=== PATIENT | female | born 1960 | race African-American/Black ===

== ENCOUNTER 2020-07-28 17:08 | Outpatient (REF) | payer MEDICARE, BC, SELFPAY ==
[2020-07-28 17:19] LABS: MANUAL DIFF FLAG NO
[2020-07-28 17:26] LABS: Basophils Percent Auto 0.4 % (0-2); Eosinophils Absolute Auto 0.3 X10*3/uL (0.0-0.4); Eosinophils Percent Auto 4.3 % (0-4); Hematocrit 41.4 % (37-47); Imm Gran Abs Auto 0.04 X10*3/uL (0.00-0.03); Imm Gran Pct Auto 0.6 % (0.0-0.4); Lymphocytes Absolute Auto 1.7 X10*3/uL (1.2-4.9); Lymphocytes Percent Auto 23.8 % (20-40); Mean Corpuscular HGB Conc 31.4 g/dl (31.0-35.0); Mean Corpuscular Volume 92.2 fL (80-98); Mean Platelet Volume 11.6 fL (9.4-12.3); Monocytes Absolute Auto 0.6 X10*3/uL (0.1-1.2); Monocytes Percent Auto 8.3 % (2-11); Neutrophils Absolute Auto 4.6 X10*3/uL (2.0-8.3); Neutrophils Percent Auto 62.6 % (45-73); Platelet Count 284 X10*3/uL (160-400); Red Blood Count 4.49 X10*6/uL (4.20-5.50); Red Cell Distribution Width 13.9 % (11.0-16.0); White Blood Count 7.3 X10*3/uL (4.8-10.8)
[2020-07-28 17:48] LABS: Alanine Aminotransferase 31 U/L (0-31); Albumin Level 3.6 g/dL (3.5-5.0); Alkaline Phosphatase 119 U/L (39-117); Anion Gap 15 (12-20); Aspartate Amino Transferase 37 U/L (5-31); Bilirubin Total 0.5 mg/dL (0.0-1.0); Blood Urea Nitrogen 16 mg/dL (9-16); Calcium 8.7 mg/dL (8.4-10.2); Carbon Dioxide 22 mmol/L (22-29); Chloride 102 mmol/L (96-108); Estimated Glomerular Filt Rate > 60; Glucose Random 100 mg/dL (60-115); Potassium 5.1 mmol/l (3.3-5.1); Sodium 134 mmol/L (135-145); Total Protein 7.1 g/dL (6.5-8.0)
== END 2020-07-28 17:09 | disposition home or self-care (01) ==
LOC: HO.HVNA 17:08
PROVIDERS: Visit Provider Internal Medicine Infectious Disease
DX: M86.9 Osteomyelitis, unspecified (principal)
CPT/HCPCS: 36415; 80053; 85025

== ENCOUNTER 2020-08-04 14:05 | Outpatient (REF) | payer MEDICARE, MEDICAID, BC, SELFPAY ==
[2020-08-04 14:13] LABS: MANUAL DIFF FLAG NO
[2020-08-04 14:19] LABS: Basophils Percent Auto 0.7 % (0-2); Eosinophils Absolute Auto 0.3 X10*3/uL (0.0-0.4); Eosinophils Percent Auto 6.4 % (0-4); Hematocrit 41.2 % (37-47); Hemoglobin 12.7 g/dl (12.0-16.0); Imm Gran Abs Auto 0.01 X10*3/uL (0.00-0.03); Imm Gran Pct Auto 0.2 % (0.0-0.4); Lymphocytes Percent Auto 22.9 % (20-40); Mean Corpuscular HGB Conc 30.8 g/dl (31.0-35.0); Mean Corpuscular Hemoglobin 28.5 pg (27.0-33.0); Mean Corpuscular Volume 92.4 fL (80-98); Mean Platelet Volume 12.1 fL (9.4-12.3); Monocytes Absolute Auto 0.3 X10*3/uL (0.1-1.2); Monocytes Percent Auto 6.9 % (2-11); Neutrophils Absolute Auto 2.7 X10*3/uL (2.0-8.3); Neutrophils Percent Auto 62.9 % (45-73); Platelet Count 244 X10*3/uL (160-400); Red Blood Count 4.46 X10*6/uL (4.20-5.50); Red Cell Distribution Width 13.8 % (11.0-16.0); White Blood Count 4.4 X10*3/uL (4.8-10.8)
[2020-08-04 15:28] LABS: Alanine Aminotransferase 18 U/L (0-31); Albumin Level 3.4 g/dL (3.5-5.0); Alkaline Phosphatase 111 U/L (39-117); Anion Gap 14 (12-20); Aspartate Amino Transferase 19 U/L (5-31); Bilirubin Total 0.4 mg/dL (0.0-1.0); Blood Urea Nitrogen 15 mg/dL (9-16); Calcium 8.5 mg/dL (8.4-10.2); Carbon Dioxide 27 mmol/L (22-29); Chloride 102 mmol/L (96-108); Estimated Glomerular Filt Rate > 60; Glucose Random 101 mg/dL (60-115); Potassium 3.9 mmol/l (3.3-5.1); Sodium 139 mmol/L (135-145); Total Protein 6.5 g/dL (6.5-8.0)
== END 2020-08-04 14:06 | disposition home or self-care (01) ==
LOC: HO.LNP 14:05
PROVIDERS: Visit Provider Internal Medicine Infectious Disease
DX: M86.9 Osteomyelitis, unspecified (principal)
CPT/HCPCS: 36415; 80053; 85025

== ENCOUNTER 2020-08-10 14:11 | Outpatient (REF) | payer MEDICARE, BC, SELFPAY ==
[2020-08-10 14:13] LABS: MANUAL DIFF FLAG NO
[2020-08-10 14:18] LABS: Basophils Absolute Auto 0.1 X10*3/uL (0.0-0.2); Basophils Percent Auto 1.1 % (0-2); Eosinophils Absolute Auto 0.4 X10*3/uL (0.0-0.4); Eosinophils Percent Auto 8.3 % (0-4); Hematocrit 39.4 % (37-47); Hemoglobin 12.1 g/dl (12.0-16.0); Imm Gran Abs Auto 0.01 X10*3/uL (0.00-0.03); Imm Gran Pct Auto 0.2 % (0.0-0.4); Lymphocytes Absolute Auto 1.3 X10*3/uL (1.2-4.9); Lymphocytes Percent Auto 28.9 % (20-40); Mean Corpuscular HGB Conc 30.7 g/dl (31.0-35.0); Mean Corpuscular Hemoglobin 28.1 pg (27.0-33.0); Mean Corpuscular Volume 91.6 fL (80-98); Mean Platelet Volume 12.6 fL (9.4-12.3); Monocytes Absolute Auto 0.4 X10*3/uL (0.1-1.2); Monocytes Percent Auto 9.4 % (2-11); Neutrophils Absolute Auto 2.4 X10*3/uL (2.0-8.3); Neutrophils Percent Auto 52.1 % (45-73); Platelet Count 228 X10*3/uL (160-400); Red Cell Distribution Width 13.8 % (11.0-16.0); White Blood Count 4.6 X10*3/uL (4.8-10.8)
[2020-08-10 14:54] LABS: Alanine Aminotransferase 17 U/L (0-31); Albumin Level 3.3 g/dL (3.5-5.0); Alkaline Phosphatase 97 U/L (39-117); Anion Gap 10 (12-20); Aspartate Amino Transferase 16 U/L (5-31); Bilirubin Total 0.4 mg/dL (0.0-1.0); Blood Urea Nitrogen 16 mg/dL (9-16); Calcium 8.5 mg/dL (8.4-10.2); Carbon Dioxide 29 mmol/L (22-29); Chloride 104 mmol/L (96-108); Estimated Glomerular Filt Rate > 60; Glucose Random 123 mg/dL (60-115); Potassium 4.4 mmol/l (3.3-5.1); Sodium 139 mmol/L (135-145); Total Protein 6.2 g/dL (6.5-8.0)
== END 2020-08-10 14:12 | disposition home or self-care (01) ==
LOC: HO.LNP 14:11
PROVIDERS: Visit Provider Internal Medicine
DX: M86.9 Osteomyelitis, unspecified (principal)
CPT/HCPCS: 36415; 80053; 85025

== ENCOUNTER 2020-08-20 13:03 | Outpatient (REF) | payer MEDICARE, BC, SELFPAY ==
[2020-08-20 13:18] LABS: MANUAL DIFF FLAG NO
[2020-08-20 13:33] LABS: Basophils Percent Auto 0.6 % (0-2); Eosinophils Absolute Auto 0.4 X10*3/uL (0.0-0.4); Hematocrit 41.1 % (37-47); Hemoglobin 12.8 g/dl (12.0-16.0); Imm Gran Abs Auto 0.02 X10*3/uL (0.00-0.03); Imm Gran Pct Auto 0.4 % (0.0-0.4); Lymphocytes Absolute Auto 1.3 X10*3/uL (1.2-4.9); Lymphocytes Percent Auto 24.9 % (20-40); Mean Corpuscular HGB Conc 31.1 g/dl (31.0-35.0); Mean Corpuscular Hemoglobin 28.6 pg (27.0-33.0); Mean Corpuscular Volume 91.9 fL (80-98); Mean Platelet Volume 12.8 fL (9.4-12.3); Monocytes Absolute Auto 0.4 X10*3/uL (0.1-1.2); Monocytes Percent Auto 7.8 % (2-11); Neutrophils Absolute Auto 2.9 X10*3/uL (2.0-8.3); Neutrophils Percent Auto 58.3 % (45-73); Platelet Count 206 X10*3/uL (160-400); Red Blood Count 4.47 X10*6/uL (4.20-5.50)
[2020-08-20 13:58] LABS: Alanine Aminotransferase 18 U/L (0-31); Albumin Level 3.3 g/dL (3.5-5.0); Alkaline Phosphatase 117 U/L (39-117); Anion Gap 11 (12-20); Aspartate Amino Transferase 16 U/L (5-31); Bilirubin Total 0.3 mg/dL (0.0-1.0); Blood Urea Nitrogen 11 mg/dL (9-16); Calcium 8.5 mg/dL (8.4-10.2); Carbon Dioxide 29 mmol/L (22-29); Chloride 103 mmol/L (96-108); Estimated Glomerular Filt Rate > 60; Glucose Random 110 mg/dL (60-115); Potassium 3.9 mmol/l (3.3-5.1); Sodium 139 mmol/L (135-145); Total Protein 6.1 g/dL (6.5-8.0)
== END 2020-08-20 13:04 | disposition home or self-care (01) ==
LOC: HO.HVNA 13:03
PROVIDERS: Visit Provider Internal Medicine Infectious Disease
DX: M86.9 Osteomyelitis, unspecified (principal)
CPT/HCPCS: 36415; 80053; 85025

== ENCOUNTER 2020-10-28 14:38 | Outpatient (REF) | payer MEDICARE, MEDICAID, BC, SELFPAY ==
[2020-10-29 09:41] LABS: Glucose Urine UA NEG (NEG); Leukocyte Esterase Urine 2+ (NEG); Nitrite Urine NEG (NEG); PH 6.5 (5.0-8.0); Specific Gravity - Urine <= 1.005 (1.005-1.025); Urine Blood 1+ (NEG); Urine Ketones NEG (NEG); Urine Protein NEG (NEG-TRACE)
[2020-10-29 09:42] LABS: Appearance Urine CLEAR; Color Urine STRAW
[2020-10-29 10:00] LABS: Amorphous Sediment Urine TRACE /LPF; Bacteria Urine TRACE /LPF; RBC Urine 0-2 /HPF (0); Renal Epithelial Cells Urine TRACE /LPF; Squamous Epithelial Cell Urine TRACE /LPF
== END 2020-10-28 14:39 | disposition home or self-care (01) ==
LOC: HO.LNP 14:38
PROVIDERS: Visit Provider Internal Medicine
DX: N31.2 Flaccid neuropathic bladder, not elsewhere classified (principal)
CPT/HCPCS: 81001; 87086

== ENCOUNTER 2020-11-17 14:30 | Outpatient (REF) | payer MEDICARE, BC, MEDICAID, SELFPAY ==
--- NOTE | ~2020-11-17 | US_ITS ---
EXAMINATION: US DIAGNOSTIC ULTRASOUND BREAST, RIGHT US DIAGNOSTIC ULTRASOUND BREAST, LEFT CLINICAL INFORMATION: Bilateral breast pain. Recent normal mammogram at outside facility. COMPARISON: Outside mammography 09/02/2020, 06/24/2019, 05/31/2018 ([facility]). TECHNIQUE: Ultrasound of each breast is targeted to the areas of clinical concern using grayscale imaging and color Doppler without and with harmonics. Each side is imaged 10:00 through 3:00 position. FINDINGS: Right: There is no focal suspicious finding. There is no cystic or solid mass, architectural abnormality, duct ectasia, or edema in the soft tissue planes. No skin thickening. Left: There is no focal suspicious finding. There is no cystic or solid mass, architectural abnormality, duct ectasia, or edema in the soft tissue planes. No skin thickening. Results are discussed with the patient at time of visit. US/US breast LT limited IMPRESSION: Normal study. ASSESSMENT: BI-RADS 1: Negative RECOMMENDATION: 1. Patient's bilateral breast pain should be based on the clinical impression. 2. Otherwise, routine annual screening mammography. This patient's information was entered into a reminder system with a target due date for their next mammogram.
--- NOTE | ~2020-11-17 | US_ITS ---
EXAMINATION: US DIAGNOSTIC ULTRASOUND BREAST, RIGHT US DIAGNOSTIC ULTRASOUND BREAST, LEFT CLINICAL INFORMATION: Bilateral breast pain. Recent normal mammogram at outside facility. COMPARISON: Outside mammography 09/02/2020, 06/24/2019, 05/31/2018 ([facility]). TECHNIQUE: Ultrasound of each breast is targeted to the areas of clinical concern using grayscale imaging and color Doppler without and with harmonics. Each side is imaged 10:00 through 3:00 position. FINDINGS: Right: There is no focal suspicious finding. There is no cystic or solid mass, architectural abnormality, duct ectasia, or edema in the soft tissue planes. No skin thickening. Left: There is no focal suspicious finding. There is no cystic or solid mass, architectural abnormality, duct ectasia, or edema in the soft tissue planes. No skin thickening. Results are discussed with the patient at time of visit. US/US breast RT limited IMPRESSION: Normal study. ASSESSMENT: BI-RADS 1: Negative RECOMMENDATION: 1. Patient's bilateral breast pain should be based on the clinical impression. 2. Otherwise, routine annual screening mammography. This patient's information was entered into a reminder system with a target due date for their next mammogram.
== END 2020-11-17 14:31 | disposition home or self-care (01) ==
LOC: HO.MAMMO 14:30
PROVIDERS: PCP Internal Medicine; Visit Provider Nurse Practitioner Family
DX: N64.4 Mastodynia (principal)
CPT/HCPCS: 76642

== ENCOUNTER 2020-11-24 11:42 | Outpatient (REF) | payer MEDICARE, BC, SELFPAY ==
[2020-11-24 14:04] LABS: Appearance Urine CLOUDY; Color Urine YELLOW; Glucose Urine UA NEG (NEG); Leukocyte Esterase Urine 2+ (NEG); Nitrite Urine POS (NEG); PH 6.5 (5.0-8.0); Specific Gravity - Urine 1.015 (1.005-1.025); Urine Blood 3+ (NEG); Urine Ketones NEG (NEG); Urine Protein NEG (NEG-TRACE)
[2020-11-24 14:22] LABS: Bacteria Urine 4+ /LPF; Renal Epithelial Cells Urine TRACE /LPF; Squamous Epithelial Cell Urine 2+ /LPF; WBC Urine 30-49 /HPF (0-4)
== END 2020-11-24 11:43 | disposition home or self-care (01) ==
LOC: HO.HMGCLNP 11:42
PROVIDERS: Visit Provider Urology
DX: R30.0 Dysuria (principal); R82.90 Unspecified abnormal findings in urine; R82.998 Other abnormal findings in urine
CPT/HCPCS: 81001

== ENCOUNTER → 2020-12-16 13:00 | Outpatient (BNVA) | payer MEDICARE, BC, SELFPAY | PROVIDERS: PCP Internal Medicine; Visit Provider Hospitalist | DX: Z13.89 Encounter for screening for other disorder (principal) | CPT/HCPCS: Q3014 ==

== ENCOUNTER 2021-01-10 14:10 | Outpatient (REF) | payer MEDICARE, BC, SELFPAY ==
--- NOTE | ~2021-01-10 | XR_ITS ---
EXAMINATION: XR FOOT, RIGHT CLINICAL INFORMATION: Edema. COMPARISON: None. TECHNIQUE: AP, lateral, and oblique views of the right foot. FINDINGS: Diffuse osteopenia. No displaced fracture. No dislocation. Joint space narrowing with marginal osteophytes at the 1st metatarsophalangeal joint and hallux sesamoids. No osseous erosion. Tiny plantar calcaneal spur. XR/XR foot RT min 3V IMPRESSION: Prominent osteopenia. 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 Tiny plantar calcaneal spur.
== END 2021-01-10 14:11 | disposition home or self-care (01) ==
LOC: HO.XRAY 14:10
PROVIDERS: PCP Internal Medicine; Visit Provider Internal Medicine
DX: R60.0 Localized edema (principal)
CPT/HCPCS: 73630

== ENCOUNTER → 2021-01-21 14:04 | Outpatient (BNVA) | payer MEDICARE, BC, SELFPAY | PROVIDERS: PCP Internal Medicine; Visit Provider Hospitalist | DX: Z13.89 Encounter for screening for other disorder (principal) | CPT/HCPCS: Q3014 ==

== ENCOUNTER 2021-01-26 14:17 | Outpatient (REF) | payer MEDICARE, BC, SELFPAY ==
[2021-01-26 14:24] LABS: MANUAL DIFF FLAG NO
[2021-01-26 14:37] LABS: Basophils Percent Auto 0.6 % (0-2); Eosinophils Absolute Auto 0.3 X10*3/uL (0.0-0.4); Eosinophils Percent Auto 6.5 % (0-4); Hematocrit 47.1 % (37-47); Hemoglobin 14.6 g/dl (12.0-16.0); Imm Gran Abs Auto 0.02 X10*3/uL (0.00-0.03); Imm Gran Pct Auto 0.4 % (0.0-0.4); Lymphocytes Absolute Auto 0.9 X10*3/uL (1.2-4.9); Lymphocytes Percent Auto 18.2 % (20-40); Mean Corpuscular Hemoglobin 28.2 pg (27.0-33.0); Mean Corpuscular Volume 91.1 fL (80-98); Mean Platelet Volume 12.7 fL (9.4-12.3); Monocytes Absolute Auto 0.5 X10*3/uL (0.1-1.2); Monocytes Percent Auto 10.2 % (2-11); Neutrophils Absolute Auto 3.1 X10*3/uL (2.0-8.3); Neutrophils Percent Auto 64.1 % (45-73); Platelet Count 236 X10*3/uL (160-400); Red Blood Count 5.17 X10*6/uL (4.20-5.50); Red Cell Distribution Width 15.3 % (11.0-16.0); White Blood Count 4.9 X10*3/uL (4.8-10.8)
[2021-01-26 15:11] LABS: Alanine Aminotransferase 15 U/L (0-31); Albumin Level 3.7 g/dL (3.5-5.0); Alkaline Phosphatase 170 U/L (39-117); Anion Gap 13 (12-20); Aspartate Amino Transferase 23 U/L (5-31); Bilirubin Total 0.5 mg/dL (0.0-1.0); Blood Urea Nitrogen 12 mg/dL (9-16); Carbon Dioxide 28 mmol/L (22-29); Chloride 103 mmol/L (96-108); Cholesterol 197 mg/dL; Estimated Glomerular Filt Rate > 60; Glucose Fasting 72 mg/dL (60-99); HDL Cholesterol 43 mg/dL; LDL Cholesterol Calculated 138 mg/dl; Potassium 4.2 mmol/L (3.3-5.1); Sodium 140 mmol/L (135-145); Total Protein 6.8 g/dL (6.5-8.0); Triglycerides 82 mg/dL
[2021-01-26 15:44] LABS: Folate > 20.0 ng/mL (> or = 4.0); Vitamin B12 1550 pg/mL (200-900)
[2021-01-30 21:46] LABS: Vitamin D 25-OH, D2 <4 ng/mL; Vitamin D 25-OH, D3 55 ng/mL; Vitamin D 25-OH, Total 55 ng/mL (30-100)
== END 2021-01-26 14:18 | disposition home or self-care (01) ==
LOC: HO.LNP 14:17
PROVIDERS: Visit Provider Internal Medicine
DX: E53.8 Deficiency of other specified B group vitamins (principal); E55.9 Vitamin D deficiency, unspecified; D64.9 Anemia, unspecified; E78.5 Hyperlipidemia, unspecified; J44.9 Chronic obstructive pulmonary disease, unspecified
CPT/HCPCS: 80053; 80061; 82306; 82607; 82746; 85025

== ENCOUNTER 2022-03-03 15:45 | Outpatient (REF) | payer MEDICARE, MEDICAID, SELFPAY ==
[2022-03-03 16:08] LABS: MANUAL DIFF FLAG NO
[2022-03-03 16:18] LABS: Venous Blood Gas Refer to POC result
[2022-03-03 16:20] LABS: VBG Base Excess -1.1 mmol/L; VBG pCO2 39 mmHg; VBG pH 7.38 (7.32-7.43); VBG pO2 68 mmHg
[2022-03-03 16:21] LABS: VBG HCO3 23 mmol/L (22-26)
[2022-03-03 16:49] LABS: Basophils Percent Auto 0.6 % (0-2); Eosinophils Absolute Auto 0.3 X10*3/uL (0.0-0.4); Eosinophils Percent Auto 5.7 % (0-4); Hematocrit 43.7 % (37.0-47.0); Hemoglobin 13.7 g/dl (12.0-16.0); Imm Gran Abs Auto 0.01 X10*3/uL (0.00-0.03); Imm Gran Pct Auto 0.2 % (0.0-0.4); Lymphocytes Absolute Auto 1.1 X10*3/uL (1.2-4.9); Lymphocytes Percent Auto 21.2 % (20-40); Mean Corpuscular HGB Conc 31.4 g/dl (31.0-35.0); Mean Corpuscular Volume 92.4 fL (80.0-98.0); Mean Platelet Volume 12.5 fL (9.4-12.3); Monocytes Absolute Auto 0.6 X10*3/uL (0.1-1.2); Monocytes Percent Auto 12.2 % (2-11); Neutrophils Absolute Auto 3.2 x10*3/uL (2.0-8.3); Neutrophils Percent Auto 60.1 % (45-73); Platelet Count 184 X10*3/uL (160-400); Red Blood Count 4.73 X10*6/uL (4.20-5.50); Red Cell Distribution Width 14.5 % (11.0-16.0); White Blood Count 5.2 X10*3/uL (4.8-10.8)
[2022-03-03 17:22] LABS: Alanine Aminotransferase 26 U/L (0-31); Albumin Level 3.8 g/dL (3.5-5.0); Alkaline Phosphatase 132 U/L (39-117); Anion Gap 14 (12-20); Aspartate Amino Transferase 30 U/L (5-31); Bilirubin Direct < 0.2 mg/dL (0.0-0.5); Bilirubin Total 0.3 mg/dL (0.0-1.0); Blood Urea Nitrogen 13 mg/dL (9-16); Calcium 9.4 mg/dL (8.4-10.2); Carbon Dioxide 24 mmol/L (22-29); Chloride 105 mmol/L (96-108); Estimated Glomerular Filt Rate > 60; Glucose Random 97 mg/dL (60-115); Potassium 4.5 mmol/L (3.3-5.1); Sodium 138 mmol/L (135-145); Total Protein 7.1 g/dL (6.5-8.0)
[2022-03-03 17:36] LABS: Erythrocyte Sedimentation Rate 17 MM/HR (0-20)
[2022-03-03 18:10] LABS: Folate > 20.0 ng/mL (> or = 4.0); Vitamin B12 1488 pg/mL (200-900)
== END 2022-03-03 15:46 | disposition home or self-care (01) ==
LOC: HO.LAB 15:45
PROVIDERS: PCP Internal Medicine; Referring Provider Internal Medicine; Visit Provider Hospitalist
DX: J96.10 Chronic respiratory failure, unspecified whether with hypoxia or hypercapnia (principal); J98.4 Other disorders of lung; G71.00 Muscular dystrophy, unspecified; G36.9 Acute disseminated demyelination, unspecified; J44.9 Chronic obstructive pulmonary disease, unspecified; Z78.9 Other specified health status
CPT/HCPCS: 36415; 80048; 80076; 82607; 82746; 82803; 85025; 85652; 99212

== ENCOUNTER → 2022-08-25 14:16 | Outpatient (BNVA) | payer MEDICARE, BC, MEDICAID, SELFPAY | PROVIDERS: PCP Internal Medicine; Visit Provider Hospitalist | DX: J96.12 Chronic respiratory failure with hypercapnia (principal); G36.9 Acute disseminated demyelination, unspecified; J98.4 Other disorders of lung; G71.00 Muscular dystrophy, unspecified | CPT/HCPCS: 99212 ==

== ENCOUNTER 2023-01-16 12:36 | Outpatient (REF) | payer MEDICARE, MEDICAID, SELFPAY | END 2023-01-16 12:37 | disposition home or self-care (01) | LOC: HO.HMGCLNP 12:36 | PROVIDERS: Visit Provider Urology | DX: N39.0 Urinary tract infection, site not specified (principal) | CPT/HCPCS: 87086 ==

== ENCOUNTER 2023-01-19 16:28 | Outpatient (REF) | payer MEDICARE, MEDICAID, SELFPAY ==
[2023-01-19 16:37] LABS: Appearance Urine Clear; Color Urine Yellow; Glucose Urine UA Negative (Negative); Leukocyte Esterase Urine Moderate (2+) (Negative); Nitrite Urine Negative (Negative); PH 7.5 (5.0-9.0); Specific Gravity - Urine <= 1.005 (1.005-1.025); UMIC TRIGGER UA YES; Urine Blood Negative (Negative); Urine Ketones Negative (Negative); Urine Protein Negative (Neg-Trace)
[2023-01-19 16:42] LABS: Bacteria Urine None Seen (None Seen); Hyaline Casts Urine 0-2 /LPF (0-2); RBC Urine 0-2 /HPF (0-2); Squamous Epithelial Cell Urine 0-2 /HPF (0-2)
[2023-01-19 17:30] LABS: WBC Urine 0-5 /HPF (0-5)
== END 2023-01-19 16:29 | disposition home or self-care (01) ==
LOC: HO.HVNA 16:28
PROVIDERS: PCP Urology; Visit Provider Urology
DX: R30.0 Dysuria (principal)
CPT/HCPCS: 81001; 87086; 87088; 87186

== ENCOUNTER → 2023-02-22 14:19 | Outpatient (BNVA) | payer MEDICARE, BC, MEDICAID, SELFPAY | PROVIDERS: PCP Internal Medicine; Visit Provider Hospitalist | DX: J96.12 Chronic respiratory failure with hypercapnia (principal); G36.9 Acute disseminated demyelination, unspecified | CPT/HCPCS: 99212 ==

== ENCOUNTER 2023-07-11 16:18 | Outpatient (AMB) | payer MEDICARE, BC, MEDICAID, SELFPAY ==
[2023-07-11 16:20] VITALS: BP 90/68; PULSE 71; O2SAT 97
--- NOTE | 2023-07-11 16:20 | A.OFFPC_ITS ---
Vital Signs 07/11/23 16:20 Height 5 ft 8 in BMI Reason not done Patient refused/unable BP 90/68 Blood Pressure Location Lt brachial Position Sitting Pulse 71 Pulse Source Pulse Oximeter Temp Source Skin Pulse Oximetry (%) 97 Oxygen Delivery Method Room Air Intake Visit Reasons: Annual PE Intake Note: Patient is here today for a physical. Miller Supervisor Required: No Allergies blackberry Allergy (Severe, Verified 07/11/23 16:39) Rash and Hives lanolin Allergy (Severe, Verified 07/11/23 16:39) Rash and Hives latex [LATEX] Allergy (Severe, Verified 07/11/23 16:39) RASH Sulfa (Sulfonamide Antibiotics) [SULFA (SULFONAMIDE ANTIBIOTICS)] Allergy (Severe, Verified 07/11/23 16:39) JUANDICE tree nut [TREE NUT] Allergy (Severe, Verified 07/11/23 16:39) ANAPHYLAXIS rasberries Allergy (Severe, Uncoded 07/11/23 16:39) Rash and Hives Tetanus Allergy (Severe, Uncoded 07/11/23 16:39) Rash and Hives Medication List - Last Reconciled 07/11/23 by ANDI Mccarty albuterol sulfate 90 mcg/actuation 2 puffs inhalation Q6H PRN albuterol sulfate 1.25 mg (3 mL) inhalation QID baclofen 10 mg PO TID biotin 5 mg PO DAILY budesonide 0.25 mg (2 mL) inhalation DAILY 30 days cholecalciferol (vitamin D3) 50 mcg PO DAILY [id number]-Vm-ubsta-mushroomcmb [phone] zo-llx-[id number]-mg tabs PO diaper,brief,adult,disposable Size large disposable gloves As directed epinephrine IM DIRECTED latex gloves (Latex Gloves, Large) As directed methenamine hippurate 1 g PO BID midodrine 5 mg PO TID 90 days multivitamin 1 tab PO DAILY nebulizers As directed omega-3 fatty acids 500 mg PO DAILY peg 400-propylene glycol 0.4-0.3 % (Systane Gel) 1 drp ophthalmic (eye) BEDTIME 30 days quetiapine (Seroquel) 25 mg PO TID 90 days [robu cushion As directed] sertraline 50 mg PO DAILY underpads As directed [wheelchair motorized with Roku cushion As directed] zinc gluconate 15 mg PO DAILY Tobacco use date assessed: 07/11/23 Dental Screening Dental Screen Date: 07/11/23 Did you have a dental visit in the last 12 months?: Yes Did you have a dental problem in the last 6 months where you did not have access to dental care?: No Was dental information given to patient?: Patient has dentist HPI Annual PE HPI Details Patient is a 62-year-old female presents today for physical exam. Pat ient of Dr. Simon, last visit 05/2022. 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 Patient reports history of pneumonia vaccine. She is allergic to tetanus vaccine. Patient will call for an eye exam. She has an upcoming appointment with her dentist. Patient reports normal Pap smear less than [address] Humphrey and she will call gynecology for an appointment. Mammogram normal 11/2022 at [facility]. Patient reports colonoscopy at age 56 which was normal and repeat in 10 years at [facility], will request records. Patient reports vaginal spotting last week, she reports this in the past and she did have D&C, patient will call her gynecology for an appo intment. Patient also reports that her right breast seems to be flatter compared to the left breast, she will call her gynecology for an evaluation. Patient reports intermittent constipation, does not take anything, reports trying to eating more fruits now, she did have normal bowel movement today. Patient also reports hard time staying asleep and she also on Seroquel 25 mg t.i.d.. No shortness of breath or chest pain. 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 Chronic respiratory failure Decubitus ulcer, stage 4 Mild depression Wheelchair bound Hypovitaminosis D B12 deficiency Muscle spasm Idiopathic hypotension Neuromyelitis Surgical History Tracheostomy status Status post insertion of percutaneous endoscopic gastrostomy (PEG) tube History of lipoma Family History Father Diabetes Bone cancer Mother Diabetes Social History Housing: House Alcohol intake: never Patient Tobacco Use Status: Former Tobacco user Tobacco use type: Cigarette Years Smoked: 2 years e-Cigarette/Vaping Use: Never Used Second Hand Smoke Exposure: No service: No Current occupational status: disabled Cognitive needs: Yes Hearing needs: Yes Vision needs: Yes Questionnaire PHQ-9 Over the last 2 weeks, how often have you been bothered by any of the following problems? 1. Little interest or pleasure in doing things: several days 2. Feeling down, depressed, or hopeless: several days 3. Trouble falling or staying asleep, or sleeping too much: more than half the days 4. Feeling tired or having little energy: not at all 5. Poor appetite or overeating: not at all 6. Feeling bad about yourself - or that you are a failure or have let yourself or your family down: not at all 7. Trouble concentrating on things, such as reading the newspaper or watching television: not at all 8. Moving or speaking so slowly that other people could have noticed. Or the opposite - being so fidgety or restless that you have been moving around a lot more than usual: not at all 9. Thoughts that you would be better off or of hurting yourself in some way: not at all Total score: 4 Depression Screening Interpretation: Negative Depression Screening Done: Yes 98313 - PHQ-9 Billing: Yes Source: Developed by Drs. Alek Gleason, Parul Snyder, Nick Godoy and colleagues, with an educational ankit from [employer]. Thrive Questionnaire Date Thrive assessed: 07/11/23 I am a: Patient What is your living situation today?: I have a steady place to live Within the past 12 months, did the food you bought not last and you didn't have the money to get more?: Never true Within the past 12 months, did you worry whether your food would run out before you got money to buy more?: Never true Do you have trouble paying for medicines?: No Do you have trouble getting transportation to medical appointments?: No Do you have trouble paying your heating and electricity bill?: No Do you have trouble taking care of your child, family member or friend?: No Do you have trouble with day-to-day activities such as bathing, preparing meals, shopping, managing finances, etc.?: No Are you currently unemployed and looking for a job?: No Are you interested in more education?: No Currently or been in a relationship where the following occur: no concerns reported AUDIT C Alcohol Use Questionnaire (AUDIT-C) 1. How often do you have a drink containing alcohol?: Never 3. How often do you have six or more drinks on one occasion?: Never Total Score: 0 Score Reviewed/Action Taken: No DARINEL-7 AMB Questionnaire DARINEL-7 Date DARINEL - 7 assessed: 07/11/23 Feeling nervous, anxious, or on edge: 1 = Several days Not being able to stop or control worryin = Several days Worrying too much about different things: 0 = Not at all Trouble relaxin = Not at all Being so restless that it is hard to sit still: 0 = Not at all Becoming easily annoyed or irritable: 0 = Not at all Feeling afraid as if something awful might happen: 0 = Not at all Total DARINEL-7 score (0-4 normal; 5-9 mild; 10-14 moderate; 15-21 severe): 2 Source: Developed by Drs. Alek Gleason, Parul Snyder, Nick Godoy and colleagues, with an educational ankit from [employer]. DARINEL-7 Assessment Billing DARINEL-7 Assessment Tool: DARINEL-7 Assessment 42071 Review of Systems Const Denies body aches, Denies chills, Denies fever(s) and Reports headache(s) (Intermittent) Eyes Denies change in vision ENT Denies dizziness, Denies otalgia, Reports headache(s) (Intermittent), Denies nasal discharge, Denies sinus pain and Denies sore throat Card Denies chest pain, Denies edema, Denies lightheadedness and Denies dyspnea Resp Denies cough, Denies dyspnea and Denies wheezing GI Denies abdominal pain, Reports constipation (Intermittent), Reports dyspepsia, Denies diarrhea, Denies nausea and Denies vomiting Details: Has suprapubic catheter Reports as per HPI Musc Reports as per HPI and Denies myalgias Skin/Breast Reports as per HPI and Denies rash Neuro Denies dizziness and Reports headache(s) (Intermittent) Aller/Immun Denies wheezing Physical exam (Primary Care) Vital Signs: Last Vital Signs Pulse 71 07/11/23 16:20 BP 90/68 07/11/23 16:20 Pulse Ox 97 07/11/23 16:20 Oxygen Delivery Method Room Air 07/11/23 16:20 Tobacco/Smoking Status: Tobacco use Status Tobacco use date assessed 07/11/23 07/11/23 16:22 Patient Tobacco Use Status Former Tobacco user 07/11/23 16:22 Tobacco use type Cigarette 07/11/23 16:22 e-Cigarette/Vaping Use Never Used 07/11/23 16:22 PHQ-9: PHQ-9 Score PHQ-9: Total score 4 07/11/23 16:43 Depression Screening Interpretation: Negative Thrive Assessment: Date of Thrive Assessment Date Thrive assessed 07/11/23 07/11/23 16:22 Currently or been in a relationship where the following occur: no concerns reported Const Other: Wheelchair-bound General: cooperative and no acute distress Orientation/consciousness: patient oriented x3 HENMT Other: Left TM obstructed by cerumen Right TM normal Head: Yes normocephalic and Yes atraumatic Face and sinus: Yes sinuses nontender Mouth: oropharynx normal and moist mucous membranes Throat: Yes posterior oropharynx normal Eyes General: appearance normal, both eyes and all related structures Pupils: Equal, round and reactive pupils present EOM: EOMs intact bilaterally Neck Neck: Yes normal visual inspection, Yes full ROM and Yes no lymphadenopathy Thyroid: Thyroid normal Resp Effort & Inspection: normal respiratory effort and able to speak in complete sentences Auscultation: clear to auscultation bilaterally, no crackles, no rales, no rhonchi and no wheezes Cardio Rate: regular rate Rhythm: regular rhythm Heart sounds: S1 normal heart sound present, S2 normal heart sound present and no murmurs GI Palpation (GI): Soft to palpation, not firm, nontender, no guarding, not rigid and no hepatosplenomegaly Auscultation: normal bowel sounds Other: Has suprapubic catheter Skin General skin exam: no rashes or lesions noted Neuro General: patient oriented x3 Cranial nerves: Yes Equal, round and reactive pupils present Motor exam (neuro): 5/5 motor strength present throughout (Bilateral upper extremity) Extrem Other: Full range of motion to bilateral upper extremity Paralyzed from umbilicus down Assessment and Plan Assessment & Plan (1) Constipation: Code(s): K59.00 - Constipation, unspecified Plan: Increase dietary fiber and fluid consumption Sent Colace 100 mg daily p.r.n. 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: Code(s): J98.4 - Other disorders of lung; G71.00 - Muscular dystrophy, unspecified Plan: Continue to follow-up with [place] [facility] (4) Mild depression: Code(s): F32.0 - Major depressive disorder, single episode, mild Plan: Stable with sertraline Patient declined referral to counseling (5) Muscle spasm: Code(s): M62.838 - Other muscle spasm Plan: Continue baclofen (6) Idiopathic hypotension: Code(s): I95.0 - Idiopathic hypotension Plan: On midodrine (7) Neuromyelitis: Comment: Resulting in Neuromuscular disease Code(s): G36.9 - Acute disseminated demyelination, unspecified Plan: Continue to follow-up with neurology at [facility] every 6 months (8) Insomnia: Code(s): G47.00 - Insomnia, unspecified Plan: Patient can try [id number] melatonin as needed Reinforced sleep hygiene (9) GERD (gastroesophageal reflux disease): Code(s): K21.9 - Gastro-esophageal reflux disease without esophagitis Plan: Patient reports that she was taking Pepcid in the past and she stopped, not interested in other medications Encouraged to avoid GERD trigger foods Do not lay down 2-3 hours after evening meal Patient can try [id number] Tums p.r.n. Plan Follow-up with PCP in 6 months or sooner as needed Orders: Orders Vitamin D 25-OH Total Today Z00.00 - Encounter for general adult medical examination without abnormal findings Vitamin B12 and Folate Today Z00.00 - Encounter for general adult medical examination without abnormal findings Comprehensive [place]. Panel Fast Today Z00.00 - Encounter for general adult medical examination without abnormal findings TSH reflex Free T4 Today Z00.00 - Encounter for general adult medical examination without abnormal findings Lipid Panel Today Z00.00 - Encounter for general adult medical examination without abnormal findings Complete Blood Count Auto Diff Today Z00.00 - Encounter for general adult medical examination without abnormal findings Medications: New docusate sodium (Colace) 100 mg PO DAILY PRN 30 caps 0RF constipation K59.00 - Constipation, unspecified Coding Level of Care Code Est Pt Prev Care 40-64y(58006) Diagnoses Constipation K59.00 Adult general medical exam Z00.00 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 J98.4; G71.00 Mild depression F32.0 Muscle spasm M62.838 Idiopathic hypotension I95.0 Neuromyelitis G36.9 Insomnia G47.00 GERD (gastroesophageal reflux disease) K21.9 Additional Codes DARINEL-7 Assessment Billing - DARINEL-7 Assessment Tool: DARINEL-7 Assessment [id number] ([id number])
== END 2023-07-11 17:10 | disposition home or self-care (01) ==
PROVIDERS: PCP Internal Medicine; Visit Provider Nurse Practitioner Family
DX: Z00.00 Encounter for general adult medical examination without abnormal findings (principal); G71.00 Muscular dystrophy, unspecified; F32.0 Major depressive disorder, single episode, mild; G36.9 Acute disseminated demyelination, unspecified; K59.00 Constipation, unspecified; J98.4 Other disorders of lung; M62.838 Other muscle spasm; I95.0 Idiopathic hypotension; G47.00 Insomnia, unspecified; K21.9 Gastro-esophageal reflux disease without esophagitis
CPT/HCPCS: 99396

== ENCOUNTER 2024-01-08 15:08 | Outpatient (REF) | payer MEDICARE, BC, MEDICAID, SELFPAY ==
[2024-01-08 15:25] LABS: MANUAL DIFF FLAG NO
[2024-01-08 15:39] LABS: Basophils Percent Auto 0.7 % (0-2); Eosinophils Absolute Auto 0.2 X10*3/uL (0.0-0.4); Eosinophils Percent Auto 3.7 % (0-4); Hemoglobin 14.5 g/dl (12.0-16.0); Imm Gran Abs Auto 0.02 X10*3/uL (0.00-0.03); Imm Gran Pct Auto 0.4 % (0.0-0.4); Lymphocytes Absolute Auto 0.8 X10*3/uL (1.2-4.9); Lymphocytes Percent Auto 14.2 % (20-40); Mean Corpuscular HGB Conc 32.2 g/dl (31.0-35.0); Mean Corpuscular Hemoglobin 29.6 pg (27.0-33.0); Mean Corpuscular Volume 91.8 fL (80.0-98.0); Mean Platelet Volume 11.8 fL (9.4-12.3); Monocytes Absolute Auto 0.4 X10*3/uL (0.1-1.2); Monocytes Percent Auto 7.6 % (2-11); Neutrophils Absolute Auto 3.9 x10*3/uL (2.0-8.3); Neutrophils Percent Auto 73.4 % (45-73); Platelet Count 212 X10*3/uL (160-400); Red Cell Distribution Width 13.2 % (11.0-16.0); White Blood Count 5.4 X10*3/uL (4.8-10.8)
[2024-01-08 16:54] LABS: Alanine Aminotransferase 13 U/L (0-31); Albumin Level 3.8 g/dL (3.5-5.0); Alkaline Phosphatase 94 U/L (39-117); Anion Gap 13 (12-20); Aspartate Amino Transferase 16 U/L (5-31); Bilirubin Total 0.4 mg/dL (0.0-1.0); Blood Urea Nitrogen 10 mg/dL (9-16); Calcium 9.3 mg/dL (8.4-10.2); Carbon Dioxide 22 mmol/L (22-29); Chloride 104 mmol/L (96-108); Estimated Glomerular Filt Rate > 60; Glucose Fasting 76 mg/dL (60-99); Potassium 3.8 mmol/L (3.3-5.1); Sodium 135 mmol/L (135-145); Total Protein 7.2 g/dL (6.5-8.0)
[2024-01-08 16:57] LABS: Thyroid Stimulating Hormone 0.39 uIU/mL (0.32-4.0); Vitamin D 25-OH Total 50.2 ng/mL (>30)
[2024-01-08 19:10] LABS: Folate 12.4 ng/mL (> or = 4.0); Vitamin B12 > 2000 pg/mL (200-900)
== END 2024-01-08 15:09 | disposition home or self-care (01) ==
LOC: HO.LAB 15:08
PROVIDERS: PCP Internal Medicine; Visit Provider Internal Medicine
DX: J44.9 Chronic obstructive pulmonary disease, unspecified (principal); E55.9 Vitamin D deficiency, unspecified; E53.8 Deficiency of other specified B group vitamins; R53.83 Other fatigue; J98.4 Other disorders of lung; G71.00 Muscular dystrophy, unspecified
CPT/HCPCS: 36415; 80053; 82306; 82607; 82746; 84443; 85025

== ENCOUNTER 2024-01-15 14:03 | Outpatient (AMB) | payer MEDICARE, BC, MEDICAID, SELFPAY ==
--- NOTE | 2024-01-15 14:09 | MHC.PC.OV ---
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 Required: No Accompanied by: Self / Same As Patient Allergies blackberry Allergy (Severe, Verified 01/15/24 14:30) Rash and Hives lanolin Allergy (Severe, Verified 01/15/24 14:30) Rash and Hives latex [LATEX] Allergy (Severe, Verified 01/15/24 14:30) RASH Sulfa (Sulfonamide Antibiotics) [SULFA (SULFONAMIDE ANTIBIOTICS)] Allergy (Severe, Verified 01/15/24 14:30) JUANDICE tree nut [TREE NUT] Allergy (Severe, Verified 01/15/24 14:30) ANAPHYLAXIS rasberries Allergy (Severe, Uncoded 01/15/24 14:30) Rash and Hives Tetanus Allergy (Severe, Uncoded 01/15/24 14:30) Rash and Hives Medication List - Last Reconciled 01/15/24 by Parul Sexton MD albuterol sulfate 90 mcg/actuation 2 puffs inhalation Q6H PRN albuterol sulfate 1.25 mg (3 mL) inhalation QID baclofen 10 mg PO TID biotin 5 mg PO DAILY budesonide 0.25 mg (2 mL) inhalation DAILY 30 days cholecalciferol (vitamin D3) 50 mcg PO DAILY gciuaycyr-[id number]-uofnh-mushroomcmb [phone] rw-dxw-vg-mg tabs PO diaper,brief,adult,disposable Size large disposable gloves As directed docusate sodium (Colace) 100 mg PO DAILY PRN epinephrine IM DIRECTED methenamine hippurate 1 g PO BID midodrine 5 mg PO TID 90 days multivitamin 1 tab PO DAILY nebulizers As directed omega-3 fatty acids 500 mg PO DAILY peg 400-propylene glycol 0.4-0.3 % (Systane Gel) 1 drp ophthalmic (eye) BEDTIME 30 days quetiapine (Seroquel) 25 mg PO TID 90 days rituximab (Rituxan) IV [robu cushion As directed] sertraline 50 mg PO DAILY underpads As directed [wheelchair motorized with Roku cushion As directed] zinc gluconate 15 mg PO DAILY Tobacco use date assessed: 01/15/24 Fall risk assessment: No Falls in past year Last assessed Fall Risk: 01/15/24 Dental Screening Dental Screen Date: 01/15/24 Did you have a dental visit in the last 12 months?: Yes Did you have a dental problem in the last 6 months where you did not have access to dental care?: No Was dental information given to patient?: Patient has dentist HPI HPI Comments History of Present Illness Details This is a 63-year-old female with neuromyelitis, idiopathic hypotension, asthma-COPD overlap syndrome and mild depression that comes today for follow-up on her conditions. In an electric wheelchair due to her neuromyelitis. Has Rituxan every 6 months and this is follow by Neurology. Blood pressure stable with midodrine. On long-acting inhaler for her asthma-COPD overlap syndrome and use rescue inhaler less than once a month. On SSRIs for her depression. No chest pain or shortness of breath. Labs were discussed. 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 Decubitus ulcer, stage 4 Mild depression Wheelchair bound Hypovitaminosis D B12 deficiency Muscle spasm Idiopathic hypotension Neuromyelitis Surgical History Tracheostomy status Status post insertion of percutaneous endoscopic gastrostomy (PEG) tube History of lipoma Family History Father Diabetes Bone cancer Mother Diabetes Social History Housing: House Alcohol intake: never Patient Tobacco Use Status: Former Tobacco user Tobacco use type: Cigarette Years Smoked: 2 years e-Cigarette/Vaping Use: Never Used Second Hand Smoke Exposure: No service: No Current occupational status: disabled Cognitive needs: Yes Hearing needs: Yes Vision needs: Yes Questionnaire PHQ-9 Over the last 2 weeks, how often have you been bothered by any of the following problems? 1. Little interest or pleasure in doing things: not at all 2. Feeling down, depressed, or hopeless: several days 3. Trouble falling or staying asleep, or sleeping too much: more than half the days 4. Feeling tired or having little energy: more than half the days 5. Poor appetite or overeating: not at all 6. Feeling bad about yourself - or that you are a failure or have let yourself or your family down: not at all 7. Trouble concentrating on things, such as reading the newspaper or watching television: more than half the days 8. Moving or speaking so slowly that other people could have noticed. Or the opposite - being so fidgety or restless that you have been moving around a lot more than usual: not at all 9. Thoughts that you would be better off or of hurting yourself in some way: not at all Total score: 7 Depression Screening Interpretation: Positive Depression Screening Follow-up: Existing condition and In treatment Depression Screening Done: Yes 12812 - PHQ-9 Billing: Yes Source: Developed by Drs. Alek Gleason, Parul Snyder, Nick Godoy and colleagues, with an educational ankit from [employer]. Thrive Questionnaire Date Thrive assessed: 01/15/24 I am a: Patient What is your living situation today?: I have a steady place to live Within the past 12 months, did the food you bought not last and you didn't have the money to get more?: Never true Within the past 12 months, did you worry whether your food would run out before you got money to buy more?: Never true Do you have trouble paying for medicines?: No Do you have trouble getting transportation to medical appointments?: No Do you have trouble paying your heating and electricity bill?: No Do you have trouble taking care of your child, family member or friend?: No Do you have trouble with day-to-day activities such as bathing, preparing meals, shopping, managing finances, etc.?: No Are you currently unemployed and looking for a job?: No Are you interested in more education?: No Please select the resources that you would like help with: None Currently or been in a relationship where the following occur: no concerns reported THRIVE Score: 0 AUDIT C Alcohol Use Questionnaire (AUDIT-C) 1. How often do you have a drink containing alcohol?: Never 3. How often do you have six or more drinks on one occasion?: Never Total Score: 0 Score Reviewed/Action Taken: No DARINEL-7 AMB Questionnaire DARINEL-7 Date DARINEL - 7 assessed: 01/15/24 Feeling nervous, anxious, or on edge: 0 = Not at all Not being able to stop or control worryin = Not at all Worrying too much about different things: 0 = Not at all Trouble relaxin = Not at all Being so restless that it is hard to sit still: 0 = Not at all Becoming easily annoyed or irritable: 0 = Not at all Feeling afraid as if something awful might happen: 0 = Not at all Total DARINEL-7 score (0-4 normal; 5-9 mild; 10-14 moderate; 15-21 severe): 0 Source: Developed by Drs. Alek Gleason, Parul Snyder, Nick Godoy and colleagues, with an educational ankit from [employer]. DARINEL-7 Assessment Billing DARINEL-7 Assessment Tool: DARINEL-7 Assessment 17990 Review of Systems Const All systems reviewed & are unremarkable except as noted in HPI and below Eyes Reports no additional complaints, Denies change in vision and Denies other visual disturbances Card Denies chest pain at rest, Denies chest pain with activity, Denies edema, Denies irregular heart rhythm, Denies claudication, Denies dyspnea, Denies dyspnea on exertion, Denies orthopnea, Denies paroxysmal nocturnal dyspnea and Denies slow heart rate Resp Denies cough, Denies dyspnea and Denies dyspnea on exertion GI Denies abdominal pain, Denies change in bowel habits, Denies excessive flatus, Denies nausea and Denies vomiting Musc Reports limited range of motion and Reports stiffness Physical exam (Primary Care) Vital Signs: Last Vital Signs Pulse 102 H 01/15/24 14:10 BP 90/62 01/15/24 14:10 Pulse Ox 98 01/15/24 14:10 Oxygen Delivery Method Room Air 01/15/24 14:10 Tobacco/Smoking Status: Tobacco use Status Tobacco use date assessed 01/15/24 01/15/24 14:10 Patient Tobacco Use Status Former Tobacco user 01/15/24 14:10 Tobacco use type Cigarette 01/15/24 14:10 e-Cigarette/Vaping Use Never Used 01/15/24 14:10 PHQ-9: PHQ-9 Score PHQ-9: Total score 7 01/15/24 14:31 Depression Screening Interpretation: Positive Depression Screening Follow-up: Existing condition and In treatment Thrive Assessment: Date of Thrive Assessment Date Thrive assessed 01/15/24 01/15/24 14:10 Currently or been in a relationship where the following occur: no concerns reported Const Limitations: wheelchair Resp Effort & Inspection: normal respiratory effort Auscultation: clear to auscultation bilaterally Cardio Jugular venous distension: no JVD Rate: regular rate Rhythm: regular rhythm Heart sounds: S1 normal heart sound present and S2 normal heart sound present Neuro Other: paraplegia Assessment and Plan Assessment & Plan (1) Asthma-COPD overlap syndrome: Code(s): J44.9 - Chronic obstructive pulmonary disease, unspecified Plan: Continue long-acting inhaler. Use rescue inhaler as needed. Follow-up with pulmonology. (2) Mild depression: Code(s): F32.0 - Major depressive disorder, single episode, mild Plan: Continue sertraline. Continue Seroquel. (3) Neuromyelitis: Comment: Resulting in Neuromuscular disease Code(s): G36.9 - Acute disseminated demyelination, unspecified Plan: Continue Rituxan every 6 months. Continue fecal disimpaction daily. Follow-up with Neurology. (4) Idiopathic hypotension: Code(s): I95.0 - Idiopathic hypotension Plan: Continue midodrine. Keep blood pressure equal or above than 90/60. Orders: Orders Vitamin B6 Today E53.1 - Pyridoxine deficiency Magnesium Today E61.2 - Magnesium deficiency Vitamin B1 Today E51.9 - Thiamine deficiency, unspecified XR DEXA axial skeleton Today N95.9 - Unspecified menopausal and perimenopausal disorder Medications: Discontinued quetiapine Discontinued Reason: Patient Completed Course 25 mg PO BID 30 days 60 tabs 6RF Coding Level of Care Code Est Pt Level 4 (87779) Diagnoses Asthma-COPD overlap syndrome J44.9 Mild depression F32.0 Neuromyelitis G36.9 Idiopathic hypotension I95.0 Additional Codes DARINEL-7 Assessment Billing - DARINEL-7 Assessment Tool: DARINEL-7 Assessment 77759 ([id number]) Time Spent (min) 26
[2024-01-15 14:10] VITALS: BP 90/62; PULSE 102; O2SAT 98
== END 2024-01-15 15:03 | disposition home or self-care (01) ==
PROVIDERS: PCP Internal Medicine; Visit Provider Internal Medicine
DX: J44.9 Chronic obstructive pulmonary disease, unspecified (principal); G36.9 Acute disseminated demyelination, unspecified; F33.0 Major depressive disorder, recurrent, mild; I95.0 Idiopathic hypotension
CPT/HCPCS: 99214

== ENCOUNTER 2024-02-12 13:44 | Outpatient (REF) | payer MEDICARE, MEDICAID, SELFPAY ==
--- NOTE | ~2024-02-12 | MM_ITS ---
EXAMINATION: BONE DENSITOMETRY CLINICAL INDICATION: Menopause. COMPARISON: This is the patient's baseline examination. TECHNIQUE: Using a [employer] DXA System (software version: 13.1) manufactured by [employer], dual-energy x-ray absorptiometry was performed of the lumbar spine and left hip. The images are of good technical quality. Summary results are attached. FINDINGS: LEFT FEMUR, NECK: BMD 0.424 g/cm2, Z-score -3.1, T-score -4.4, osteoporosis. LEFT FEMUR, TOTAL: BMD 0.370 g/cm2, Z-score -4.0, T-score -5.1, osteoporosis. AP SPINE L1-L4: BMD 1.246 g/cm2, Z-score 1.9, T-score 0.6, normal. IDENTIFIED RISK FACTORS: Menopause, osteoporosis, rheumatoid arthritis, glucocorticoids (chronic). HISTORY OF FRACTURE: None listed. MEDICATIONS: Calcium, vitamin D. MM/XR DEXA axial skeleton IMPRESSION: 1. DIAGNOSIS: Osteoporosis based on the lowest T-score value of -5.1 in the total femur applying World Health Organization criteria. 2. 10-YEAR FRACTURE RISK PREDICTION, FRAX: According to the guidelines, FRAX calculation should only be performed on patients in the osteopenia bone density category. Therefore, FRAX was not performed on this patient. 3. Treatment Recommendations: NOF guidelines recommend consideration for treatment in postmenopausal women and men age 50 and older presenting with the following: -A hip or vertebral (clinical or morphometric) fracture. -T-score less than or equal to -2.5 at the femoral neck or spine after appropriate evaluation to exclude secondary causes. -Low bone mass at the hip or spine and a 10-year fracture probability by FRAX of greater than or equal to 3% for hip fracture or greater than or equal to 20% for major osteoporotic fracture based on the [place] adapted WHO algorithm. 4. Other Recommendations: All treatment decisions require clinical judgment and consideration of individual patient factors, including patient preferences, comorbidities, previous drug use, risk factors not captured in the FRAX model (e.g. frailty, falls, vitamin D deficiency, increased bone turnover, interval significant decline in bone density) and possible under or overestimation of fracture risk by FRAX. Additional medical evaluation for secondary cause of low bone mineral density may be appropriate. FUTURE SCAN RECOMMENDATION: People with diagnosed cases of osteoporosis or at high risk for fracture should have regular bone mineral density tests. For patients eligible for Medicare, routine testing is allowed once every 2 years. The testing frequency can be increased to one year for patients who have rapidly progressing disease, those who are receiving or discontinuing medical therapy to restore bone mass, or have additional risk factors.
[2024-02-17 15:04] LABS: Vitamin B1 23 nmol/L (8-30)
[2024-02-19 16:09] LABS: Vitamin B6 31.7 ng/mL (2.1-21.7)
== END 2024-02-12 13:45 | disposition home or self-care (01) ==
LOC: HO.MAMMO 13:44
PROVIDERS: PCP Internal Medicine; Visit Provider Internal Medicine
DX: E53.1 Pyridoxine deficiency (principal); E51.9 Thiamine deficiency, unspecified; E61.2 Magnesium deficiency; N95.9 Unspecified menopausal and perimenopausal disorder; Z13.820 Encounter for screening for osteoporosis
CPT/HCPCS: 36415; 77080; 83735; 84207; 84425

== ENCOUNTER 2024-03-17 14:02 | Outpatient (AMB) | payer MEDICARE, MEDICAID, SELFPAY ==
[2024-03-17 14:12] VITALS: PULSE 81; O2SAT 98; BMI 23.6
--- NOTE | 2024-03-17 14:12 | A.OFFVIS_ITS ---
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 Allergies blackberry Allergy (Severe, Verified 03/17/24 14:14) Rash and Hives lanolin Allergy (Severe, Verified 03/17/24 14:14) Rash and Hives latex [LATEX] Allergy (Severe, Verified 03/17/24 14:14) RASH Sulfa (Sulfonamide Antibiotics) [SULFA (SULFONAMIDE ANTIBIOTICS)] Allergy (Severe, Verified 03/17/24 14:14) JUANDICE tree nut [TREE NUT] Allergy (Severe, Verified 03/17/24 14:14) ANAPHYLAXIS rasberries Allergy (Severe, Uncoded 03/17/24 14:14) Rash and Hives Tetanus Allergy (Severe, Uncoded 03/17/24 14:14) Rash and Hives HPI Comments Details: The patient is a 63 y/o woman with 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 The patient is wheelchair-bound. Currently has a number [address] She is starting to have some neck irritation related to a small area of granulation tissue. This is because the trach tends to rubbing her skin since is loose. She understands that she has to keep it nice and firm to her skin to avoid movement. The patient continues to have episodes of shortness of breath. She has tried to go back on her ventilator for work of breathing, but does not tolerate it any longer. Due to her worsening symptoms, significant restrictive lung disease and decreased forced vital capacity the patient needs to be on noninvasive ventilatory therapy. Therefore, I will need to establish her on noninvasive therapy with sip and puff. She has continued to use the percussion vest with good effect for mucous secretions. At this point her tracheostomy is plugged. No plans for decannulation at this time. Will continue to monitor her progression of her neuromucolar disease. 06/03/2020 the patient has a telephone visit. Overall she is doing well from a respiratory status. After the closure of the tracheostomy she has had a stronger voice in a stronger cough per the patient. The patient has been sleeping well. She usually sleeps without any assistance. Although, she does have a noninvasive ventilator that she can use if she develops any worsening respiratory capacity. In the mornings she may use the sip and puff device to offer increase expansion of her lungs and also offer gas exchange. Patient also has a percussion vest that she uses for mucus clearance and pulmonary toilet. This time she is scheduled to undergo surgery for a decubital ulcer and placement of a flap. She is going to be admitted to [facility]. The patient does have increased risk for perioperative pulmonary complications due to her neuromuscular disease which include: Atelectasis, hypoxia, hypercarbia, pneumonia, and prolonged mechanical ventilation. 09/03/2020 the patient has a telephone visit today. Overall she is doing well. She was discharged from [facility] multiple weeks while recovering from her surgery. At home she has been doing well. She continues use her percussion vest. She uses that daily. She has not required a sip and puff. She still has chronic respiratory failure due to her neuromuscular disease. Therefore she needs to have the noninvasive ventilator to minimize hypercarbia and worsening respiratory failure. She has been doing well after the decannulation. She was wondering about the vaccine. I explained to her that we have to get more information. She is immunocompromised we have to wait for the safety recommendations from the FDA. Otherwise patient is without any other complaints. 12/16/2020 the patient has a telephone visit. Overall the patient has been doing relatively okay. She has been having increasing shortness of breath specially in the morning. She feels chest tightness. She does use her short- acting beta agonist with improvement in her shortness of breath. She does have a nebulizer that she uses well. In the meantime she has been using her noninvasive ventilator a little more at nighttime because of it. She is also using the sip and puff during the daytime. Sometimes she does have some issues with her mask. Recently [facility] sent over respiratory therapist and there were able to adjust her machine and her mask she was very appreciated. At this point will optimize her respiratory therapy to treat her for the obstructive airway component with both albuterol and budesonide. The meantime will reassess the patient in the next 6 weeks with a chest x-ray to make sure that she is improving. 01/21/2021 the patient has a telephone visit today. Overall the patient is doing well. Her shortness of breath has improved. She responded well to the albuterol with budesonide treatments. She has been using her noninvasive ventilator primarily to the sip and puff. This has been affecting beneficial. However, she gets very dry. I will talk to Moises by adding a humidifier so she can not tolerated better. In the meantime she does use a percussion vest for CPT with very good effect. She has not undergoing the chest x-ray as of yet. But she plans to do it when his safer for her to leave the house and go to a clinic or to a diagnostic center. If the patient is stable she can not wait to the next visit to have her x-ray prior to the visit otherwise she can have it done sooner. 03/03/2022 the patient is here for a pulmonary follow-up visit. Since we spoke the patient did develop COVID-19. The patient did have increased chest congestion. She was using the percussion vest with very good response. Sometimes she still had a hard time expectorating the phlegm that will get stuck in the middle of her chest and that was concerning to her . We did talk about considering a cough assist device. Specially if there is progressive worsening of her neuromuscular disease. She continues to follow closely by Neurology although that person may change. She has been on rituximab. I believe she is going to receive the next does coming up soon. The patient is sleeping well and she does not require any noninvasive therapy. Will have her undergo blood work including a venous gas to assess her CO2. 08/25/2022 the patient is here for a pulmonary follow-up visit. Overall the patient has been doing well. Her breathing has been back to her baseline. Denies any chest congestion. When she did have COVID at the patient was using the percussion vest more regularly. This has affecting beneficial. She was also using her nebulized therapy. Now she is back to her baseline. She is sleeping well. She is waking up rested. The patient did have a blood gas done back in the spring demonstrating normal pCO2. Plan to repeat the CO2 again in the spring. she is scheduled to have a repeat Rituxan does sometime in the next couple months. Will plan to have her undergo blood work including IgG level during her next visit to make sure that the rituximab is not resulting significant immunodeficiencies. 02/22/2023 the patient is here for a pulmonary follow-up visit. She continues to do well. Has not had any respiratory complaints. She has been performing the chest PT with percussion vest on a regular basis. She has been sleeping well without any oxygen. The patient's last blood gas was reassuring. She was supposed to have a blood gas this time around but clinically the patient is doing well and therefore we can hold off. She is getting her Rituxan every 6 months with good response. The only infections she has had from her condition is UTI so. She does have a catheter. Still however, no evidence of any significant immunodeficiency based on the Rituxan therapy. Will plan to follow- up in 8-12 months unless the patient develops any worsening symptoms. 03/17/2024 the patient is here for a pulmonary follow-up visit. She continues to do extremely well from a respiratory status. The Rituxan has been significantly helpful in holding any further decompensation from a respiratory status. She has been able to be off the ventilator. The patient also has a strong cough and is able to clear secretions on her own. She does want to get stronger. At this point will plan to request pulmonary function studies and she will be a great candidate for pulmonary rehabilitation to help her with her chronic restrictive lung disease for neuromuscular disease. In addition to that I did give the website that she can look for on the online rehab to look for additional resources. 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 Thigh shingles Vegetarian diet COVID-19 Diarrhea Edema of right foot Asthma-COPD overlap syndrome Breast pain, left Decubitus ulcer, stage 4 Mild depression Wheelchair bound Hypovitaminosis D B12 deficiency Muscle spasm Idiopathic hypotension Neuromyelitis Surgical History Tracheostomy status Status post insertion of percutaneous endoscopic gastrostomy (PEG) tube History of lipoma Family History Father Diabetes Bone cancer Mother Diabetes Social History Housing: House Alcohol intake: never Patient Tobacco Use Status: Former Tobacco user Tobacco use type: Cigarette Years Smoked: 2 years e-Cigarette/Vaping Use: Never Used Second Hand Smoke Exposure: No service: No Current occupational status: disabled Cognitive needs: Yes Hearing needs: Yes Vision needs: Yes Review of Systems Const Denies difficulty sleeping and Reports weakness Eyes Reports no additional complaints, Denies change in vision and Denies other visual disturbances ENT Denies change in voice Card Denies chest pain at rest, Denies chest pain with activity, Denies edema, Denies irregular heart rhythm, Denies claudication, Denies dyspnea, Denies dyspnea on exertion, Denies orthopnea, Denies paroxysmal nocturnal dyspnea and Denies slow heart rate Resp Denies cough, Denies dyspnea and Denies dyspnea on exertion GI Denies abdominal pain, Denies change in bowel habits, Denies excessive flatus, Denies nausea and Denies vomiting Reports as per HPI Musc Reports abnormal gait, Reports atrophy, Reports limited range of motion, Reports muscle cramps and Reports muscle weakness Skin/Breast Denies bleeding lesions, Denies changing lesions and Denies rash Neuro Reports as per HPI, Reports abnormal gait, Denies behavioral changes, Denies lack of coordination, Reports weakness and Reports other (wheelchair) Psych Denies behavioral changes Endo Denies cold intolerance Romeo/Lymph Denies easy bleeding and Denies easy bruising Aller/Immun Denies urticaria Physical Exam Vital Signs: Last Vital Signs Pulse 81 03/17/24 14:12 Pulse Ox 98 03/17/24 14:12 Oxygen Delivery Method Room Air 03/17/24 14:12 BMI result Body Mass Index 23.6 Quality Reporting (2019) Adult ([facility] 138/11/15/68) Smoking risk assessment performed?: Yes Patient Tobacco Use Status: Former Tobacco user Assessment & Plan Assessment & Plan (1) Chronic respiratory failure: Code(s): J96.10 - Chronic respiratory failure, unspecified whether with hypoxia or hypercapnia Category: Medical Qualifiers: Respiratory failure complication: hypercapnia Qualified Code(s): J96.12 - Chronic respiratory failure with hypercapnia (2) Neuromyelitis: Comment: Resulting in Neuromuscular disease Code(s): G36.9 - Acute disseminated demyelination, unspecified Category: Medical (3) 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: Code(s): J98.4 - Other disorders of lung; G71.00 - Muscular dystrophy, unspecified Category: Medical (4) Asthma-COPD overlap syndrome: Code(s): J44.9 - Chronic obstructive pulmonary disease, unspecified Category: Medical Plan Continue nebulized therapy twice a day CPT with percussion vest PFTs start Pulmonary rehab F/U 8-12 months or sooner if any worsening symptoms Orders: Orders Pulmonary Rehab Today G71.00 - Muscular dystrophy, unspecified, J44.9 - Chronic obstructive pulmonary disease, unspecified, J98.4 - Other disorders of lung PFT pulmonary function test Today G71.00 - Muscular dystrophy, unspecified, J44.9 - Chronic obstructive pulmonary disease, unspecified, J98.4 - Other disorders of lung Coding Level of Care Code Est Pt Level 4 (71087) Diagnoses Chronic respiratory failure with hypercapnia J96.12 Respiratory failure complication: hypercapnia Neuromyelitis G36.9 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
== END 2024-03-17 14:36 | disposition home or self-care (01) ==
PROVIDERS: PCP Internal Medicine; Visit Provider Hospitalist
DX: J96.12 Chronic respiratory failure with hypercapnia (principal); G36.9 Acute disseminated demyelination, unspecified; J98.4 Other disorders of lung; G71.00 Muscular dystrophy, unspecified; J44.9 Chronic obstructive pulmonary disease, unspecified
CPT/HCPCS: 99214

== ENCOUNTER → 2024-03-17 14:02 | Outpatient (BNVA) | payer MEDICARE, MEDICAID, SELFPAY | PROVIDERS: PCP Internal Medicine; Visit Provider Hospitalist | DX: J44.9 Chronic obstructive pulmonary disease, unspecified (principal); J96.12 Chronic respiratory failure with hypercapnia; G36.9 Acute disseminated demyelination, unspecified; J98.4 Other disorders of lung; G71.00 Muscular dystrophy, unspecified | CPT/HCPCS: 99212 ==

== ENCOUNTER 2024-04-19 13:45 | Outpatient (REF) | payer MEDICARE, MEDICAID, SELFPAY ==
[2024-04-19 11:10] VITALS: PULSE 73; RESP 16; O2SAT 97
--- NOTE | 2024-04-19 13:50 | PFT_ITS ---
Flows: FEV1: 79 % of predicted at 1.81 L FVC: 81 % of predicted at 2.36 L FEV1/FVC: 77 % Bronchodilator response: Absent Volumes: Total lung capacity: 92 % of predicted at 4.63 L Residual volume: 120 % of predicted at 2.28 L Slow vital capacity: 76 % of predicted at 2.36 L Expiratory reserve volume: 42 % of predicted at 0.31 L Diffusion capacity: Normal Impression: No obstructive or restrictive ventilatory defect. No bronchodilator response. Decreased expiratory reserve volume suggests extrathoracic restriction likely secondary to abdominal obesity. MTDD
== END 2024-04-19 13:46 | disposition home or self-care (01) ==
LOC: HO.RESP 13:45
PROVIDERS: PCP Internal Medicine; Visit Provider Hospitalist
DX: J44.9 Chronic obstructive pulmonary disease, unspecified (principal); J98.4 Other disorders of lung; G71.00 Muscular dystrophy, unspecified
CPT/HCPCS: 94010; 94640; 94727; 94729

== ENCOUNTER 2024-06-17 12:39 | Outpatient (AMB) | payer MEDICARE, MEDICAID, SELFPAY ==
--- NOTE | 2024-06-17 12:46 | A.OFFVIS_ITS ---
Vital Signs 06/17/24 12:51 Height 5 ft 8 in BMI Reason not done Patient refused/unable BP 96/62 Blood Pressure Location Rt brachial Position Sitting Pulse 91 Pulse Source Pulse Oximeter Pulse Oximetry (%) 98 Oxygen Delivery Method Room Air Intake Visit Reasons: Osteoporosis cyndie sandoval Intake Note: Patient presents for Osteoporosis. Allergies blackberry Allergy (Severe, Verified 06/17/24 12:50) Rash and Hives lanolin Allergy (Severe, Verified 06/17/24 12:50) Rash and Hives latex [LATEX] Allergy (Severe, Verified 06/17/24 12:50) RASH Sulfa (Sulfonamide Antibiotics) [SULFA (SULFONAMIDE ANTIBIOTICS)] Allergy (Severe, Verified 06/17/24 12:50) JUANDICE tree nut [TREE NUT] Allergy (Severe, Verified 06/17/24 12:50) ANAPHYLAXIS rasberries Allergy (Severe, Uncoded 03/17/24 14:14) Rash and Hives Tetanus Allergy (Severe, Uncoded 03/17/24 14:14) Rash and Hives Medication List - Last Reconciled 06/17/24 by Иван Sandoval MD albuterol sulfate 90 mcg/actuation 2 puffs inhalation Q6H PRN albuterol sulfate 1.25 mg (3 mL) inhalation QID baclofen 10 mg PO TID biotin 5 mg PO DAILY budesonide 0.25 mg (2 mL) inhalation DAILY 30 days cholecalciferol (vitamin D3) 50 mcg PO DAILY [id number] [phone] [id number]-mg tabs PO diaper,brief,adult,disposable Size large disposable gloves As directed docusate sodium (Colace) 100 mg PO DAILY PRN doxycycline monohydrate 100 mg PO BID 14 days epinephrine IM DIRECTED loperamide 2 mg PO Q6H PRN 3 days methenamine hippurate 1 g PO BID midodrine 5 mg PO TID 90 days multivitamin 1 tab PO DAILY nebulizers As directed omega-3 fatty acids 500 mg PO DAILY peg 400-propylene glycol 0.4-0.3 % (Systane Gel) 1 drp ophthalmic (eye) BEDTIME 30 days quetiapine (Seroquel) 25 mg PO TID 90 days rituximab (Rituxan) IV [jerou cushkeanu As directed] sertraline 50 mg PO DAILY underpads As directed [wheelchair motorized with Roku cushion As directed] zinc gluconate 15 mg PO DAILY HPI Comments Details: This is a 63-year-old female with neuromuscular dystrophy, wheelchair-bound, neuromyelitis optica, s/p tracheostomy, ventilator dependent, now off the ventilator. Who presents for evaluation of osteoporosis. Patient was diagnosed with her neuromuscular disease in her 40s. From chart review I gather that she is treated with rituximab for her neuromuscular disorder. She is wheelchair- bound. She was found to have significant osteoporosis on her bone density scan. She also states that she was diagnosed with Sjogren's by her PCP based on dry eyes and dry mouth. She uses artificial tears twice a day and does not have any specific treatment for dry mouth. 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 Thigh shingles Vegetarian diet COVID-19 Diarrhea Edema of right foot Asthma-COPD overlap syndrome Breast pain, left Decubitus ulcer, stage 4 Mild depression Wheelchair bound Hypovitaminosis D B12 deficiency Muscle spasm Idiopathic hypotension Neuromyelitis Surgical History Tracheostomy status Status post insertion of percutaneous endoscopic gastrostomy (PEG) tube History of lipoma Family History Father Diabetes Bone cancer Mother Diabetes Social History Housing: House Alcohol intake: never Patient Tobacco Use Status: Former Tobacco user Tobacco use type: Cigarette Years Smoked: 2 years e-Cigarette/Vaping Use: Never Used Second Hand Smoke Exposure: No service: No Current occupational status: disabled Cognitive needs: Yes Hearing needs: Yes Vision needs: Yes Review of Systems Eyes Reports dry eyes ENT Reports dry mouth Musc Denies arthralgias Physical Exam Vital Signs: Last Vital Signs Pulse 91 06/17/24 12:51 BP 96/62 06/17/24 12:51 Pulse Ox 98 06/17/24 12:51 Oxygen Delivery Method Room Air 06/17/24 12:51 Const General: cooperative, healthy appearing and comfortable Orientation/consciousness: patient oriented x3 Limitations: wheelchair HEENT Head: Yes normocephalic and Yes atraumatic Face and sinus: Yes dry mucous membranes Mouth: oropharynx normal Resp Effort & Inspection: normal respiratory effort and able to speak in complete sentences Cardio Rate: regular rate Skin General skin exam: no rashes or lesions noted Neuro General: patient oriented x3 Extrem Other: Mild flexion contracture of her left hand fingers Mild spasticity of her arm muscles No active synovitis Significant weakness of her lower extremity Quality Reporting (2019) Adult ([facility] 138/11/15/68) Smoking risk assessment performed?: Yes Patient Tobacco Use Status: Former Tobacco user Assessment & Plan Assessment & Plan (1) Osteoporosis: Code(s): M81.0 - Age-related osteoporosis without current pathological fracture Category: Medical Qualifiers: Osteoporosis type: age-related Presence of current pathological fracture: without current pathological fracture Qualified Code(s): M81.0 - Age- related osteoporosis without current pathological fracture Plan: This is a 63-year-old female with neuromuscular disorder, neuromyelitis optica, wheelchair-bound who presents for evaluation of osteoporosis. She denies history of fractures. Her osteoporosis is likely due to intermittent courses of steroids in addition to being wheelchair-bound. However I will order blood work to rule out any secondary causes of osteoporosis. Discussed different treatment options for osteoporosis. Patient will into them. Follow-up in 4-5 weeks (2) Sjogrens syndrome: Code(s): M35.00 - Sjogren syndrome, unspecified Category: Medical Qualifiers: Sjogren organ or system involvement: keratoconjunctivitis Qualified Code(s): M35.01 - Sjogren syndrome with keratoconjunctivitis Plan: States that she was diagnosed with Sjogren's based on dry eyes and dry mouth by her PCP years ago. She uses artificial tears twice a day and has dry mouth. Discussed Biotene mouthwash, Biotene spray, consider Biotene toothpaste Patient is not interested in the car pain at this time I will order comprehensive serology to better understand her underlying autoimmune illness Plan I spent 48 minutes reviewing patient's chart, evaluating patient, ordering diagnostic workup, counseling patient and documenting in the chart Orders: Orders Complete Blood Count Auto Diff Today M32.9 - Systemic lupus erythematosus, unspecified Erythrocyte Sedimentation Rate Today M32.9 - Systemic lupus erythematosus, un specified RICKI Reflex Titer and Pattern Today M32.9 - Systemic lupus erythematosus, unspecified Anti DNA DS Antibody Today M32.9 - Systemic lupus erythematosus, unspecified DNA Double Stranded-Crithidia Today M32.9 - Systemic lupus erythematosus, unspecified Sjogren's Antibodies Today M32.9 - Systemic lupus erythematosus, unspecified Parathyroid Hormone Intact Today M81.0 - Age-related osteoporosis without current pathological fracture Vitamin D 25-OH Total Today E55.9 - Vitamin D deficiency, unspecified Phosphorus Today M81.0 - Age-related osteoporosis without current pathological fracture Comprehensive Met. Panel Today M32.9 - Systemic lupus erythematosus, unspecified C Reactive Protein Today M32.9 - Systemic lupus erythematosus, unspecified Hepatitis A,B,C Profile Today Z11.59 - Encounter for screening for other viral diseases Immunofixation Pnl, Serum Today M32.9 - Systemic lupus erythematosus, unspecified Protein Electrophoresis, Serum Today M32.9 - Systemic lupus erythematosus, unspecified T Spot TB Today Z11.7 - Encounter for testing for latent tuberculosis infection Anti Extractable Nuclear Ag Today M32.9 - Systemic lupus erythematosus, unspecified Complement C3 Today M32.9 - Systemic lupus erythematosus, unspecified Complement C4 Today M32.9 - Systemic lupus erythematosus, unspecified Rheumatoid Factor Today M06.9 - Rheumatoid arthritis, unspecified Cyclic Citrullinated Peptide Today M06.9 - Rheumatoid arthritis, unspecified Collagen Type I C-Telopeptide Today M81.0 - Age-related osteoporosis without current pathological fracture TSH reflex Free T4 Today M81.0 - Age-related osteoporosis without current pathological fracture Coding Level of Care Code New Pt Level 4 (09368) Diagnoses Age-related osteoporosis without current pathological fracture M81.0 Osteoporosis type: age-related Presence of current pathological fracture: without current pathological fracture Sjogren's syndrome with keratoconjunctivitis sicca M35.01 Sjogren organ or system involvement: keratoconjunctivitis
[2024-06-17 12:51] VITALS: BP 96/62; PULSE 91; O2SAT 98
== END 2024-06-17 13:34 | disposition home or self-care (01) ==
PROVIDERS: PCP Internal Medicine; Visit Provider Student in an Organized Health Care Education/Training Program
DX: M81.0 Age-related osteoporosis without current pathological fracture (principal); M35.01 Sjogren syndrome with keratoconjunctivitis
CPT/HCPCS: 99204

== ENCOUNTER 2024-06-17 12:39 | Outpatient (REF) | payer MEDICARE, BC, MEDICAID, SELFPAY ==
[2024-06-17 14:36] LABS: MANUAL DIFF FLAG NO
[2024-06-17 15:52] LABS: Basophils Percent Auto 0.7 % (0-2); Eosinophils Absolute Auto 0.2 X10*3/uL (0.0-0.4); Eosinophils Percent Auto 4.2 % (0-4); Hematocrit 46.4 % (37.0-47.0); Hemoglobin 14.9 g/dl (12.0-16.0); Imm Gran Abs Auto 0.03 X10*3/uL (0.00-0.03); Imm Gran Pct Auto 0.5 % (0.0-0.4); Lymphocytes Absolute Auto 1.1 X10*3/uL (1.2-4.9); Lymphocytes Percent Auto 18.5 % (20-40); Mean Corpuscular HGB Conc 32.1 g/dl (31.0-35.0); Mean Corpuscular Hemoglobin 29.9 pg (27.0-33.0); Monocytes Absolute Auto 0.5 X10*3/uL (0.1-1.2); Monocytes Percent Auto 8.8 % (2-11); Neutrophils Absolute Auto 3.9 x10*3/uL (2.0-8.3); Neutrophils Percent Auto 67.3 % (45-73); Platelet Count 221 X10*3/uL (160-400); Red Blood Count 4.99 X10*6/uL (4.20-5.50); Red Cell Distribution Width 13.9 % (11.0-16.0); White Blood Count 5.8 X10*3/uL (4.8-10.8)
[2024-06-17 16:58] LABS: Erythrocyte Sedimentation Rate 13 MM/HR (0-20)
[2024-06-17 17:14] LABS: Parathyroid Hormone Intact 81.4 pg/mL (8.7-77.1)
[2024-06-17 17:44] LABS: Rheumatoid Factor < 13.0 IU/mL (<15.0)
[2024-06-17 18:34] LABS: Alanine Aminotransferase 18 U/L (0-31); Albumin Level 3.8 g/dL (3.5-5.0); Alkaline Phosphatase 106 U/L (39-117); Anion Gap 11 (12-20); Aspartate Amino Transferase 12 U/L (5-31); Bilirubin Total 0.4 mg/dL (0.0-1.0); Blood Urea Nitrogen 11 mg/dL (9-16); C Reactive Protein 0.69 mg/dL (< or = 0.50); Calcium 9.7 mg/dL (8.4-10.2); Carbon Dioxide 24 mmol/L (22-29); Chloride 109 mmol/L (96-108); Estimated Glomerular Filt Rate > 60; Glucose Random 113 mg/dL (60-115); Phosphorus 2.3 mg/dL (2.7-4.5); Potassium 4.2 mmol/L (3.3-5.1); Sodium 140 mmol/L (135-145); Total Protein 7.2 g/dL (6.5-8.0); Vitamin D 25-OH Total 55.5 ng/mL (>30)
[2024-06-18 08:36] LABS: HBS Num1 0.38 mIU/mL (0-7.99); HBsAGNum1 0.28 S/CO (0.00-0.99); Hepatitis A Antibody IgM 0.12 Index (0-0.79); Hepatitis B Core Antibody Nonreactive (Nonreactive); Hepatitis B Surface Antigen Negative (Negative); ~HepC Num1 0.05 S/CO (0.00-0.79); ~Hepatitis A Antibody IgM Nonreactive (Nonreactive); ~Hepatitis B Surface Antibody NONREACTIVE (Nonreactive); ~Hepatitis C Antibody Nonreactive (Nonreactive)
[2024-06-18 14:18] LABS: Anti DNA DS Antibody <1 IU/mL; Antibody to SS-A Antigen <1.0 NEG AI (<1.0 NEG); Antibody to SS-B Antigen <1.0 NEG AI (<1.0 NEG); SM/Ribonucleoprotein Ab <1.0 NEG AI (<1.0 NEG); Smith Protein <1.0 NEG AI (<1.0 NEG)
[2024-06-19 06:24] LABS: Cyclic Citrullinated Peptide <16 UNITS
[2024-06-19 09:44] LABS: Complement C3 132 mg/dL (83-193)
[2024-06-19 11:29] LABS: Anti Nuclear Antibody Screen NEGATIVE (NEGATIVE)
[2024-06-20 09:48] LABS: Prot Elec - Albumin 4.2 g/dL (3.8-4.8); Prot Elec - Alpha1 0.3 g/dL (0.2-0.3); Prot Elec - Alpha2 0.7 g/dL (0.5-0.9); Prot Elec - Beta 1 0.4 g/dL (0.4-0.6); Prot Elec - Beta 2 0.4 g/dL (0.2-0.5)
[2024-06-20 16:12] LABS: TS Negative Control Passed; TS Panel A 0; TS Panel B 0; TS Positive Control Passed; TSpotTB Negative (Negative)
[2024-06-20 18:38] LABS: IgA 377 mg/dL (70-320); IgG 1160 mg/dL (600-1540); IgM 12 mg/dL (50-300)
[2024-06-22 14:34] LABS: DNAds, Crithidia Antibody Negative (Negative)
== END 2024-06-17 12:40 | disposition home or self-care (01) ==
LOC: HO.LAB 12:39
PROVIDERS: PCP Internal Medicine; Visit Provider Student in an Organized Health Care Education/Training Program
DX: M32.9 Systemic lupus erythematosus, unspecified (principal); M81.0 Age-related osteoporosis without current pathological fracture; M06.9 Rheumatoid arthritis, unspecified; E55.9 Vitamin D deficiency, unspecified; Z11.59 Encounter for screening for other viral diseases; Z11.7 Encounter for testing for latent tuberculosis infection; M35.01 Sjogren syndrome with keratoconjunctivitis
CPT/HCPCS: 36415; 80053; 82306; 82784; 83970; 84100; 84165; 84443; 85025; 85652; 86038; 86140; 86160; 86200; 86225; 86235; 86255; 86334; 86431; 86481; 86704; 86706; 86709; 86803; 87340; 99202

== ENCOUNTER 2024-06-27 14:41 | Outpatient (REF) | payer MEDICARE, MEDICAID, SELFPAY ==
[2024-07-02 16:08] LABS: Collagen Type I C-Telopeptide 367 pg/mL (see note)
== END 2024-06-27 14:42 | disposition home or self-care (01) ==
LOC: HO.LAB 14:41
PROVIDERS: PCP Internal Medicine; Visit Provider Student in an Organized Health Care Education/Training Program
DX: M81.0 Age-related osteoporosis without current pathological fracture (principal)
CPT/HCPCS: 36415; 82523

== ENCOUNTER 2024-07-15 14:25 | Outpatient (AMB) | payer MEDICARE, MEDICAID, SELFPAY ==
[2024-07-15 14:36] VITALS: BP 110/80
--- NOTE | 2024-07-15 14:36 | MHC.PC.OV ---
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: No Accompanied by: Self / Same As Patient Allergies blackberry Allergy (Severe, Verified 07/15/24 14:53) Rash and Hives lanolin Allergy (Severe, Verified 07/15/24 14:53) Rash and Hives latex [LATEX] Allergy (Severe, Verified 07/15/24 14:53) RASH Sulfa (Sulfonamide Antibiotics) [SULFA (SULFONAMIDE ANTIBIOTICS)] Allergy (Severe, Verified 07/15/24 14:53) JUANDICE tree nut [TREE NUT] Allergy (Severe, Verified 07/15/24 14:53) ANAPHYLAXIS rasberries Allergy (Severe, Uncoded 07/15/24 14:53) Rash and Hives Tetanus Allergy (Severe, Uncoded 07/15/24 14:53) Rash and Hives Medication List - Last Reconciled 07/15/24 by Parul Sexton MD albuterol sulfate 90 mcg/actuation 2 puffs inhalation Q6H PRN albuterol sulfate 1.25 mg (3 mL) inhalation QID ascorbate calcium (vitamin C) 500 mg PO DAILY baclofen 10 mg PO TID baclofen 20 mg PO BEDTIME cholecalciferol (vitamin D3) 50 mcg PO DAILY fgyecxypi-Gm-rubzr-mushroomcmb [id number] hy-scw-uy-mg tabs PO diaper,brief,adult,disposable Size large disposable gloves As directed epinephrine IM DIRECTED magnesium gluconate 30 mg PO DAILY methenamine hippurate 1 g PO BID multivitamin 1 tab PO DAILY nebulizers As directed omega-3 fatty acids 500 mg PO DAILY peg 400-propylene glycol 0.4-0.3 % (Systane Gel) 1 drp ophthalmic (eye) BEDTIME 30 days quetiapine (Seroquel) 25 mg PO TID 90 days rituximab (Rituxan) IV [robu cushion As directed] sertraline 50 mg PO DAILY underpads As directed [wheelchair motorized with Roku cushion As directed] zinc gluconate 15 mg PO DAILY Tobacco use date assessed: 01/15/24 Fall risk assessment: No Falls in past year Last assessed Fall Risk: 07/15/24 Dental Screening Dental Screen Date: 07/15/24 Did you have a dental visit in the last 12 months?: Yes Did you have a dental problem in the last 6 months where you did not have access to dental care?: No Was dental information given to patient?: Patient has dentist HPI HPI Comments History of Present Illness Details This is a 63-year-old female with asthma-COPD overlap syndrome, neuromyelitis, 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 She is in a wheelchair for over 10 years due to her neuromyelitis. Mammogram done 2023. DEXA scan done 2023 showing osteoporosis and this is follow by Rheumatology. Asthma-COPD overlap syndrome and restrictive lung disease are follow by pulmonology and has been stable. On Rituxan every 6 months for neuromyelitis which is follow by Neurology. She complains of dry eyes and dry mouth due to Sjogren's. Mild depression stable. Urine catheterization happens every 3 weeks. Colonoscopy was done less than 10 years ago at [facility] and was normal. [facility] Medical History (Updated 07/15/24 @ 16:58 by Parul Sexton MD) 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 Thigh shingles Vegetarian diet COVID-19 Diarrhea Edema of right foot Asthma-COPD overlap syndrome Breast pain, left Decubitus ulcer, stage 4 Mild depression Wheelchair bound Hypovitaminosis D B12 deficiency Muscle spasm Idiopathic hypotension Neuromyelitis Surgical History Tracheostomy status Status post insertion of percutaneous endoscopic gastrostomy (PEG) tube History of lipoma Family History Father Diabetes Bone cancer Mother Diabetes Social History Housing: House Alcohol intake: never Patient Tobacco Use Status: Former Tobacco user Tobacco use type: Cigarette Years Smoked: 2 years e-Cigarette/Vaping Use: Never Used Second Hand Smoke Exposure: No service: No Current occupational status: disabled Cognitive needs: Yes Hearing needs: Yes Vision needs: Yes Questionnaire PHQ-9 Over the last 2 weeks, how often have you been bothered by any of the following problems? 1. Little interest or pleasure in doing things: not at all 2. Feeling down, depressed, or hopeless: not at all 3. Trouble falling or staying asleep, or sleeping too much: not at all 4. Feeling tired or having little energy: not at all 5. Poor appetite or overeating: not at all 6. Feeling bad about yourself - or that you are a failure or have let yourself or your family down: not at all 7. Trouble concentrating on things, such as reading the newspaper or watching television: not at all 8. Moving or speaking so slowly that other people could have noticed. Or the opposite - being so fidgety or restless that you have been moving around a lot more than usual: not at all 9. Thoughts that you would be better off or of hurting yourself in some way: not at all Total score: 0 Depression Screening Interpretation: Negative Depression Screening Done: Yes 75833 - PHQ-9 Billing: Yes Source: Developed by Drs. Alek Gleason, Parul Snyder, Nick Godoy and colleagues, with an educational ankit from [employer]. Thrive Questionnaire Date Thrive assessed: 07/13/24 I am a: Patient What is your living situation today?: I have a steady place to live Within the past 12 months, did the food you bought not last and you didn't have the money to get more?: Never true Within the past 12 months, did you worry whether your food would run out before you got money to buy more?: Never true Do you have trouble paying for medicines?: No Do you have trouble getting transportation to medical appointments?: No Do you have trouble paying your heating and electricity bill?: No Do you have trouble taking care of your child, family member or friend?: No Do you have trouble with day-to-day activities such as bathing, preparing meals, shopping, managing finances, etc.?: No Are you currently unemployed and looking for a job?: No Are you interested in more education?: No Please select the resources that you would like help with: None Currently or been in a relationship where the following occur: No concerns reported THRIVE Score: 0 AUDIT C Alcohol Use Questionnaire (AUDIT-C) 1. How often do you have a drink containing alcohol?: Never Total Score: 0 Score Reviewed/Action Taken: No DARINEL-7 AMB Questionnaire DARINEL-7 Date DARINEL - 7 assessed: 01/15/24 Feeling nervous, anxious, or on edge: 0 = Not at all Not being able to stop or control worryin = Not at all Worrying too much about different things: 0 = Not at all Trouble relaxin = Not at all Being so restless that it is hard to sit still: 0 = Not at all Becoming easily annoyed or irritable: 0 = Not at all Feeling afraid as if something awful might happen: 0 = Not at all Total DARINEL-7 score (0-4 normal; 5-9 mild; 10-14 moderate; 15-21 severe): 0 Source: Developed by Drs. Alek Gleason, Parul Snyder, Nick Godoy and colleagues, with an educational ankit from [employer]. DARINEL-7 Assessment Billing DARINEL-7 Assessment Tool: DARINEL-7 Assessment 57334 Review of Systems Const All systems reviewed & are unremarkable except as noted in HPI and below Card Denies chest pain at rest, Denies chest pain with activity, Denies edema, Denies irregular heart rhythm, Denies claudication, Denies dyspnea, Denies dyspnea on exertion, Denies orthopnea, Denies paroxysmal nocturnal dyspnea and Denies slow heart rate Resp Denies cough, Denies dyspnea and Denies dyspnea on exertion GI Denies abdominal pain, Denies change in bowel habits, Denies excessive flatus, Denies nausea and Denies vomiting Physical exam (Primary Care) Vital Signs: Last Vital Signs BP 110/80 07/15/24 14:36 Tobacco/Smoking Status: Tobacco use Status Tobacco use date assessed 01/15/24 07/15/24 14:42 Patient Tobacco Use Status Former Tobacco user 07/15/24 14:42 Tobacco use type Cigarette 07/15/24 14:42 e-Cigarette/Vaping Use Never Used 07/15/24 14:42 PHQ-9: PHQ-9 Score PHQ-9: Total score 0 07/15/24 15:32 Depression Screening Interpretation: Negative Thrive Assessment: Date of Thrive Assessment Date Thrive assessed 07/13/24 07/15/24 14:42 Currently or been in a relationship where the following occur: No concerns reported Const General: cooperative Limitations: wheelchair HENMT Head: Yes normal to inspection, Yes normocephalic and Yes atraumatic Ears: external ears normal Eyes General: appearance normal, both eyes and all related structures Eyelids: Yes eyelids normal Conjunctivae: conjunctivae normal Neck Neck: Yes normal visual inspection and Yes supple Resp Effort & Inspection: normal respiratory effort Auscultation: clear to auscultation bilaterally Cardio Jugular venous distension: no JVD Rate: regular rate Rhythm: regular rhythm Heart sounds: S1 normal heart sound present and S2 normal heart sound present GI Inspection: Yes normal to inspection Palpation (GI): Soft to palpation and nontender Auscultation: normal bowel sounds Skin General skin exam: no rashes or lesions noted Psych Appearance: grossly normal Office Procedures Flu Questionnaire Does the patient have a severe egg allergy?: No Does the patient have severe life threatening allergies?: No Does the patient have a fever or illness today?: No Has the patient ever had Guillain-Jbphh Syndrome?: No Has the patient ever had any past reaction to a flu shot?: No Immunizations Fluarix Triv 4809-5455 (PF) 45 mcg (15 mcg x 3)/0.5 mL IM syringe Performing Provider: Parlu Sexton MD [facility] [place] [facility] Administered by: HALI Colunga on 07/15/24 14:43 Dose Route Admin Location Dispensed Lot Number Expiration Date [employer]s Specialist 0.5 mL IM Left Deltoid 0.5 mL [id number] 03/23/25 [id number] [facility] VIS Given Date VIS Provided VIS Publication Date 07/15/24 Single Vaccine 21 Eligibility Eligibility Date Funding Source Not [facility] [employer] Eligible 07/15/24 Private Coding Level of Care Code Est Pt Prev Care 40-64y(15402) Diagnoses Physical exam Z00.00 Sjogren's syndrome with keratoconjunctivitis sicca M35.01 Sjogren organ or system involvement: keratoconjunctivitis 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 J98.4; G71.00 Mild depression F32.0 Neuromyelitis G36.9 Asthma-COPD overlap syndrome J44.9 Additional Codes DARINEL-7 Assessment Billing - DARINEL-7 Assessment Tool: DARINEL-7 Assessment 29911 ([id number]) Time Spent (min) 31 Assessment & Plan Assessment & Plan (1) Physical exam: Code(s): Z00.00 - Encounter for general adult medical examination without abnormal findings Category: Medical Plan: Repeat in a year. (2) Sjogrens syndrome: Code(s): M35.00 - Sjogren syndrome, unspecified Category: Medical Qualifiers: Sjogren organ or system involvement: keratoconjunctivitis Qualified Code(s): M35.01 - Sjogren syndrome with keratoconjunctivitis Plan: Advised to use artificial tears as needed and drink water or chewing gum. (3) 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: Code(s): J98.4 - Other disorders of lung; G71.00 - Muscular dystrophy, unspecified Category: Medical Plan: Follow-up with pulmonology. (4) Mild depression: Code(s): F32.0 - Major depressive disorder, single episode, mild Category: Medical Plan: Advised meditation therapy. (5) Neuromyelitis: Comment: Resulting in Neuromuscular disease Code(s): G36.9 - Acute disseminated demyelination, unspecified Category: Medical Plan: Continue Rituxan every 6 months. Follow-up with Neurology. (6) Asthma-COPD overlap syndrome: Code(s): J44.9 - Chronic obstructive pulmonary disease, unspecified Category: Medical Plan: Use rescue inhaler as needed. Follow-up with pulmonology. Orders: Orders Influenza [id number] Immunization Today Z23 - Encounter for immunization Phosphorus Urine Random Today E83.39 - Other disorders of phosphorus metabolism
== END 2024-07-15 15:43 | disposition home or self-care (01) ==
PROVIDERS: PCP Internal Medicine; Visit Provider Internal Medicine
DX: Z00.00 Encounter for general adult medical examination without abnormal findings (principal); M35.01 Sjogren syndrome with keratoconjunctivitis; G71.00 Muscular dystrophy, unspecified; F32.0 Major depressive disorder, single episode, mild; G36.9 Acute disseminated demyelination, unspecified; J44.9 Chronic obstructive pulmonary disease, unspecified; J98.4 Other disorders of lung

== ENCOUNTER → 2024-07-15 14:25 | Outpatient (BNVA) | payer MEDICARE, MEDICAID, SELFPAY | PROVIDERS: PCP Internal Medicine; Visit Provider Internal Medicine | DX: Z00.01 Encounter for general adult medical examination with abnormal findings (principal); L89.152 Pressure ulcer of sacral region, stage 2; M35.01 Sjogren syndrome with keratoconjunctivitis; J98.4 Other disorders of lung; G71.00 Muscular dystrophy, unspecified; F32.0 Major depressive disorder, single episode, mild; G36.9 Acute disseminated demyelination, unspecified; J44.9 Chronic obstructive pulmonary disease, unspecified; Z23 Encounter for immunization | CPT/HCPCS: 90471; 90656; 96127; 99396 ==

== ENCOUNTER 2024-07-19 16:19 | Outpatient (REF) | payer MEDICARE, MEDICAID, SELFPAY ==
[2024-07-19 16:57] LABS: Phosphorus Urine Random 12.5 mg/dL
== END 2024-07-19 16:20 | disposition home or self-care (01) ==
LOC: HO.HVNA 16:19
PROVIDERS: Visit Provider Internal Medicine
DX: E83.39 Other disorders of phosphorus metabolism (principal)
CPT/HCPCS: 84105

== ENCOUNTER 2024-07-22 12:47 | Outpatient (AMB) | payer MEDICARE, BC, SELFPAY ==
--- NOTE | 2024-07-22 12:51 | MHC.OFFVIS ---
Vital Signs 07/22/24 12:54 Height 5 ft 8 in BMI Reason not done Patient refused/unable BP 90/60 Blood Pressure Location Lt brachial Position Sitting Pulse 80 Pulse Source Pulse Oximeter Pulse Oximetry (%) 99 Oxygen Delivery Method Room Air Intake Visit Reasons: Osteoporosis/cm Intake Note: Patient presents for Osteoporosis. Allergies blackberry Allergy (Severe, Verified 07/22/24 12:54) Rash and Hives lanolin Allergy (Severe, Verified 07/22/24 12:54) Rash and Hives latex [LATEX] Allergy (Severe, Verified 07/22/24 12:54) RASH Sulfa (Sulfonamide Antibiotics) [SULFA (SULFONAMIDE ANTIBIOTICS)] Allergy (Severe, Verified 07/22/24 12:54) JUANDICE tree nut [TREE NUT] Allergy (Severe, Verified 07/22/24 12:54) ANAPHYLAXIS rasberries Allergy (Severe, Uncoded 07/15/24 14:53) Rash and Hives Tetanus Allergy (Severe, Uncoded 07/15/24 14:53) Rash and Hives Medication List - Last Reconciled 07/22/24 by Иван Washington MD albuterol sulfate 90 mcg/actuation 2 puffs inhalation Q6H PRN albuterol sulfate 1.25 mg (3 mL) inhalation QID ascorbate calcium (vitamin C) 500 mg PO DAILY baclofen 10 mg PO TID baclofen 20 mg PO BEDTIME cholecalciferol (vitamin D3) 50 mcg PO DAILY uqbxtxafu-Da-tdmei-mushroomcmb [id number] uz-rbi-qr-mg tabs PO diaper,brief,adult,disposable Size large disposable gloves As directed epinephrine IM DIRECTED gel dressing (Skintegrity Hydrogel topical) As directed magnesium gluconate 30 mg PO DAILY methenamine hippurate 1 g PO BID multivitamin 1 tab PO DAILY nebulizers As directed omega-3 fatty acids 500 mg PO DAILY peg 400-propylene glycol 0.4-0.3 % (Systane Gel) 1 drp ophthalmic (eye) BEDTIME 30 days quetiapine (Seroquel) 25 mg PO TID 90 days rituximab (Rituxan) IV [robu cushion As directed] sertraline 50 mg PO DAILY underpads As directed [wheelchair motorized with Roku cushion As directed] zinc gluconate 15 mg PO DAILY HPI Comments Details: Patient returns for follow-up after completion of her diagnostic workup. Initial history: This is a 63-year-old female with neuromuscular dystrophy, wheelchair-bound, neuromyelitis optica, s/p tracheostomy, ventilator dependent, now off the ventilator. Who presents for evaluation of osteoporosis. Patient was diagnosed with her neuromuscular disease in her 40s. From chart review I gather that she is treated with rituximab for her neuromuscular disorder. She is wheelchair-bound. She was found to have significant osteoporosis on her bone density scan. She also states that she was diagnosed with Sjogren's by her PCP based on dry eyes and dry mouth. She uses artificial tears twice a day and does not have any specific treatment for dry mouth. [facility] Medical History 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 Thigh shingles Vegetarian diet COVID-19 Diarrhea Edema of right foot Asthma-COPD overlap syndrome Breast pain, left Decubitus ulcer, stage 4 Mild depression Wheelchair bound Hypovitaminosis D B12 deficiency Muscle spasm Idiopathic hypotension Neuromyelitis Surgical History Tracheostomy status Status post insertion of percutaneous endoscopic gastrostomy (PEG) tube History of lipoma Family History Father Diabetes Bone cancer Mother Diabetes Social History Housing: House Alcohol intake: never Patient Tobacco Use Status: Former Tobacco user Tobacco use type: Cigarette Years Smoked: 2 years e-Cigarette/Vaping Use: Never Used Second Hand Smoke Exposure: No service: No Current occupational status: disabled Cognitive needs: Yes Hearing needs: Yes Vision needs: Yes Review of Systems Eyes Reports dry eyes ENT Reports dry mouth Musc Denies arthralgias Physical Exam Vital Signs: Last Vital Signs Pulse 80 07/22/24 12:54 BP 90/60 07/22/24 12:54 Pulse Ox 99 07/22/24 12:54 Oxygen Delivery Method Room Air 07/22/24 12:54 Const General: cooperative, healthy appearing and comfortable Orientation/consciousness: patient oriented x3 Limitations: wheelchair HEENT Head: Yes normocephalic and Yes atraumatic Resp Effort & Inspection: normal respiratory effort and able to speak in complete sentences Neuro General: patient oriented x3 Extrem Other: Mild flexion contracture of her left hand fingers Mild spasticity of her arm muscles No active synovitis Significant weakness of her lower extremity Quality Reporting (2019) Adult ([facility] 13811/15/68) Smoking risk assessment performed?: Yes Patient Tobacco Use Status: Former Tobacco user Assessment & Plan Assessment & Plan (1) Osteoporosis: Code(s): M81.0 - Age-related osteoporosis without current pathological fracture Category: Medical Qualifiers: Osteoporosis type: age-related Presence of current pathological fracture: without current pathological fracture Qualified Code(s): M81.0 - Age-related osteoporosis without current pathological fracture Plan: This is a 63-year-old female with neuromuscular disorder, neuromyelitis optica, wheelchair-bound who presents for evaluation of osteoporosis. She denies history of fractures. Her blood work shows low serum phosphorus level with low random urine phosphorus. Mildly elevated PTH. Patient denies diarrhea. I will refer patient to endocrinology to rule out any secondary causes of osteoporosis. Follow-up after endocrinology visit. (2) Sjogrens syndrome: Code(s): M35.00 - Sjogren syndrome, unspecified Category: Medical Qualifiers: Sjogren organ or system involvement: keratoconjunctivitis Qualified Code(s): M35.01 - Sjogren syndrome with keratoconjunctivitis Plan: States that she was diagnosed with Sjogren's based on dry eyes and dry mouth by her PCP years ago. She uses artificial tears twice a day and has dry mouth. Comprehensive serology for underlying autoimmune rheumatic disease is negative including negative SSA SSB and normal inflammatory markers. Plan I spent 15 minutes reviewing patient's chart, evaluating patient, counseling patient and documenting in the chart Orders: Referrals Endocrinology Referral E83.39 - Other disorders of phosphorus metabolism Coding Level of Care Code Est Pt Level 3 (93065) Diagnoses Age-related osteoporosis without current pathological fracture M81.0 Osteoporosis type: age-related Presence of current pathological fracture: without current pathological fracture Sjogren's syndrome with keratoconjunctivitis sicca M35.01 Sjogren organ or system involvement: keratoconjunctivitis
[2024-07-22 12:54] VITALS: BP 90/60; PULSE 80; O2SAT 99
== END 2024-07-22 13:24 | disposition home or self-care (01) ==
PROVIDERS: PCP Internal Medicine; Visit Provider Student in an Organized Health Care Education/Training Program
DX: M81.0 Age-related osteoporosis without current pathological fracture (principal); M35.01 Sjogren syndrome with keratoconjunctivitis
CPT/HCPCS: 99213

== ENCOUNTER → 2024-07-22 12:47 | Outpatient (BNVA) | payer MEDICARE, MEDICAID, SELFPAY | PROVIDERS: PCP Internal Medicine; Visit Provider Student in an Organized Health Care Education/Training Program | DX: M81.0 Age-related osteoporosis without current pathological fracture (principal); M35.01 Sjogren syndrome with keratoconjunctivitis; Z99.3 Dependence on wheelchair | CPT/HCPCS: 99212 ==

== ENCOUNTER 2024-08-19 13:45 | Outpatient (AMB) | payer MEDICARE, BC, SELFPAY ==
[2024-08-19 13:48] VITALS: BP 86/60; PULSE 76
--- NOTE | 2024-08-19 13:48 | A.OFFVIS_ITS ---
Vital Signs 08/19/24 13:48 Height 5 ft 8 in BP 86/60 L Blood Pressure Location Rt brachial Position Sitting Pulse 76 Pulse Source Pulse Oximeter Intake Visit Reasons: Other disorders of phosphorus metabolism Intake Note: New patient present today for Other disorders of phosphorus metabolism office visit. [employer] Required: No Accompanied by: Spouse Allergies blackberry Allergy (Severe, Verified 08/19/24 13:59) Rash and Hives lanolin Allergy (Severe, Verified 08/19/24 13:59) Rash and Hives latex [LATEX] Allergy (Severe, Verified 08/19/24 13:59) RASH Sulfa (Sulfonamide Antibiotics) [SULFA (SULFONAMIDE ANTIBIOTICS)] Allergy (Severe, Verified 08/19/24 13:59) JUANDICE tree nut [TREE NUT] Allergy (Severe, Verified 08/19/24 13:59) ANAPHYLAXIS rasberries Allergy (Severe, Uncoded 08/19/24 13:59) Rash and Hives Tetanus Allergy (Severe, Uncoded 08/19/24 13:59) Rash and Hives Medication List - Last Reconciled 08/19/24 by Kalee Feng MD albuterol sulfate 90 mcg/actuation 2 puffs inhalation Q6H PRN albuterol sulfate 1.25 mg (3 mL) inhalation QID ascorbate calcium (vitamin C) 500 mg PO DAILY baclofen 10 mg PO TID baclofen 20 mg PO BEDTIME cholecalciferol (vitamin D3) 50 mcg PO DAILY tqzxsyaky-Ek-rczpx-mushroomcmb [phone] hh-wbx-fq-mg tabs PO diaper,brief,adult,disposable Size large disposable gloves As directed epinephrine IM DIRECTED gel dressing (Skintegrity Hydrogel topical) As directed applied to wound daily magnesium gluconate 30 mg PO DAILY methenamine hippurate 1 g PO BID multivitamin 1 tab PO DAILY nebulizers As directed omega-3 fatty acids 500 mg PO DAILY peg 400-propylene glycol 0.4-0.3 % (Systane Gel) 1 drp ophthalmic (eye) BEDTIME 30 days quetiapine (Seroquel) 25 mg PO TID 90 days rituximab (Rituxan) IV [robu cushion As directed] sertraline 50 mg PO DAILY underpads As directed [wheelchair motorized with Roku cushion As directed] zinc gluconate 15 mg PO DAILY HPI Comments Details: 63-year-old female here today for initial evaluation of osteoporosis. She was being evaluated by Rheumatology when she was noted to have low phosphorus levels and was referred to us to get evaluated for secondary causes of osteoporosis. BMD January 2024 showed normal BMD of the spine, severe osteoporosis of the hip with T score -4.4 at the left femoral neck and -5.1 at the total hip She follows with Dr. Jabari Roth , at [facility] in [place]. Neurology. She has a diagnosis of neuromyelitis optica spectrum disorder ( autoimmune) . Diagnosed June 2006. In the past she used to be on steroids, IV steroids every 4 to 5 months off now since 10 years but was on them for 10 or so years, now on Rituximab every 6 months . She is limited mobility in her lower extremities . April 2008 she lost lower limb mobility suddenly also has history of melanoma 2012 , upper right thigh , surgically removed . No other cancer history , no radiation therapy Osteoporosis new pt evaluation Post menopausal osteoporosis: Diagnosed in 2023 Fracture History: no fractures, no falls Height loss: 5 ft 8 inches Back pain: none Pharmacotherapeutic hx: none Drug holiday none Family history: no history of osteoporosis, neither parent fractured hip Estrogen use: menarche 10 years. natural menopausal aged 45 years . used to have hot flashes at that time too. no HRT. on OCPS for 3 years in early 20s. 2 pregnancies, both live births. Menstrual hx: used to get them every 26 days Secondary risk factors: Steroid use: In the past she used to be on steroids, IV steroids every 4 to 5 months off now since 10 years but was on them for 10 or so years, Hyperthyroidism: Neg Seizure medication use: phenobarbital for a year when she was 17 years old Chemo or Radiation use: Neg Heparin Use: used to be on heparin when she was hospitalized for 10 months History of eating disorder: Negative nursing home immobilization: yes ,She has a diagnosis of neuromyelitis optica spectrum disorder ( autoimmune) . Diagnosed June 2006. In the past she used to be on steroids, IV steroids every 4 to 5 months off now since 10 years but was on them for 10 or so years, now on Rituximab every 6 months . She is limited mobility in her lower extremities . April 2008 she lost lower limb mobility suddenly History of kidney stones or disease: yes, lithotripsy 2018, has a suprapubic catheter PI Use: none Chronic inflammatory lung disease: Negative Chronic inflammatory bowel disease: Negative Daily calcium intake: no supplements, no milk , cheese once a week , yogurt none Vitamin D intake: 2000 units daily Exercise:none Smoking history: smoked till 19 years of age , social smoker Dental: Has regular dental cleaning, no issues, eveyr 6 months, has some root canals, no planned procedures at this time No diarrhea currenlty, but she does have some loose stools when she goes on antibiotcs intermittenly cannot recall if at the time of labs in May was having diarrhea. No history of DM, not on insulin. She seems to be breathing normally but says her neurological disorder can cause breathing disorders. Trach from 2008 to 2019. Physical exam General: sitting comfortably in no acute distress HEENT: normocephalic/atraumatic, moist oral mucosa Neck: supple, symmetrical Cardiac: normal heart sounds Pulm: normal breath sounds B/L, no added breath sounds Abd: not distended, no tenderness Laboratory Tests 11/06/18 01/26/21 03/03/22 00:00 10:50 16:07 Calcium 9.1 9.4 Phosphorus Magnesium Albumin 3.5 3.8 25-OH Vitamin D Total 55 TSH PTH Intact 01/08/24 02/12/24 06/17/24 15:25 15:09 14:34 Calcium 9.3 9.7 Phosphorus 2.3 L Magnesium 2.0 Albumin 3.8 3.8 25-OH Vitamin D Total 50.2 55.5 TSH 1.30 PTH Intact 81.4 H BONE DENSITOMETRY 02/12/24 CLINICAL INDICATION: Menopause. COMPARISON: This is the patient's baseline examination. TECHNIQUE: Using a [employer] DXA System (software version: 13.1) manufactured by [employer], dual-energy x-ray absorptiometry was performed of the lumbar spine and left hip. The images are of good technical quality. Summary results are attached. FINDINGS: LEFT FEMUR, NECK: BMD 0.424 g/cm2, Z-score -3.1, T-score -4.4, osteoporosis. LEFT FEMUR, TOTAL: BMD 0.370 g/cm2, Z-score -4.0, T-score -5.1, osteoporosis. AP SPINE L1-L4: BMD 1.246 g/cm2, Z-score 1.9, T-score 0.6, normal. IDENTIFIED RISK FACTORS: Menopause, osteoporosis, rheumatoid arthritis, glucocorticoids (chronic). HISTORY OF FRACTURE: None listed. MEDICATIONS: Calcium, vitamin D. MM/XR DEXA axial skeleton IMPRESSION: 1. DIAGNOSIS: Osteoporosis based on the lowest T-score value of -5.1 in the total femur applying World Health Organization criteria. 2. 10-YEAR FRACTURE RISK PREDICTION, FRAX: According to the guidelines, FRAX calculation should only be performed on patients in the osteopenia bone density category. Therefore, FRAX was not performed on this patient. 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 Thigh shingles Vegetarian diet COVID-19 Diarrhea Edema of right foot Asthma-COPD overlap syndrome Breast pain, left Decubitus ulcer, stage 4 Mild depression Wheelchair bound Hypovitaminosis D B12 deficiency Muscle spasm Idiopathic hypotension Neuromyelitis Surgical History Tracheostomy status Status post insertion of percutaneous endoscopic gastrostomy (PEG) tube History of lipoma Family History Father Diabetes Bone cancer Mother Diabetes Social History Housing: House Alcohol intake: never Patient Tobacco Use Status: Former Tobacco user Tobacco use type: Cigarette Years Smoked: 2 years e-Cigarette/Vaping Use: Never Used Second Hand Smoke Exposure: No service: No Current occupational status: disabled Cognitive needs: Yes Hearing needs: Yes Vision needs: Yes Quality Reporting (2019) Adult ([facility] 138/11/15/68) Smoking risk assessment performed?: Yes Patient Tobacco Use Status: Former Tobacco user Assessment & Plan Assessment & Plan (1) Osteoporosis: Code(s): M81.0 - Age-related osteoporosis without current pathological fracture Category: Medical Qualifiers: Osteoporosis type: age-related Presence of current pathological fracture: without current pathological fracture Qualified Code(s): M81.0 - Age- related osteoporosis without current pathological fracture Plan: 63-year-old female her today for initial evaluation of osteoporosis. Diagnosed with osteoporosis in January 2024 on bone density scan which showed severe osteoporosis of the hip T-score of-4.4 at the left femoral neck and-5.1 at the total hip. Normal bone density of the spine. She has never been on therapy for osteoporosis before this was her 1st bone density scan. High-risk factors for osteoporosis include immobility due to neurologic disorder in the lower limbs, postmenopausal, age, long-term steroid used in the past for autoimmune neurologic condition, poor nutritional intake of calcium. She also saw a Rheumatology recently, and her blood work from May 2024 showed low phosphorus of 2.3, normal calcium of 9.7 with albumin of 3.8, vitamin-D of 5.5, PTH mildly elevated at 81.4. Normal kidney function. Low phosphorus levels are mostly seen in the setting of vitamin-D deficiency however her vitamin-D levels were reasonable. Primary hyperparathyroidism can also cause low phosphorus levels especially mild as in her case, so she could possibly have normocalcemic hyperparathyroidism, she has also had a history of kidney stone in the past. No elevated calcium levels seen. The phosphorus was a 1 time reading, and she thinks she could possibly have been having diarrhea at the time due to antibiotic use, hence I will recheck her phosphorus levels along with re-evaluation of her PTH levels as well as calcium. We will also check 24 hour urine as well as spot urine calcium, phosphorous, creatinine levels to see how her kidneys handling these minerals. Normal magnesium levels noted from January 2024. Kidney function has been normal in May 2024. If her phosphorus comes back unremarkable and we are not chasing hypophosphatemia, then she would still need medical management for her osteoporosis. I discussed conservative measures including adequate calcium intake, adequate vitamin D levels as well as the role of weightbearing exercises in general being good for bone health. Given she does not have mobility in her lower limbs, we briefly discussed role of resistance training on lower extremity muscles, patient is has been was with her during this visit in suggested a sff-ji-lipcw exercise machine. In addition to conservative management with calcium and vitamin D; I do believe she would benefit from antiresorptive therapy in terms of reducing future fracture risk. Given severity of osteoporosis in the hip, she would benefit from an anabolic agent. While Mikala and Ellao do not have very strong data for improvement in bone density at the hip, Evenity has shown improvement in bone density by 12% in the spine and 5% in the hip. I counseled regarding the mechanism of action, route of administration, common side effects as well as black box warnings particularly osteonecrosis of the jaw and atypical femur fracture. Prior to initiating therapy I would like her to complete work-up to get baseline bone turnover markers as well as rule out secondary causes of osteoporosis especially with regards to the low phosphorus evaluation. Plan: -ordered secondary workup for osteoporosis with blood work, 24 hour urine test to live as well as spot urine tests -continue vitamin-D 2000 units daily -improve nutritional intake of calcium to accommodate at least 800-1000 mg in a day -try for weight-bearing exercise on the lower limbs with resistance bands -we will consider starting her on Evenity once we have her back for follow up in 4 weeks to discuss results Plan I spent 60 minutes in reviewing the record, seeing the patient and documenting in the medical record. Orders: Orders Albumin Level Today M81.0 - Age-related osteoporosis without current pathological fracture Collagen Type I C-Telopeptide Today M81.0 - Age-related osteoporosis without current pathological fracture Parathyroid Hormone Intact Today M81.0 - Age-related osteoporosis without current pathological fracture Calcium, 24 Hr Ur Today M81.0 - Age-related osteoporosis without current pathological fracture Creatinine, 24 Hr Group Today M81.0 - Age-related osteoporosis without current pathological fracture Protein Electrophoresis, Serum Today M81.0 - Age-related osteoporosis without current pathological fracture Phosphorus Urine Random Today M81.0 - Age-related osteoporosis without current pathological fracture Calcium, Random Urine Today M81.0 - Age-related osteoporosis without current pathological fracture Calcium, Ionized Today M81.0 - Age-related osteoporosis without current pa thological fracture Calcium Today M81.0 - Age-related osteoporosis without current pathological fracture Alkaline Phosphatase Bone Today M81.0 - Age-related osteoporosis without current pathological fracture Phosphorus Today M81.0 - Age-related osteoporosis without current pathological fracture Vitamin D 25-OH Total Today M81.0 - Age-related osteoporosis without current pathological fracture TSH reflex Free T4 Today M81.0 - Age-related osteoporosis without current pathological fracture Immunofixation Pnl, Serum Today M81.0 - Age-related osteoporosis without current pathological fracture Phosphorus 24Hr Urine Group Today M81.0 - Age-related osteoporosis without current pathological fracture Magnesium Today M81.0 - Age-related osteoporosis without current pathological fracture Basic Metabolic Panel Today M81.0 - Age-related osteoporosis without current pathological fracture Creatinine Urine Today M81.0 - Age-related osteoporosis without current pathological fracture Patient Instructions: Continue taking vitamin d 2000 units daily Do 24 hr urine collection and same day as you hand in the urine give fasting blood as well as a urine test 24 hr urine collection instructions You have been asked to collect your urine for 24 hours to assess for calcium excretion. You must choose a 24 hour period of time when you will be home. The morning of the first day, DISCARD the FIRST morning void and then note the time. You will collect every single void from then on for 24 hours. For example, if you wake up at 6am and urinate, flush down that void. You will then collect every drop of urine all day and all night through 6am the following day. You will urinate one last time at 6am for the collection. The jug of urine must be kept in the refrigerator until you bring it to the lab.You have been asked to collect your urine for 24 hours to assess for calcium excretion. You must choose a 24 hour period of time when you will be home. The morning of the first day, DISCARD the FIRST morning void and then note the time. You will collect every single void from then on for 24 hours. For example, if you wake up at 6am and urinate, flush down that void. You will then collect every drop of urine all day and all night through 6am the following day. You will urinate one last time at 6am for the collection. The jug of urine must be kept in the refrigerator until you bring it to the lab. dont take your magnesium supplement the day before and of the blood work Please try to incorporate 800 to 1000 mg of calcium daily (kale, broccoli, cheese, yogurt, spinach, oat milk fortified with calcium) Read up on [employer] genric name Romosozumab Coding Level of Care Code New Pt Level 5 (49868) Diagnoses Age-related osteoporosis without current pathological fracture M81.0 Osteoporosis type: age-related Presence of current pathological fracture: without current pathological fracture Time Spent (min) 60
== END 2024-08-19 15:10 | disposition home or self-care (01) ==
PROVIDERS: PCP Internal Medicine; Visit Provider Student in an Organized Health Care Education/Training Program
DX: M81.0 Age-related osteoporosis without current pathological fracture (principal)
CPT/HCPCS: 99205

== ENCOUNTER → 2024-08-19 13:45 | Outpatient (BNVA) | payer MEDICARE, BC, SELFPAY | PROVIDERS: PCP Internal Medicine; Visit Provider Student in an Organized Health Care Education/Training Program | DX: M81.0 Age-related osteoporosis without current pathological fracture (principal) | CPT/HCPCS: 99202 ==

== ENCOUNTER 2024-09-02 14:21 | Outpatient (REF) | payer MEDICARE, BC, SELFPAY ==
[2024-09-02 15:25] LABS: Calcium 9.5 mg/dL (8.4-10.2)
[2024-09-02 15:33] LABS: Parathyroid Hormone Intact 55.2 pg/mL (8.7-77.1)
[2024-09-02 15:34] LABS: Albumin Level 3.7 g/dL (3.5-5.0); Anion Gap 13 (12-20); Blood Urea Nitrogen 9 mg/dL (9-16); Calcium 9.4 mg/dL (8.4-10.2); Carbon Dioxide 24 mmol/L (22-29); Chloride 105 mmol/L (96-108); Estimated Glomerular Filt Rate > 60; Glucose Random 85 mg/dL (60-115); Magnesium 2.2 mg/dL (1.6-2.6); Phosphorus 3.1 mg/dL (2.7-4.5); Sodium 138 mmol/L (135-145)
[2024-09-02 15:51] LABS: TSH reflex Free T4 2.07 uIU/mL (0.32-4.0); Vitamin D 25-OH Total 51.9 ng/mL (>30)
[2024-09-02 16:28] LABS: Creatinine Urine 17.25 mg/dL
[2024-09-02 16:28] LABS: Creatinine, mg/dL 14.56; Phosphorus mg/dL 9.4 mg/dL
[2024-09-02 16:29] LABS: Creatinine, mg/dL 13.39
[2024-09-02 16:29] LABS: Phosphorus Urine Random 12.3 mg/dL
[2024-09-02 17:05] LABS: Creatinine, 24Hr Urine 0.4 G/Day (1.0-2.0); Phosphorus, 24 Hr Urine 0.3 G/Day (0.4-1.3); Total Volume 24 Hour Urine 2700 mL
[2024-09-02 17:06] LABS: Creatinine, 24Hr Urine 0.4 G/Day (1.0-2.0); Total Volume 24 Hour Urine 2700 mL
[2024-09-03 18:13] LABS: Calcium, Random Urine 2.3 mg/dL
[2024-09-03 18:38] LABS: Calcium, 24 Hr Urine 43 mg/24 h; Calcium/Creatinine Ratio 107 mg/g creat (30-275); Creatinine 24Hr Urine 0.41 g/24 h (0.50-2.15)
--- OUTSIDE RECORDS SUMMARY | 2024-09-03 22:04 | XMS_ITS ---
Author Name [facility] Organization Unknown History of Medication Use Medication Directions Dispensed Refills Start Date End Date Status methenamine (HIPREX) 1 g tablet Take 1 tablet (1 g total) by mouth 2 (two) times a day with meals. 4 active riTUXimab (RITUXAN) 500 MG/50ML injection (10 mg/mL) Inject into the vein once. 4 active EPINEPHrine 0.3 MG/0.3ML SOAJ See Instructions, Intramuscular Once for anaphylaxis reaction, # 2 each, 1 Refills, Soft Stop, 06/21/15 15:46:31, Intramuscular Once for anaphylaxis reaction 4 active ascorbic acid (VITAMIN C) 500 MG tablet Take 1 tablet (500 mg total) by mouth daily. 4 active Misc Natural Products (MAGIC MUSHROOM MIX PO) Take by mouth. 12/29/19 2 4 active QUEtiapine (SEROquel) 25 MG tablet Take 1 tablet (25 mg total) by mouth 2 (two) times a day. 4 active Cyanocobalamin (B-12) 2500 MCG TABS Take 2,500 mcg by mouth daily. 4 active vitamin D3 (VITAMIN D3) 25 MCG (1000 UT) tablet Take 2 tablets (2,000 Units total) by mouth daily. 4 active baclofen (LIORESAL) 10 MG tablet TAKE 1&1/2 TABLETS BY MOUTH 3 TIMES DAILY 4 aborted baclofen (LIORESAL) 20 MG tablet 10mg morning and afternoon, 20mg at night 4 active medroxyPROGESTERone (PROVERA) 10 MG tablet Take 1 tablet (10 mg total) by mouth daily. 4 active amitriptyline (ELAVIL) tablet 25 mg Take 1 tablet (25 mg total) by mouth every night at bedtime for 7 days, THEN 2 tablets (50 mg total) every night at bedtime for 7 days, THEN 3 tablets (75 mg total) every night at bedtime for 30 days. 4 active midodrine (PROAMATINE) 5 MG tablet Take 1 tablet (5 mg total) by mouth 2 (two) times a day. 4 active albuterol 108 (90 Base) MCG/ACT inhaler Inhale 2 puffs into the lungs daily. 4 active botulinum toxin type A (Botox) 100 units SOLR injection Inject as directed every six months 4 active sertraline (ZOLOFT) 50 MG tablet Take 1 tablet (50 mg total) by mouth daily. 4 active Cyanocobalamin 5000 MCG/ML LIQD Place 5,000 mcg under the tongue. 4 aborted magnesium gluconate (MAGONATE) 30 MG tablet Take 1 tablet (30 mg total) by mouth 2 (two) times a day. 4 active Biotin 5000 MCG TABS Take 5,000 mcg by mouth 3 (three) times a week. 4 aborted Problems Problem Status Onset Date Problem Type Date of Resoluti on Source [facility] 2022-04-13 ProblemAct [id number]
[2024-09-04 10:39] LABS: Prot Elec - Alpha1 0.2 g/dL (0.2-0.3); Prot Elec - Alpha2 0.6 g/dL (0.5-0.9); Prot Elec - Beta 1 0.4 g/dL (0.4-0.6); Prot Elec - Beta 2 0.5 g/dL (0.2-0.5); Prot Elec - Total Protein 6.7 g/dL (6.1-8.1)
[2024-09-04 11:53] LABS: Calcium, Ionized 5.4 mg/dL (4.7-5.5)
[2024-09-04 22:44] LABS: IgA 364 mg/dL (70-320); IgG 1076 mg/dL (600-1540); IgM 13 mg/dL (50-300)
[2024-09-05 13:42] LABS: Alkaline Phosphatase Bone 15.4 mcg/L (5.6-29.0)
[2024-09-06 16:27] LABS: Collagen Type I C-Telopeptide 340 pg/mL (see note)
== END 2024-09-02 14:22 | disposition home or self-care (01) ==
LOC: HO.LAB 14:21
PROVIDERS: PCP Internal Medicine; Visit Provider Student in an Organized Health Care Education/Training Program
DX: M81.0 Age-related osteoporosis without current pathological fracture (principal)
CPT/HCPCS: 36415; 80048; 82040; 82306; 82310; 82330; 82340; 82523; 82570; 82784; 83735; 83970; 84075; 84100; 84105; 84165; 84443; 86334

== ENCOUNTER 2024-10-06 14:23 | Outpatient (AMB) | payer MEDICARE, BC, SELFPAY ==
[2024-10-06 14:24] VITALS: BP 116/78; PULSE 69
--- NOTE | 2024-10-06 14:24 | A.OFFVIS_ITS ---
Vital Signs 10/06/24 14:24 Height 5 ft 8 in BMI Reason not done Patient refused/unable BP 116/78 Blood Pressure Location Rt brachial Position Sitting Pulse 69 Pulse Source Pulse Oximeter Intake Visit Reasons: Other disorders of phosphorus metabolism Intake Note: Patient present today for a follow-up on Other disorders of phosphorus metabolism: Canvas Baster Required: No Accompanied by: Spouse Allergies blackberry Allergy (Severe, Verified 10/06/24 14:26) Rash and Hives lanolin Allergy (Severe, Verified 10/06/24 14:26) Rash and Hives latex [LATEX] Allergy (Severe, Verified 10/06/24 14:26) RASH Sulfa (Sulfonamide Antibiotics) [SULFA (SULFONAMIDE ANTIBIOTICS)] Allergy (Severe, Verified 10/06/24 14:26) JUANDICE tree nut [TREE NUT] Allergy (Severe, Verified 10/06/24 14:26) ANAPHYLAXIS rasberries Allergy (Severe, Uncoded 10/06/24 14:26) Rash and Hives Tetanus Allergy (Severe, Uncoded 10/06/24 14:26) Rash and Hives HPI Comments Details: 63-year-old female here today for follow up of osteoporosis. HPI from initial visit She was being evaluated by Rheumatology when she was noted to have low phosphorus levels and was referred to us to get evaluated for secondary causes of osteoporosis. BMD January 2024 showed normal BMD of the spine, severe osteoporosis of the hip with T score -4.4 at the left femoral neck and -5.1 at the total hip She follows with Dr. Jabari Roth , at [facility] in [place]. Neurology. She has a diagnosis of neuromyelitis optica spectrum disorder ( autoimmune) . Diagnosed June 2006. In the past she used to be on steroids, IV steroids every 4 to 5 months off now since 10 years but was on them for 10 or so years, now on Rituximab every 6 months . She is limited mobility in her lower extremities . April 2008 she lost lower limb mobility suddenly also has history of melanoma 2012 , upper right thigh , surgically removed . No other cancer history , no radiation therapy Osteoporosis new pt evaluation Post menopausal osteoporosis: Diagnosed in 2023 Fracture History: no fractures, no falls Height loss:no: 5 ft 8 inches Back pain: none Pharmacotherapeutic hx: none Drug holiday none Family history: no history of osteoporosis, neither parent fractured hip Estrogen use: menarche 10 years. natural menopausal aged 45 years . used to have hot flashes at that time too. no HRT. on OCPS for 3 years in early 20s. 2 pregnancies, both live births. Menstrual hx: used to get them every 26 days Secondary risk factors: Steroid use: In the past she used to be on steroids, IV steroids every 4 to 5 months off now since 10 years but was on them for 10 or so years, Hyperthyroidism: Neg Seizure medication use: phenobarbital for a year when she was 17 years old Chemo or Radiation use: Neg Heparin Use: used to be on heparin when she was hospitalized for 10 months History of eating disorder: Negative [facility]CI immobilization: yes ,She has a diagnosis of neuromyelitis optica spectrum disorder ( autoimmune) . Diagnosed June 2006. In the past she used to be on steroids, IV steroids every 4 to 5 months off now since 10 years but was on them for 10 or so years, now on Rituximab every 6 months . She is limited mobility in her lower extremities . April 2008 she lost lower limb mobility suddenly History of kidney stones or disease: yes, lithotripsy 2018, has a suprapubic catheter PI Use: none Chronic inflammatory lung disease: Negative Chronic inflammatory bowel disease: Negative Daily calcium intake: no supplements, no milk , cheese once a week , yogurt none Vitamin D intake: 2000 units daily Exercise:none Smoking history: smoked till 19 years of age , social smoker Dental: Has regular dental cleaning, no issues, eveyr 6 months, has some root canals, no planned procedures at this time No diarrhea currenlty, but she does have some loose stools when she goes on antibiotcs intermittenly cannot recall if at the time of labs in May was having diarrhea. No history of DM, not on insulin. She seems to be breathing normally but says her neurological disorder can cause breathing disorders. Trach from 2008 to 2019. Interval history Labs from 09/02/2024 showed that her phosphorus level normalized to 3.1. Other secondary workup for osteoporosis also unremarkable, normal calcium of 9.5, with albumin of 4, normal ionized calcium of 5.4, normal magnesium level. Normal thyroid function. Vitamin-D level of 51.9. Normal kidney function with a EGFR greater than 60. CTX level of 340, showing that resorption is not that high, she would rather benefit from an anabolic agent. Bone specific alkaline phosphatase level of 15.4. 24 hour urine calcium on the lower side at 43 as well as low 24 hour urine phosphorus. Likely due to poor nutritional intake calcium and phosphorus. Up-to-date with dental care, last visit last month Continues on vitamin-D 2000 units daily Physical exam General: sitting comfortably in no acute distress HEENT: normocephalic/atraumatic, moist oral mucosa Neck: supple, symmetrical Cardiac: normal heart sounds Pulm: normal breath sounds B/L, no added breath sounds Abd: not distended, no tenderness Laboratory Tests 11/06/18 01/26/21 03/03/22 00:00 10:50 16:07 Calcium 9.1 9.4 Phosphorus Magnesium Albumin 3.5 3.8 25-OH Vitamin D Total 55 TSH PTH Intact 01/08/24 02/12/24 06/17/24 15:25 15:09 14:34 Calcium 9.3 9.7 Phosphorus 2.3 L Magnesium 2.0 Albumin 3.8 3.8 25-OH Vitamin D Total 50.2 55.5 TSH 1.30 PTH Intact 81.4 H Laboratory Tests 06/27/24 09/02/24 09/02/24 14:56 08:30 13:30 Sodium Potassium Creatinine Estimated GFR Calcium Ionized Calcium Phosphorus Magnesium Alk Phos Bone Specific Total Protein (PEP) Albumin Albumin (PEP) Ldguo-0-Sebehmpaa Ahir-5-Gwjvjmhb Hhyq-4-Jvcaiwnw Gamma Globulins Collgn I C-Telopeptide 367 25-OH Vitamin D Total TSH PTH Intact Ur Random Phosphorus 12.3 Ur Random Calcium 2.3 Ur 24 Hour Volume 2700 Urine Creatinine 17.25 Ur Creatinine mg/dL 13.39 Ur Creatinine 24 Hour 0.4 L Ur Phosphorus 24 Hr 0.3 L Ur Calcium 24 Hr 43 Calcium/Creat 24 Hr 107 09/02/24 14:46 Sodium 138 Potassium 4.0 Creatinine 0.51 Estimated GFR > 60 Calcium 9.5 Ionized Calcium 5.4 Phosphorus 3.1 Magnesium 2.2 Alk Phos Bone Specific 15.4 Total Protein (PEP) 6.7 Albumin 3.7 Albumin (PEP) 4.0 Nroof-8-Nopfssmas 0.6 Jjvq-6-Jwuxplsv 0.4 Xkox-2-Mmmkvyeo 0.5 Gamma Globulins 1.0 Collgn I C-Telopeptide 340 25-OH Vitamin D Total 51.9 TSH 2.07 PTH Intact 55.2 Ur Random Phosphorus Ur Random Calcium Ur 24 Hour Volume Urine Creatinine Ur Creatinine mg/dL Ur Creatinine 24 Hour Ur Phosphorus 24 Hr Ur Calcium 24 Hr Calcium/Creat 24 Hr BONE DENSITOMETRY 02/12/24 CLINICAL INDICATION: Menopause. COMPARISON: This is the patient's baseline examination. TECHNIQUE: Using a invino DXA System (software version: 13.1) manufactured by [employer], dual-energy x-ray absorptiometry was performed of the lumbar spine and left hip. The images are of good technical quality. Summary results are attached. FINDINGS: LEFT FEMUR, NECK: BMD 0.424 g/cm2, Z-score -3.1, T-score -4.4, osteoporosis. LEFT FEMUR, TOTAL: BMD 0.370 g/cm2, Z-score -4.0, T-score -5.1, osteoporosis. AP SPINE L1-L4: BMD 1.246 g/cm2, Z-score 1.9, T-score 0.6, normal. IDENTIFIED RISK FACTORS: Menopause, osteoporosis, rheumatoid arthritis, glucocorticoids (chronic). HISTORY OF FRACTURE: None listed. MEDICATIONS: Calcium, vitamin D. MM/XR DEXA axial skeleton IMPRESSION: 1. DIAGNOSIS: Osteoporosis based on the lowest T-score value of -5.1 in the total femur applying World Health Organization criteria. 2. 10-YEAR FRACTURE RISK PREDICTION, FRAX: According to the guidelines, FRAX calculation should only be performed on patients in the osteopenia bone density category. Therefore, FRAX was not performed on this patient. 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 Thigh shingles Vegetarian diet COVID-19 Diarrhea Edema of right foot Asthma-COPD overlap syndrome Breast pain, left Decubitus ulcer, stage 4 Mild depression Wheelchair bound Hypovitaminosis D B12 deficiency Muscle spasm Idiopathic hypotension Neuromyelitis Surgical History Tracheostomy status Status post insertion of percutaneous endoscopic gastrostomy (PEG) tube History of lipoma Family History Father Diabetes Bone cancer Mother Diabetes Social History Housing: House Alcohol intake: never Patient Tobacco Use Status: Former Tobacco user Tobacco use type: Cigarette Years Smoked: 2 years e-Cigarette/Vaping Use: Never Used Second Hand Smoke Exposure: No service: No Current occupational status: disabled Cognitive needs: Yes Hearing needs: Yes Vision needs: Yes Physical Exam Vital Signs: Last Vital Signs Pulse 69 10/06/24 14:24 BP 116/78 10/06/24 14:24 Quality Reporting (2019) Adult ([facility] 138/11/15/68) Smoking risk assessment performed?: Yes Patient Tobacco Use Status: Former Tobacco user Assessment & Plan Assessment & Plan (1) Osteoporosis: Code(s): M81.0 - Age-related osteoporosis without current pathological fracture Category: Medical Qualifiers: Osteoporosis type: age-related Presence of current pathological fracture: without current pathological fracture Qualified Code(s): M81.0 - Age- related osteoporosis without current pathological fracture Plan: 63-year-old female her today for initial evaluation of osteoporosis. Diagnosed with osteoporosis in January 2024 on bone density scan which showed severe osteoporosis of the hip T-score of-4.4 at the left femoral neck and-5.1 at the total hip. Normal bone density of the spine. She has never been on therapy for osteoporosis before this was her 1st bone density scan. High-risk factors for osteoporosis include immobility due to neurologic disorder in the lower limbs, postmenopausal, age, long-term steroid used in the past for autoimmune neurologic condition, poor nutritional intake of calcium. She also saw a Rheumatology recently, and her blood work from May 2024 showed low phosphorus of 2.3, normal calcium of 9.7 with albumin of 3.8, vitamin-D of 5.5, PTH mildly elevated at 81.4. Normal kidney function. Phosphorus levels subsequently normalized, likely she had diarrhea at the time of that workup. Labs from 09/02/2024 showed that her phosphorus level normalized to 3.1. Other secondary workup for osteoporosis also unremarkable, normal calcium of 9.5, with albumin of 4, normal ionized calcium of 5.4, normal magnesium level. Normal thyroid function. Vitamin-D level of 51.9. Normal kidney function with a EGFR greater than 60. CTX level of 340, showing that resorption is not that high, she would rather benefit from an anabolic agent. Bone specific alkaline phosphatase level of 15.4. 24 hour urine calcium on the lower side at 43 as well as low 24 hour urine phosphorus. Likely due to poor nutritional intake calcium and phosphorus. I discussed conservative measures including adequate calcium intake, adequate vitamin D levels as well as the role of weightbearing exercises in general being good for bone health. Given she does not have mobility in her lower limbs, we briefly discussed role of resistance training on lower extremity muscles, patient is has been was with her during this visit in suggested a [id number] exercise machine. In addition to conservative management with calcium and vitamin D; I do believe she would benefit from osteoporosis therapy in terms of reducing future fracture risk. Given severity of osteoporosis in the hip, she would benefit from an anabolic agent. While Tymlos and Fortjocyo do not have very strong data for improvement in bone density at the hip, Evenity has shown improvement in bone density by 12% in the spine and 5% in the hip. I counseled regarding the mechanism of action, route of administration, common side effects as well as black box warnings particularly osteonecrosis of the jaw and atypical femur fracture. Pros and cons discussed including black box warning of increased cardiac events 1% absolute risk -He has not had a cardiac event or stroke and she is relatively in good shape I.e. no hypertension hyperlipidemia or diabetes -Other side effects of arthralgia headaches hypocalcemia discussed Osteonecrosis of the jaw and atypical femur fracture is un likely Plan: -start Evenity 210 mg monthly injection for 12 months' course -continue vitamin-D 2000 units daily -improve nutritional intake of calcium to accommodate at least 800-1000 mg in a day -try for weight-bearing exercise on the lower limbs with resistance bands -follow up in 6 months with blood work -next bone density would be due January 2026 - Plan I spent 30 minutes in reviewing the record, seeing the patient and documenting in the medical record. Orders: Orders Calcium 6 Months M81.0 - Age-related osteoporosis without current pathological fracture Albumin Level 6 Months M81.0 - Age-related osteoporosis without current pathological fracture Basic Metabolic Panel 6 Months M81.0 - Age-related osteoporosis without current pathological fracture Alkaline Phosphatase Bone 6 Months M81.0 - Age-related osteoporosis without current pathological fracture Collagen Type I C-Telopeptide 6 Months M81.0 - Age-related osteoporosis without current pathological fracture Medications: New Evenity (romosozumab-aqqg) KYUNG 0 210 mg subcutaneously; every month for 12 months 2.34 mL 12RF NS Patient Instructions: We plan to start you on Evenity ( ROMOSOZUMAB) Continue vitamin D 2000 units daily 1000 mg of calcium in diet daily Follow up in 6 monhts with repeat labs a week prior Pros and cons discussed including black box warning of increased cardiac events 1% absolute risk -He has not had a cardiac event or stroke and she is relatively in good shape I.e. no hypertension hyperlipidemia or diabetes -Other side effects of arthralgia headaches hypocalcemia discussed Osteonecrosis of the jaw and atypical femur fracture is un likely Coding Level of Care Code Est Pt Level 4 (03296) Diagnoses Age-related osteoporosis without current pathological fracture M81.0 Osteoporosis type: age-related Presence of current pathological fracture: without current pathological fracture Time Spent (min) 30
== END 2024-10-06 15:16 | disposition home or self-care (01) ==
PROVIDERS: PCP Internal Medicine; Visit Provider Student in an Organized Health Care Education/Training Program
DX: M81.0 Age-related osteoporosis without current pathological fracture (principal)
CPT/HCPCS: 99214

== ENCOUNTER → 2024-10-06 14:23 | Outpatient (BNVA) | payer MEDICARE, BC, SELFPAY | PROVIDERS: PCP Internal Medicine; Visit Provider Student in an Organized Health Care Education/Training Program | DX: M81.0 Age-related osteoporosis without current pathological fracture (principal) | CPT/HCPCS: 99212 ==

== ENCOUNTER 2024-11-25 13:54 | Outpatient (AMB) | payer MEDICARE, MEDICAID, SELFPAY ==
[2024-11-25 14:01] VITALS: BP 90/58; PULSE 83; O2SAT 99
--- NOTE | 2024-11-25 14:01 | MHC.OFFVIS ---
Vital Signs 11/25/24 14:01 Weight 160 lb BP 90/58 L Blood Pressure Location Rt brachial Position Sitting Pulse 83 Pulse Source Pulse Oximeter Pulse Oximetry (%) 99 Oxygen Delivery Method Room Air Intake Visit Reasons: Asthma Allergies blackberry Allergy (Severe, Verified 11/25/24 14:06) Rash and Hives lanolin Allergy (Severe, Verified 11/25/24 14:06) Rash and Hives latex [LATEX] Allergy (Severe, Verified 11/25/24 14:06) RASH Sulfa (Sulfonamide Antibiotics) [SULFA (SULFONAMIDE ANTIBIOTICS)] Allergy (Severe, Verified 11/25/24 14:06) JUANDICE tree nut [TREE NUT] Allergy (Severe, Verified 11/25/24 14:06) ANAPHYLAXIS rasberries Allergy (Severe, Uncoded 11/25/24 14:06) Rash and Hives Tetanus Allergy (Severe, Uncoded 11/25/24 14:06) Rash and Hives Medication List - Last Reconciled 11/25/24 by Stephenie Magallanes LPN albuterol sulfate 90 mcg/actuation 2 puffs inhalation Q6H PRN albuterol sulfate 1.25 mg (3 mL) inhalation QID ascorbate calcium (vitamin C) 500 mg PO DAILY baclofen 10 mg PO TID baclofen 20 mg PO BEDTIME cholecalciferol (vitamin D3) 50 mcg PO DAILY clindamycin phosphate 1 supp vaginal BEDTIME 3 days kczovcrhy-Ir-suomr-mushroomcmb [phone] eu-mlb-bs-mg tabs PO diaper,brief,adult,disposable Size large disposable gloves As directed epinephrine IM DIRECTED Evenity (romosozumab-aqqg) KYUNG 0 210 mg subcutaneously; every month for 12 months NS gel dressing (Skintegrity Hydrogel topical) As directed applied to wound daily magnesium gluconate 30 mg PO DAILY methenamine hippurate 1 g PO BID midodrine 5 mg PO TID 30 days multivitamin 1 tab PO DAILY nebulizers As directed omega-3 fatty acids 500 mg PO DAILY peg 400-propylene glycol 0.4-0.3 % (Systane Gel) 1 drp ophthalmic (eye) BEDTIME 30 days quetiapine (Seroquel) 25 mg PO TID 90 days rituximab (Rituxan) IV [robu cushion As directed] sertraline 50 mg PO DAILY underpads As directed [wheelchair motorized with Roku cushion As directed] zinc gluconate 15 mg PO DAILY HPI Comments Details: The patient is a 64 y/o woman with 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 The patient is wheelchair-bound. Currently has a number [address] She is starting to have some neck irritation related to a small area of granulation tissue. This is because the trach tends to rubbing her skin since is loose. She understands that she has to keep it nice and firm to her skin to avoid movement. The patient continues to have episodes of shortness of breath. She has tried to go back on her ventilator for work of breathing, but does not tolerate it any longer. Due to her worsening symptoms, significant restrictive lung disease and decreased forced vital capacity the patient needs to be on noninvasive ventilatory therapy. Therefore, I will need to establish her on noninvasive therapy with sip and puff. She has continued to use the percussion vest with good effect for mucous secretions. At this point her tracheostomy is plugged. No plans for decannulation at this time. Will continue to monitor her progression of her neuromucolar disease. 06/03/2020 the patient has a telephone visit. Overall she is doing well from a respiratory status. After the closure of the tracheostomy she has had a stronger voice in a stronger cough per the patient. The patient has been sleeping well. She usually sleeps without any assistance. Although, she does have a noninvasive ventilator that she can use if she develops any worsening respiratory capacity. In the mornings she may use the sip and puff device to offer increase expansion of her lungs and also offer gas exchange. Patient also has a percussion vest that she uses for mucus clearance and pulmonary toilet. This time she is scheduled to undergo surgery for a decubital ulcer and placement of a flap. She is going to be admitted to [facility]. The patient does have increased risk for perioperative pulmonary complications due to her neuromuscular disease which include: Atelectasis, hypoxia, hypercarbia, pneumonia, and prolonged mechanical ventilation. 09/03/2020 the patient has a telephone visit today. Overall she is doing well. She was discharged from [facility] multiple weeks while recovering from her surgery. At home she has been doing well. She continues use her percussion vest. She uses that daily. She has not required a sip and puff. She still has chronic respiratory failure due to her neuromuscular disease. Therefore she needs to have the noninvasive ventilator to minimize hypercarbia and worsening respiratory failure. She has been doing well after the decannulation. She was wondering about the vaccine. I explained to her that we have to get more information. She is immunocompromised we have to wait for the safety recommendations from the FDA. Otherwise patient is without any other complaints. 12/16/2020 the patient has a telephone visit. Overall the patient has been doing relatively okay. She has been having increasing shortness of breath specially in the morning. She feels chest tightness. She does use her short-acting beta agonist with improvement in her shortness of breath. She does have a nebulizer that she uses well. In the meantime she has been using her noninvasive ventilator a little more at nighttime because of it. She is also using the sip and puff during the daytime. Sometimes she does have some issues with her mask. Recently [facility] sent over respiratory therapist and there were able to adjust her machine and her mask she was very appreciated. At this point will optimize her respiratory therapy to treat her for the obstructive airway component with both albuterol and budesonide. The meantime will reassess the patient in the next 6 weeks with a chest x-ray to make sure that she is improving. 01/21/2021 the patient has a telephone visit today. Overall the patient is doing well. Her shortness of breath has improved. She responded well to the albuterol with budesonide treatments. She has been using her noninvasive ventilator primarily to the sip and puff. This has been affecting beneficial. However, she gets very dry. I will talk to Moises by adding a humidifier so she can not tolerated better. In the meantime she does use a percussion vest for CPT with very good effect. She has not undergoing the chest x-ray as of yet. But she plans to do it when his safer for her to leave the house and go to a clinic or to a diagnostic center. If the patient is stable she can not wait to the next visit to have her x-ray prior to the visit otherwise she can have it done sooner. 03/03/2022 the patient is here for a pulmonary follow-up visit. Since we spoke the patient did develop COVID-19. The patient did have increased chest congestion. She was using the percussion vest with very good response. Sometimes she still had a hard time expectorating the phlegm that will get stuck in the middle of her chest and that was concerning to her . We did talk about considering a cough assist device. Specially if there is progressive worsening of her neuromuscular disease. She continues to follow closely by Neurology although that person may change. She has been on rituximab. I believe she is going to receive the next does coming up soon. The patient is sleeping well and she does not require any noninvasive therapy. Will have her undergo blood work including a venous gas to assess her CO2. 08/25/2022 the patient is here for a pulmonary follow-up visit. Overall the patient has been doing well. Her breathing has been back to her baseline. Denies any chest congestion. When she did have COVID at the patient was using the percussion vest more regularly. This has affecting beneficial. She was also using her nebulized therapy. Now she is back to her baseline. She is sleeping well. She is waking up rested. The patient did have a blood gas done back in the spring demonstrating normal pCO2. Plan to repeat the CO2 again in the spring. she is scheduled to have a repeat Rituxan does sometime in the next couple months. Will plan to have her undergo blood work including IgG level during her next visit to make sure that the rituximab is not resulting significant immunodeficiencies. 02/22/2023 the patient is here for a pulmonary follow-up visit. She continues to do well. Has not had any respiratory complaints. She has been performing the chest PT with percussion vest on a regular basis. She has been sleeping well without any oxygen. The patient's last blood gas was reassuring. She was supposed to have a blood gas this time around but clinically the patient is doing well and therefore we can hold off. She is getting her Rituxan every 6 months with good response. The only infections she has had from her condition is UTI so. She does have a catheter. Still however, no evidence of any significant immunodeficiency based on the Rituxan therapy. Will plan to follow-up in 8-12 months unless the patient develops any worsening symptoms. 03/17/2024 the patient is here for a pulmonary follow-up visit. She continues to do extremely well from a respiratory status. The Rituxan has been significantly helpful in holding any further decompensation from a respiratory status. She has been able to be off the ventilator. The patient also has a strong cough and is able to clear secretions on her own. She does want to get stronger. At this point will plan to request pulmonary function studies and she will be a great candidate for pulmonary rehabilitation to help her with her chronic restrictive lung disease for neuromuscular disease. In addition to that I did give the website that she can look for on the online rehab to look for additional resources. 11/25/2024 the patient is here for a pulmonary follow-up visit. The patient overall has been doing well. She has been getting stronger. The patient continues on Rituxan per Neurology. She is due to receive the next dose mid November. Therefore will try to facilitate her vaccines before the next dose. She will get her Prevnar 20 vaccine today and she can get her flu shot next week. Otherwise after her Rituxan she may not respond to antibiotics. She continues to sleep well without any oxygen or noninvasive ventilation. Her last chemistry demonstrated a normal bicarb suggesting no evidence of any hypercarbia which is extremely reassuring. Otherwise the patient is without any other complaints. 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 Thigh shingles Vegetarian diet COVID-19 Diarrhea Edema of right foot Asthma-COPD overlap syndrome Breast pain, left Decubitus ulcer, stage 4 Mild depression Wheelchair bound Hypovitaminosis D B12 deficiency Muscle spasm Idiopathic hypotension Neuromyelitis Surgical History Tracheostomy status Status post insertion of percutaneous endoscopic gastrostomy (PEG) tube History of lipoma Family History Father Diabetes Bone cancer Mother Diabetes Social History Housing: House Alcohol intake: never Patient Tobacco Use Status: Former Tobacco user Tobacco use type: Cigarette Years Smoked: 2 years e-Cigarette/Vaping Use: Never Used Second Hand Smoke Exposure: No service: No Current occupational status: disabled Cognitive needs: Yes Hearing needs: Yes Vision needs: Yes Review of Systems Const Denies difficulty sleeping and Reports weakness Eyes Reports no additional complaints, Denies change in vision and Denies other visual disturbances ENT Denies change in voice Card Denies chest pain at rest, Denies chest pain with activity, Denies edema, Denies irregular heart rhythm, Denies claudication, Denies dyspnea, Denies dyspnea on exertion, Denies orthopnea, Denies paroxysmal nocturnal dyspnea and Denies slow heart rate Resp Denies cough, Denies dyspnea and Denies dyspnea on exertion GI Denies abdominal pain, Denies change in bowel habits, Denies excessive flatus, Denies nausea and Denies vomiting Reports as per HPI Musc Reports abnormal gait, Reports atrophy, Reports limited range of motion, Reports muscle cramps and Reports muscle weakness Skin/Breast Denies bleeding lesions, Denies changing lesions and Denies rash Neuro Reports as per HPI, Reports abnormal gait, Denies behavioral changes, Denies lack of coordination, Reports weakness and Reports other (wheelchair) Psych Denies behavioral changes Endo Denies cold intolerance Romeo/Lymph Denies easy bleeding and Denies easy bruising Aller/Immun Denies urticaria Physical Exam Vital Signs: Last Vital Signs Pulse 83 11/25/24 14:01 BP 90/58 L 11/25/24 14:01 Pulse Ox 99 11/25/24 14:01 Oxygen Delivery Method Room Air 11/25/24 14:01 Eyes General: appearance normal, both eyes and all related structures Eyelids: Yes eyelids normal Conjunctivae: conjunctivae normal Neck Neck: Yes normal visual inspection, Yes supple and Yes other (trach site closed) Chest Chest palpation & inspection: normal inspection of the chest Resp Effort & Inspection: normal respiratory effort Auscultation: diminished lung sounds Cardio Jugular venous distension: no JVD Rate: regular rate Rhythm: regular rhythm Heart sounds: S1 normal heart sound present and S2 normal heart sound present Immunizations pneumoc 20-beau conj-dip cr(PF) 0.5 mL IM syringe Performing Provider: Rc Rueda MD [place] [facility] Administered by: Stephenie Magallanes LPN on 11/25/24 14:32 Dose Route Admin Location Dispensed Lot Number Expiration Date [facility] Practice Manager 0.5 mL IM Right Deltoid 0.5 mL [id number] 02/21/26 [employer]PFIZER VIS Given Date VIS Provided VIS Publication Date 11/25/24 Single Vaccine 23 Eligibility Eligibility Date Funding Source Not 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: Code(s): J98.4 - Other disorders of lung; G71.00 - Muscular dystrophy, unspecified Category: Medical (3) Asthma-COPD overlap syndrome: Code(s): J44.9 - Chronic obstructive pulmonary disease, unspecified Category: Medical Plan Continue nebulized therapy twice a day CPT with percussion vest F/U 8-12 months or sooner if any worsening symptoms Orders: Orders Pneumococcal 20 Immunization Today Z23 - Encounter for immunization Coding Level of Care Code Est Pt Level 4 (46903) Complex EM visit Add On G2211 Diagnoses Neuromyelitis G36.9 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
--- OUTSIDE RECORDS SUMMARY | 2024-11-25 17:32 | XMS_ITS | Clinical Summary ---
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 Anaphylaxis High 02/04/2020 Lanolin Rash Low 10/10/2016 Latex Rash Low 10/10/2016 Levofloxacin Unknown 12/13/2017 Pt unsure at this time Pepper (Genus Capsicum) 11/01/2022 pain Raspberry Anaphylaxis High 02/04/2020 Silk Rash Low 02/04/2020 Sulfa (Sulfonamide Antibiotics) Unknown High 05/13/2013 Causes jaundice , effects liver function Tree Nuts Anaphylaxis High 11/20/2022 Medications amitriptyline (ELAVIL) 25 mg tablet 3 po hs 90 each 5 4 Active albuterol HFA (PROAIR HFA ; PROVENTIL HFA ; VENTOLIN HFA) 90 mcg/actuation inhaler Inhale 2 puffs by mouth every 4 (four) hours if needed for wheezing or shortness of breath. Active albuterol 1.25 mg/3 mL nebulizer solution Take 3 mL (1.25 mg total) by nebulization 4 (four) times a day. 4 Active baclofen (LIORESAL) 20 mg tablet Take 0.5 tablets (10 mg total) by mouth 3 (three) times a day. 10mg in the morning and afternoon, 20mg at night 3 Active cholecalciferol (VITAMIN D-3) 25 mcg (1,000 unit) tablet Take 2 tablets (2,000 Units total) by mouth 1 (one) time each day. Active cyanocobalamin (VITAMIN B-12) 2,500 mcg tablet Take 1 tablet (2,500 mcg total) by mouth 1 (one) time each day. Active EPINEPHrine (EPIPEN) 0.3 mg/0.3 mL injection Inject 0.3 mL (0.3 mg total) into the thigh if needed for anaphylaxis. Active loperamide (IMODIUM) 2 mg capsule Take 1 capsule (2 mg total) by mouth 3 (three) times a day if needed for diarrhea. 4 Active medroxyPROGESTE Ismael (PROVERA) 10 mg tablet Take 1 tablet (10 mg total) by mouth 1 (one) time each day. Active methenamine hippurate (HIPREX) 1 gram tablet Take 1 tablet (1 g total) by mouth 2 (two) times a day with meals. Active botulinum toxin Type A (Botox) 100 unit recon soln injection 100 Units by Other route 1 (one) time. Every 6 months in bladder Active QUEtiapine (SEROquel) 25 mg tablet Take 1 tablet (25 mg total) by mouth 3 (three) times a day. Active riTUXimab (RITUXAN) 10 mg/mL injection Infuse 1 mL (10 mg total) into a venous catheter 1 (one) time. Every 6 month Active sertraline (ZOLOFT) 50 mg tablet Take 1 tablet (50 mg total) by mouth 1 (one) time each day. Active ascorbic acid (VITAMIN C) 500 mg tablet Take 1 tablet (500 mg total) by mouth 2 (two) times a day. Active magnesium gluconate 30 mg (550 mg) tablet Take 1 tablet by mouth 2 (two) times a day. Active multivitamin with minerals (CENTRUM/CERTAV IT) 18-400 mg-mcg tablet tablet Take 1 tablet by mouth 1 (one) time each day. Active fish,bora,flax oils-om3,6,9no1 (Stoddard 3-6-9) 1,200 mg capsule Take 1,200 mg by mouth 1 (one) time each day. Active zinc sulfate 66 mg tablet Take 66 mg by mouth 1 (one) time each day. Active metroNIDAZOLE (METROGEL) 1 % gel Apply 1 Application topically 1 (one) time each day. Apply to vagina Active calcium citrate (CALCITRATE) 950 mg (200 mg elemental calcium) tablet Take 1 tablet (950 mg total) by mouth 1 (one) time each day. Active Active Problems Problem Noted Date Diagnosed Date Pressure ulcer of right buttock, stage 3 024 Neuromyelitis optica spectrum disorder Overview (09/01/2024): DX:Neuromyelitis optica spectrum disorder (HCC) Encounters Date Type Department Care Team Description 11/10/2024 2:00 PM EST Office Visit [facility] [address] [place] [phone] Gladys Tomas MD Pressure ulcer of right buttock, stage 3 (CMS/HCC) (Primary Dx); Neuromyelitis optica spectrum disorder (CMS/HCC) 11/03/2024 Telephone [facility] [address] [phone] Charlie Grigsby MD RUXIENCE AUTH RQST; AUTH RECVD 09/15/2024 2:15 PM EST Office Visit [facility] [address] [place] [phone] Gladys Tomas MD Pressure ulcer of right buttock, stage 3 (CMS/HCC) (Primary Dx); Neuromyelitis optica spectrum disorder ([facility]/HCC) 09/01/2024 12:45 PM EST Office Visit [facility] [address] [place] [phone] Gladys Tomas MD Pressure ulcer of right buttock, stage 3 (CMS/HCC) (Primary Dx); Neuromyelitis optica spectrum disorder (CMS/HCC) 09/01/2024 Telephone [facility] [address] [place] [phone] Rosi Hidalgo RN Wound Care from Last 3 Months Surgical History Surgery Date Site/Laterality Comments OTHER SURGICAL HISTORY PROCEDURE:LEG WOUND REPAIR / CLOSURE TRACHEOSTOMY TUBE PLACEMENT 10/25/2019 - 11/22/2019 TRACHEOSTOMY CLOSURE 03/24/2020 - 04/23/2020 OTHER SURGICAL HISTORY Coccyx removal OTHER SURGICAL HISTORY Melanoma removal Medical History Medical History Date Comments Neuromyelitis optica spectru m disorder ([facility]) DX:Neuromyelitis optica spec trum disorder ([facility]) Arthritis DX:Arthritis TMJ (dislocation of temporom andibular joint) DX:TMJ (dislocation of tempo romandibular joint) Migraines DX:Migraines Melanoma ([facility]) DX:Melanoma ( HCC) Tinnitus Osteoporosis GERD (gastroesophageal reflux disease) COPD (chronic obstructive pu lmonary disease) ([facility]) Family History Medical History Relation Name Comments Cancer Father Diabetes Father Diabetes Mother Stroke Mother Cancer Paternal Grandfather Stroke Paternal Grandmother Cancer Son Multiple sclerosis Neg Hx Relation Name Status Comments Father Mother Paternal Grandfather Paternal Grandmother Son Social History Tobacco Use Types Packs/Day Years Used Date Smoking Tobacco: Former Cigarettes Q uit: 05/10/1979 Smokeless Tobacco: Never Alcohol Use Standard Drinks/Week Comments No 0 (1 standard drink = 0.6 oz pur e alcohol) Comments Unknown Sex and Gender Information Value Date Recorded Sex Assigned at Not on file Legal Sex Female 2:31 PM EST Gender Identity Not on file Sexual Orientation Not on file Obstetrics History Last Filed Vital Signs Vital Sign Reading Time Taken Comments Blood Pressure 90/62 11/10/2024 2:14 PM EST Pulse 85 11/10/2024 2:14 PM EST Temperature 36.7 ??C (98.1 ??F) 11/10/2024 2:14 PM ES T Respiratory Rate 16 11/10/2024 2:14 PM EST Oxygen Saturation 99% 11/10/2024 2:14 PM EST Inhaled Oxygen Concentration - - Weight 70.3 kg (155 lb) 09/15/2024 3:13 PM EST Height 172.7 cm (5' 8 ) 09/01/2024 1:04 PM EST Body Mass Index 23.57 09/01/2024 1:04 PM EST Plan of Treatment Upcoming Encounters Date Type Department Care Team (Late st Contact Info) Description 12/09/2024 10:[address] [facility] [address] [place] [phone] Health Maintenance Due Date Last Done Comments Breast Cancer Screening 1959 COVID-19 Vaccine (#1) 1964 DTaP,Tdap,and Td Vaccines (1 - Tdap) 1978 Hepatitis A Vaccines (1 of 2 - Risk 2-dose series) 1978 Zoster Vaccines (1 of 2) 1978 Cervical Cancer Screening: Pap Smear 1980 Pneumococcal Vaccine: 50+ Years (2 of 2 - PCV) 07/08/2010 07/08/2009 Pneumococcal Vaccine: Pediatrics (0 to 5 Years) and At-Risk Patients (6 to 64 Years) (2 of 2 - PCV) 07/08/2010 07/08/2009 Hepatitis B Vaccines (1 of 3 - Risk 3-dose series) 2019 RSV Immunization Patients 60+ Years Old (1 - Risk 60-74 years 1-dose series) 2019 Cholesterol Screening (Lipid Panel) 09/02/2022 Colorectal Cancer Screening: Colonoscopy 09/02/2022 Depression Screening 09/02/2022 Hepatitis C Screening 09/02/2022 Medicare Annual Wellness Visit 09/02/2022 Osteoporosis Screening (Bone Density Screening) 09/02/2022 Social Influencers of Health Screening 09/02/2022 Influenza Vaccine (#1) 2024 2, 08/25/2015, 06/24/2014, Additional history exists Falls Risk Assessment 11/10/2025 11/10/2024 HIB Vaccines Aged Out No longer eligi ble based on patient's age to complete this topic HPV Vaccines Aged Out No longer eligi ble based on patient's age to complete this topic IPV Vaccines Aged Out No longer eligi ble based on patient's age to complete this topic MMR Vaccines Aged Out No longer eligi ble based on patient's age to complete this topic Meningococcal ACWY Vaccine Aged Out N o longer eligible based on patient's age to complete this topic Meningococcal B Vacine Aged Out No lo nger eligible based on patient's age to complete this topic RSV Immunization Patients Under 20 months Aged Out No longer eligible based on patient's age to complete this topic Varicella Vaccines Aged Out No longer eligible based on patient's age to complete this topic Goals Goal Patient Goal Type Associated Problems Recent Progress Patient-Stated? Author Wound volume breakdown reduced by X% by week 4 Care Plan Impaired Tissue No Marielos Malagon RN Wound volume breakdown reduced by X% by week 8 Care Plan Impaired Tissue No Marielos Malagon RN Wound volume breakdown reduced by X% by week 12 Care Plan Impaired Tissue Marielos Brice RN Quit using tobacco (cigarettes, smokeless, etc) Care Plan Education needed on impact of smoking on wound Marielos Brice RN Reduce tobacco use (cigarettes, smokeless, etc) Care Plan Education needed on impact of smoking on wound Marielos Brice RN Decrease Wound Volume by X% by date (in notes) Care Plan Education needed on impact of smoking on wound Marielos Brice RN Patient and Caregiver Understand Wound Care Education Care Plan Education needed related to ulceration/compr omised skin integrity. Marielos Brice RN Procedures Procedure Name Priority Date/Time Associated Diagnosis Comments DEBRIDEMENT Routine 09/01/2024 12:45 PM EST Pressure ulcer of right buttock, stage 3 (CMS/HCC) Neuromyelitis optica spectrum disorder (CMS/HCC) from Last 3 Months Results * Debridement Pressure Injury Right;Distal;Other (Comment) (fold) Buttocks (09/01/2024 12:45 PM EST) Narrative Gladys Tomas MD - 09/01/2024 12:45 PM EST Gladys Tomas MD ? 09/01/2024 ??3:23 PM Debridement Pressure Injury Right;Distal;Other (Comment) (fold) Buttocks Performed by: Gladys Tomas MD Authorized by: Gladys Tomas MD ?? Associated wounds: Wound Pressure Injury 08/02/24 Buttocks Right;Distal;Other (Comment) Consent: ??Consent obtained: ??Verbal ??Consent given by: ??Patient ??Risks discussed: Yes ?? Time out: Immediately prior to the procedure a time out was called ?? Time out performed at: ??09/01/2024 2:05 PM Debridement Details: ??Performed by: ??Physician ??Type: selective ?Pain control: ??None ??Severity of Tissue Pre Debridement: ??Fat layer exposed ??Severity of Tissue Post Debridement: ??Fat layer exposed ??Length (cm): ??0.7 ??Width (cm): ??0.5 ??Depth (cm): ??0.2 ??Area (cm^2): ??0.35 ??Length (cm): ??0.7 ??Width (cm): ??0.5 ??Depth (cm): ??0.2 ??Percent Debrided (%): ??100 ??Surface Area (cm^2): ??0.35 ??Area Debrided (cm^2): ??0.35 ??Volume (cm^3): ??0.07 ??Devitalized tissue debrided: fibrin and slough ?Instrument: ??Blade and forceps ??Amount of bleeding: small ?Hemostasis obtained with: ??Pressure ??Procedural pain: ??0 ??Post-procedural pain: ??0 ??Response to treatment: ??Procedure was tolerated well us Gladys Tomas MD IN CLINIC/BEDSIDE ORDERAB LES Final Result from Last 3 Months Additional Health Concerns Active Problems Noted Date Diagnosed Date Impaired Tissue 09/01/2024 Education needed on impact of smoking on wound 1 11/02/2023 Education needed related to ulceration/compromised skin integrity. 09/01/2024 Insurance MEDICARE MEDICA[place] - [place] [facility] Care Teams Diesel Stationary Engineer Relationship Specialty Start Date End Date Parul Sexton MD [address] [facility] , [address] [facility] D/B/A: [facility] ARIADNE Coreas PCP - General 04/06/22
--- OUTSIDE RECORDS SUMMARY | 2024-11-25 17:32 | XMS_ITS | Encounter Summary ---
Author Organization [facility] [place] [address] Care Team Providers Care Mail Handler Equipment Operator Name Role Phone Parul Sexton MD Primary Care Provider [phone] Reason for Visit * Reason Onset Date Comments RUXIENCE AUTH RQST 11/03/2024 AUTH RECVD 11/10/2024 Encounter Details Date Type Department Care Team (Late st Contact Info) Description 11/03/2024 Telephone [facility] - [place] [address] [facility] [address] [place] [phone] Charlie Grigsby MD [address] [facility] [address] [place] [phone] RUXIENCE AUTH RQST; AUTH RECVD Social History Tobacco Use Types Packs/Day Years [...] on file Sexual Orientation Not on file documented as of this encounter Progress Notes * Jaye Mora - 11/10/2024 11:35 AM EST 11/10/24- Per [facility]- [id number], auth #[id number], 998 days, 11/17/24-11/16/25, BUY & BILL ([facility]). * Jaye Mora - 11/03/2024 12:45 PM EST Per Poly @ [facility]- auth is not reqrd because Medicare is primary, but if Medicare doesn't pay, will need to have an auth in place with [facility] (call #[phone]). Ruxience auth rqst submitted online, [facility] ARIADNE- pending. documented in this encounter Plan of Treatment Upcoming Encounters Date Type Department Care Team (Late st Contact Info) Description 12/09/2024 10:[address] [facility] [address] [place] [phone] documented as of this encounter Goals Goal Patient Goal Type Associated Problems [...] needed related to ulceration/compr omised skin integrity. No Marielos Malagon RN documented as of this encounter Visit Diagnoses Not on filedocumented in this encounter Additional Health Concerns Active Problems Noted Date Diagnosed Date Impaired Tissue 09/01/2024 Education needed on impact of smoking on wound 1 11/02/2023 Education needed related to ulceration/compromised skin integrity. 09/01/2024 documented as of this encounter Care Teams Mail Handler Equipment Operator Relationship Specialty Start Date End Date Parul Sexton MD [address] [place] [address] , [address] [facility] D/B/A: [facility] [place] PCP - General 04/06/22 documented as of this encounter
--- OUTSIDE RECORDS SUMMARY | 2024-11-25 17:32 | XMS_ITS | Clinical Summary ---
Author Organization [facility] Address [address] [place] [address] Care Team Providers Care Poising Inspector Name Role Phone Parul Vieira MD Primary Care Provid er Allergies Active Allergy Reactions Criticality Noted Date Comments Blackberry Anaphylaxis High 05/10/2022 Coconut Anaphylaxis High 02/04/2020 Hydrolyzed Silk Rash Low 02/04/2020 Lanolin Rash Low 10/10/2016 Latex Rash Low 10/10/2016 Levofloxacin Other (See Comments) 12/13/2017 Pt unsure at this time Peppers 11/01/2022 pain Raspberry Anaphylaxis High 02/04/2020 Sulfa Antibiotics Other (See Comments) High 03/18/20 20 Causes jaundice , effects liver function Tree Nuts Anaphylaxis High 11/20/2022 Medications Medication Sig Dispensed Refills Start Date End Date Status QUEtiapine (SEROquel) 25 MG tablet Take 1 tablet (25 mg total) by mouth 2 (two) times a day. 0 Active sertraline (ZOLOFT) 50 MG tablet Take 1 tablet (50 mg total) by mouth daily. 0 Active midodrine (PROAMATINE) 5 MG tablet Take 1 tablet (5 mg total) by mouth 2 (two) times a day. 0 Active albuterol 108 (90 Base) MCG/ACT inhaler Inhale 2 puffs into the lungs daily. 0 Active methenamine (HIPREX) 1 g tablet Take 1 tablet (1 g total) by mouth 2 (two) times a day with meals. 0 Active vitamin D3 (VITAMIN D3) 25 MCG (1000 UT) tablet Take 2 tablets (2,000 Units total) by mouth daily. 0 Active Cyanocobalamin (B-12) 2500 MCG TABS Take 2,500 mcg by mouth daily. 0 Active ascorbic acid (VITAMIN C) 500 MG tablet Take 1 tablet (500 mg total) by mouth daily. 0 Active Multiple Vitamin (MULTIVITAMIN ADULT PO) Take by mouth. 0 Active EPINEPHrine 0.3 MG/0.3ML SOAJ See Instructions, Intramuscular Once for anaphylaxis reaction, # 2 each, 1 Refills, Soft Stop, 06/21/15 15:46:31, Intramuscular Once for anaphylaxis reaction 0 06/21/2015 Active botulinum toxin type A (Botox) 100 units SOLR injection Inject as directed every six months 0 Active riTUXimab (RITUXAN) 500 MG/50ML injection (10 mg/mL) Inject into the vein once. 0 Active Zinc Sulfate (ZINC 15 PO) Take by mouth. 0 Active Misc Natural Products (MAGIC MUSHROOM MIX PO) Take by mouth. 0 Acti ve Henderson-3-6-9 CAPS Take by mouth. 0 Acti ve magnesium gluconate (MAGONATE) 30 MG tablet Take 1 tablet (30 mg total) by mouth 2 (two) times a day. 0 Active baclofen (LIORESAL) 20 MG tablet 10mg morning and afternoon, 20mg at night 270 tablet 1 08/19/2023 Active medroxyPROGESTERo ne (PROVERA) 10 MG tablet Take 1 tablet (10 mg total) by mouth daily. 0 11/08/2023 Active amitriptyline (ELAVIL) tablet 25 mg Take 1 tablet (25 mg total) by mouth every night at bedtime. 90 tablet 3 02/12/2024 Active Active Problems Problem Noted Date Diagnosed Date Neuromyelitis optica (devic) 04/13/2022 Family History Medical History Relation Name Comments Multiple sclerosis Neg Hx Social History Tobacco Use Types Packs/Day Years Used Date Smoking Tobacco: Former Cigarettes Q uit: 05/10/1979 Smokeless Tobacco: Never Tobacco Cessation:Counseling Given: Not Answered Alcohol Use Standard Drinks/Week Comments No 0 (1 standard drink = 0.6 oz pur e alcohol) Sex and Gender Information Value Date Recorded Sex Assigned at Female 12/18/2023 3:34 PM EDT Gender Identity Not on file Sexual Orientation Not on file Job Start Date Occupation Industry Not on file Not on file Not on file Last Filed Vital Signs Vital Sign Reading Time Taken Comments Blood Pressure 113/67 06/11/2024 10:26 AM EDT Pulse 66 11/21/2023 10:43 AM EST Temperature 36.7 ??C (98 ??F) 06/11/2024 10:26 AM EDT Respiratory Rate 18 11/21/2023 10:43 AM EST Oxygen Saturation 99% 06/11/2024 10:26 AM EDT Inhaled Oxygen Concentration - - Weight 68 kg (150 lb) 08/23/2022 2:15 PM EST Height 172.7 cm (5' 8 ) 08/23/2022 2:15 PM EST Body Mass Index 22.81 08/23/2022 2:15 PM EST Plan of Treatment Health Maintenance Due Date Last Done Comments Hepatitis C Screening 1960 COVID-19 Vaccine (#1) 04/08/1960 Depression Screening 1971 Preventative Health Evaluation 1977 DTap / Tdap / Td (1 - Tdap) 1978 Cervical Cancer Screening (Pap Smear) 1980 Colon Cancer Screening (Colonoscopy) 2004 Breast Cancer Screening (Mammogram) 2009 Shingrix-Zoster Vaccine (1 of 2) 2009 Influenza Vaccine (#1) 2024 5, 06/24/2014, 07/21/2013, Additional history exists Fall Risk Assessment 2024 Osteoporosis Screening (DEXA Scan) 2024 Pneumococcal Vaccine (2 of 2 - PCV) 2024 07/08/2009 RSV Adult > 60+ Yrs or (1 - 1-dose 75+ series) 2034 Pneumococcal Vaccine Aged Out 07/08/2009 No long er eligible based on patient's age to complete this topic Hepatitis B Vaccines Aged Out No long er eligible based on patient's age to complete this topic RSV Ped < 20 months Aged Out No longe r eligible based on patient's age to complete this topic Care Teams Poising Inspector Relationship Specialty Start Date End Date Parul Vieira MD [address] [place] [address] , [address] [facility] D[facility] [place] [address] PCP - General Internal Medicine 04/06/22
--- OUTSIDE RECORDS SUMMARY | 2024-11-25 17:32 | XMS_ITS | Encounter Summary ---
Author Organization [facility] Address [address] [place] [address] Care Team Providers Care Parts Room Associate Name Role Phone Parul Sexton MD Primary Care Provider [phone] Reason for Visit * Reason Comments Wound Care Encounter Details Date Type Department Care Team (Late st Contact Info) Description 11/10/2024 2:00 PM EST Office Visit [facility] [address] [place] [phone] Gladys Tomas MD [address] [address] Pressure ulcer of right buttock, stage 3 (CMS/HCC) (Primary Dx); Neuromyelitis optica spectrum disorder (CMS/HCC) Social History Tobacco Use Types Packs/Day Years [...] on file documented as of this encounter Last Filed Vital Signs Vital Sign Reading Time Taken Comments Blood Pressure 90/62 11/10/2024 2:14 PM EST Pulse 85 11/10/2024 2:14 PM EST Temperature 36.7 ??C (98.1 ??F) 11/10/2024 2:14 PM ES T Respiratory Rate 16 11/10/2024 2:14 PM EST Oxygen Saturation 99% 11/10/2024 2:14 PM EST Inhaled Oxygen Concentration - - Weight - - Height - - Body Mass Index - - documented in this encounter Progress Notes * Marielos Malagon RN - 11/10/2024 2:00 PM EST PROVIDER ORDERS Discharge from Wound Care Services: Congratulations your wound is healed. No need for further follow up appointments. Keep an eye on the scarred area for any breakdown. Continue with frequent repositioning. If your wound reoccurs or you have any questions/concerns, please call the wound care center at for another appointment. * Gladys Tomas MD - 11/10/2024 2:00 PM EST Images from the original note were not included. [facility] [place] [address] Office Visit Visit Date: 11/10/2024 Patient Name: Vivi Ayala Date of : 1960 PCP: Parul Sexton MD HPI: Vivi is a 63 years old woman with history of neuromyelitis comes in for pressure ulcer right buttock stage III. She has been putting zinc oxide on it. Patient had pressure ulcer in that area [id number] and had musculocutaneous rotation flap done [facility]. She is primarily bed to chair.She does have a Roho cushion. Patient also has an indwelling Ernandez that is changed by visiting nurse every 3 weeks. She is accompanied by her . She has had no fever no chills. She had excision of coccyx done many years ago. Her blood pressure usually runs low in the around 80s systolic, she was on midodrine in the past, but she discontinued it because it makes her head itchy. She gets lightheaded on and off. Assessment and Plan: Pressure ulcer right buttock healed. Pressure ulcer of right buttock, stage 3 (CMS/HCC) (Primary) Neuromyelitis optica spectrum disorder (CMS/HCC) All questions were answered to her satisfaction. She was counseled regarding my impressions, instructions for management, and the importance of compliance with treatment. Follow up today (on 11/10/2024) for Healed. >>>>>>>>>>>>>>>>>>>>>>>>>>>>>>>>>>>>>>>>>>>>>>>>>>> Vital Signs: Visit Vitals BP 90/62 Pulse 85 Temp 36.7 ??C (98.1 ??F) Resp 16 Review of Systems: Review of Systems PHYSICAL EXAM alert, oriented x 3 lying in bed in no distress. HEENT normocephalic, sclera white, throat is clear, tongue midline no lesion. Lungs clear to auscultation. Heart regular rhythm no murmur or gallop. Extremities radial pulses palpable bilaterally normal pulses palpable bilaterally. Skin stage III pressure ulcer right buttock healed. Neuro. Paralysis Lower extremities, full range of motion of upper extremities WOUND ASSESSMENT If photograph of wound not visible on this note, please check under Media tab. Wound Pressure Injury 08/02/24 Buttocks Right;Distal;Other (Comment) (Active) Date First Assessed/Time First Assessed: 08/02/24 1325 Primary Wound Type: Pressure Injury Wound Approximate Age at First Assessment (Weeks): 7 weeks Hand Hygiene Completed: Yes Location: Buttocks Wound Location Orientation: (c) Right;Distal;Oth... Assessments 09/01/2024 1:26 PM 11/10/2024 2:29 PM Wound Image Wound Bed Tissue Assessment Granulation;Sloughing;Red;Yellow Epithelialization Mara-Wound Assessment Scarred;Intact;Dry Scarred Wound Length (cm) 0.7 cm 0 cm Wound Width (cm) 0.5 cm 0 cm Wound Surface Area (cm^2) 0.35 cm^2 0 cm^2 Wound Depth (cm) 0.2 cm 0 cm Wound Volume (cm^3) 0.07 cm^3 0 cm^3 Wound Healing % -- 100 Drainage Description Serosanguineous -- Drainage Amount Small None Treatments Cleansed Cleansed Dressing Other (Comment) Gauze Dressing Status -- Removed State of Healing -- Epithelialized Wound Bed Granulation (%) 50 % 0 % Wound Bed Epithelialization (%) -- 100 % Wound Bed Slough (%) 50 % 0 % Wound Bed Eschar (%) 0 % 0 % Tunneling 0 cm 0 cm Undermining 0 cm 0 cm Edges Attached edges;Well-defined edges -- Non-staged Wound Description Full thickness -- Pressure Injury Stage Stage 3 Stage 3 Inactive Orders Date Order Priority Status Authorizing Provider 09/01/24 1411 Debridement Pressure Injury Right;Distal;Other (Comment) (fold) Buttocks Routine Completed Gladys Tomas MD Debridement Note: PROVIDER ORDERS Patient Instructions PROVIDER ORDERS Discharge from Wound Care Services: Congratulations your wound is healed. No need for further follow up appointments. Keep an eye on the scarred area for any breakdown. Continue with frequent repositioning. If your wound reoccurs or you have any questions/concerns, please call the wound care center at for another appointment. 11/10/2024 5:10 PM EST Gladys Tomas MD documented in this encounter Plan of Treatment Upcoming Encounters Date Type Department Care Team (Late st Contact Info) Description 12/09/2024 10:00 AM EDT Appointment [facility] [address] [place] [phone] documented as of this encounter Goals Goal [...] needed on impact of smoking on wound No Marielos Malagon RN Patient and Caregiver Understand Wound Care Education Care Plan Education needed related to ulceration/compr omised skin integrity. No Marielos Malagon RN documented as of this encounter Visit Diagnoses Diagnosis Pressure ulcer of right buttock, stage 3 (CMS/HCC)- Primary Neuromyelitis optica spectrum disorder (CMS/HCC) documented in this encounter Historical Medications * This list may reflect changes made after this encounter. calcium citrate (CALCITRATE) 950 mg (200 mg elemental calcium) tablet Take 1 tablet (950 mg total) by mouth 1 (one) time each day. added in this encounter Additional Health Concerns Active Problems Noted Date Diagnosed Date Impaired Tissue 09/01/2024 Education needed on impact of smoking on wound 1 11/02/2023 Education needed related to ulceration/compromised skin integrity. 09/01/2024 documented as of this encounter Care Teams Parts Room Associate Relationship Specialty Start Date End Date Parul Sexton MD [address] [place] [address] , [address] [facility] D/B/A: [facility] [place] PCP - General 04/06/22 documented as of this encounter
== END 2024-11-25 14:32 | disposition home or self-care (01) ==
PROVIDERS: PCP Internal Medicine; Visit Provider Hospitalist
DX: G36.9 Acute disseminated demyelination, unspecified (principal); J98.4 Other disorders of lung; G71.00 Muscular dystrophy, unspecified; J44.9 Chronic obstructive pulmonary disease, unspecified; Z23 Encounter for immunization
CPT/HCPCS: 99214; G2211

== ENCOUNTER → 2024-11-25 13:54 | Outpatient (BNVA) | payer MEDICARE, MEDICAID, SELFPAY | PROVIDERS: PCP Internal Medicine; Visit Provider Hospitalist | DX: Z23 Encounter for immunization (principal); G36.9 Acute disseminated demyelination, unspecified; J44.9 Chronic obstructive pulmonary disease, unspecified; J98.4 Other disorders of lung; G71.00 Muscular dystrophy, unspecified | CPT/HCPCS: 90471; 90677; 99212 ==

== ENCOUNTER 2024-12-30 14:46 | Outpatient (AMB) | payer BC, MEDICARE, MEDICAID, SELFPAY ==
--- NOTE | 2024-12-30 15:09 | A.OFFPC_ITS ---
Vital Signs 12/30/24 15:12 BMI Reason not done Patient refused/unable BP 108/64 Blood Pressure Location Lt brachial Position Sitting Intake Visit Reasons: hypovtiaminosis d Dial Refinisher Required: No Accompanied by: Self / Same As Patient Allergies blackberry Allergy (Severe, Verified 12/30/24 15:19) Rash and Hives lanolin Allergy (Severe, Verified 12/30/24 15:19) Rash and Hives latex [LATEX] Allergy (Severe, Verified 12/30/24 15:19) RASH Sulfa (Sulfonamide Antibiotics) [SULFA (SULFONAMIDE ANTIBIOTICS)] Allergy (Severe, Verified 12/30/24 15:19) JUANDICE tree nut [TREE NUT] Allergy (Severe, Verified 12/30/24 15:19) ANAPHYLAXIS rasberries Allergy (Severe, Uncoded 12/30/24 15:19) Rash and Hives Tetanus Allergy (Severe, Uncoded 12/30/24 15:19) Rash and Hives Medication List - Last Reconciled 12/30/24 by Parul Sexton MD albuterol sulfate 1.25 mg (3 mL) inhalation QID albuterol sulfate 90 mcg/actuation 2 puffs inhalation Q6H PRN ascorbate calcium (vitamin C) 500 mg PO DAILY baclofen 10 mg PO TID baclofen 20 mg PO BEDTIME cholecalciferol (vitamin D3) 50 mcg PO DAILY clindamycin phosphate 1 supp vaginal BEDTIME 3 days upgtkdrgp-Zy-tpkps-mushroomcmb [phone] nz-rpr-zc-mg tabs PO cyanocobalamin (vitamin B-12) 1,000 mcg PO DAILY diaper,brief,adult,disposable Size large disposable gloves As directed epinephrine IM DIRECTED Evenity (romosozumab-aqqg) KYUNG 0 210 mg subcutaneously; every month for 12 months NS gel dressing (Skintegrity Hydrogel topical) As directed applied to wound daily magnesium gluconate 30 mg PO DAILY methenamine hippurate 1 g PO BID midodrine 5 mg PO TID 30 days multivitamin 1 tab PO DAILY nebulizers As directed omega-3 fatty acids 500 mg PO DAILY peg 400-propylene glycol 0.4-0.3 % (Systane Gel) 1 drp ophthalmic (eye) BEDTIME 30 days quetiapine (Seroquel) 25 mg PO TID 90 days rituximab (Rituxan) IV [robu cushion As directed] sertraline 50 mg PO DAILY underpads As directed [wheelchair motorized with Roku cushion As directed] zinc gluconate 15 mg PO DAILY Tobacco use date assessed: 12/30/24 Fall risk assessment: No Falls in past year Last assessed Fall Risk: 12/30/24 Dental Screening Dental Screen Date: 12/30/24 Did you have a dental visit in the last 12 months?: Yes Did you have a dental problem in the last 6 months where you did not have access to dental care?: No Was dental information given to patient?: Patient has dentist HPI HPI Comments History of Present Illness Details The patient is a 64-year-old female presenting for a follow-up on the management of multiple chronic conditions and dietary management. She has been diagnosed with neuromyelitis, which has severely affected her mobility, and she uses a wheelchair. Over time, she has regained partial movement in her hips but still has limited leg mobility. Sj?gren's syndrome accompanies her primary condition, contributing to dryness, particularly in her eyes. She maintains a gluten-free diet due to celiac disease, managing its symptoms by avoiding gluten and nightshades to reduce inflammation and pain. Her extensive dietary restrictions pose challenges due to her Urdu heritage, but adherence has resulted in an improvement in sensation and reduction in inflammatory symptoms. Allergies to several substances, including blackberry, lanolin, latex, sulfa, tree nuts, raspberries, and tetanus, have been identified, requiring strict avoidance. Her current medication regimen includes vitamin supplements and specific medications to manage her conditions, such as Rituxan and sertraline. She has restrictive lung disease and asthma-COPD overlap syndrome follow by pulmonology. 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 Thigh shingles Vegetarian diet COVID-19 Diarrhea Edema of right foot Asthma-COPD overlap syndrome Breast pain, left Decubitus ulcer, stage 4 Mild depression Wheelchair bound Hypovitaminosis D B12 deficiency Muscle spasm Idiopathic hypotension Neuromyelitis Surgical History Tracheostomy status Status post insertion of percutaneous endoscopic gastrostomy (PEG) tube History of lipoma Family History Father Diabetes Bone cancer Mother Diabetes Social History Housing: House Alcohol intake: never Patient Tobacco Use Status: Former Tobacco user Tobacco use type: Cigarette Years Smoked: 2 years e-Cigarette/Vaping Use: Never Used Second Hand Smoke Exposure: No service: No Current occupational status: disabled Cognitive needs: Yes Hearing needs: Yes Vision needs: Yes Questionnaire PHQ-9 Over the last 2 weeks, how often have you been bothered by any of the following problems? 1. Little interest or pleasure in doing things: not at all 2. Feeling down, depressed, or hopeless: not at all 3. Trouble falling or staying asleep, or sleeping too much: not at all 4. Feeling tired or having little energy: not at all 5. Poor appetite or overeating: not at all 6. Feeling bad about yourself - or that you are a failure or have let yourself or your family down: not at all 7. Trouble concentrating on things, such as reading the newspaper or watching television: not at all 8. Moving or speaking so slowly that other people could have noticed. Or the opposite - being so fidgety or restless that you have been moving around a lot more than usual: not at all 9. Thoughts that you would be better off or of hurting yourself in some way: not at all Total score: 0 Depression Screening Interpretation: Negative Depression Screening Done: Yes 85801 - PHQ-9 Billing: Yes Source: Developed by Drs. Alek Gleason, Parul Snyder, Nick Godoy and colleagues, with an educational ankit from [employer]. Thrive Questionnaire Date Thrive assessed: 12/30/24 I am a: Patient What is your living situation today?: I have a steady place to live Within the past 12 months, did the food you bought not last and you didn't have the money to get more?: Never true Within the past 12 months, did you worry whether your food would run out before you got money to buy more?: Never true Do you have trouble paying for medicines?: No Do you have trouble getting transportation to medical appointments?: No Do you have trouble paying your heating and electricity bill?: No Do you have trouble taking care of your child, family member or friend?: No Do you have trouble with day-to-day activities such as bathing, preparing meals, shopping, managing finances, etc.?: No Are you currently unemployed and looking for a job?: No Are you interested in more education?: No Please select the resources that you would like help with: None Currently or been in a relationship where the following occur: No concerns reported THRIVE Score: 0 AUDIT C Alcohol Use Questionnaire (AUDIT-C) 1. How often do you have a drink containing alcohol?: Never Total Score: 0 Score Reviewed/Action Taken: No DARINEL-7 AMB Questionnaire DARINEL-7 Date DARINEL - 7 assessed: 12/30/24 Feeling nervous, anxious, or on edge: 0 = Not at all Not being able to stop or control worryin = Not at all Worrying too much about different things: 0 = Not at all Trouble relaxin = Not at all Being so restless that it is hard to sit still: 0 = Not at all Becoming easily annoyed or irritable: 0 = Not at all Feeling afraid as if something awful might happen: 0 = Not at all Total DARINEL-7 score (0-4 normal; 5-9 mild; 10-14 moderate; 15-21 severe): 0 Source: Developed by Drs. Alek Gleason, Parul Snyder, Nick Godoy and colleagues, with an educational ankit from [employer]. DARINEL-7 Assessment Billing DARINEL-7 Assessment Tool: DARINEL-7 Assessment 41224 Review of Systems Const All systems reviewed & are unremarkable except as noted in HPI and below Card Denies chest pain at rest, Denies chest pain with activity, Denies edema, Denies irregular heart rhythm, Denies claudication, Denies dyspnea, Denies dyspnea on exertion, Denies orthopnea, Denies paroxysmal nocturnal dyspnea and Denies slow heart rate Resp Denies cough, Denies dyspnea and Denies dyspnea on exertion GI Denies abdominal pain, Denies change in bowel habits, Denies excessive flatus, Denies nausea and Denies vomiting Denies urinary incontinence, Denies urinary hesitancy and Denies urinary urgency Musc Denies abnormal gait, Denies atrophy, Denies deformity and Denies limited range of motion Skin/Breast Denies bleeding lesions, Denies changing lesions and Denies rash Neuro Denies abnormal gait and Denies lack of coordination Physical exam (Primary Care) Vital Signs: Last Vital Signs BP 108/64 12/30/24 15:12 Tobacco/Smoking Status: Tobacco use Status Tobacco use date assessed 12/30/24 12/30/24 15:15 Patient Tobacco Use Status Former Tobacco user 12/30/24 15:12 Tobacco use type Cigarette 12/30/24 15:12 e-Cigarette/Vaping Use Never Used 12/30/24 15:12 PHQ-9: PHQ-9 Score PHQ-9: Total score 0 12/30/24 15:24 Depression Screening Interpretation: Negative Thrive Assessment: Date of Thrive Assessment Date Thrive assessed 12/30/24 12/30/24 15:12 Currently or been in a relationship where the following occur: No concerns reported Const Limitations: wheelchair (electric scooter) Resp Effort & Inspection: normal respiratory effort Auscultation: clear to auscultation bilaterally Cardio Jugular venous distension: no JVD Rate: regular rate Rhythm: regular rhythm Heart sounds: S1 normal heart sound present and S2 normal heart sound present Coding Level of Care Code Est Pt Level 4 (56767) Complex EM visit Add On G2211 Diagnoses Sjogren's syndrome with keratoconjunctivitis sicca M35.01 Sjogren organ or system involvement: keratoconjunctivitis 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 J98.4; G71.00 Mild depression F32.0 Neuromyelitis G36.9 Celiac disease K90.0 Asthma-COPD overlap syndrome J44.9 Additional Codes DARINEL-7 Assessment Billing - DARINEL-7 Assessment Tool: DARINEL-7 Assessment 69564 ([id number]) PHQ-9 - 20510 - PHQ-9 Billing: Yes ([id number]) Time Spent (min) 25 Assessment & Plan Assessment & Plan (1) Sjogrens syndrome: Code(s): M35.00 - Sjogren syndrome, unspecified Category: Medical Qualifiers: Sjogren organ or system involvement: keratoconjunctivitis Qualified Code(s): M35.01 - Sjogren syndrome with keratoconjunctivitis (2) 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: Code(s): J98.4 - Other disorders of lung; G71.00 - Muscular dystrophy, unspecified Category: Medical (3) Mild depression: Code(s): F32.0 - Major depressive disorder, single episode, mild Category: Medical (4) Neuromyelitis: Comment: Resulting in Neuromuscular disease Code(s): G36.9 - Acute disseminated demyelination, unspecified Category: Medical (5) Celiac disease: Code(s): K90.0 - Celiac disease Category: Medical (6) Asthma-COPD overlap syndrome: Code(s): J44.9 - Chronic obstructive pulmonary disease, unspecified Category: Medical Plan The management of the patient's neuromyelitis optica should continue with dietary modifications and medication adherence. Rituxan treatment is integral for managing her autoimmune condition, alongside her current medications, to control symptoms and reduce inflammation. Meanwhile, the patient's strict glut en-free diet and avoidance of inflammatory foods like nightshades are crucial to symptom management. Upcoming blood work will help monitor her overall health, while attention to osteoporosis risk is necessary due to dietary limitations. Allergy management must ensure avoidance of known allergens to prevent adverse reactions. Patient was informed and verbally consented to the use of an ambient scribe for clinic note documentation during this visit. I discussed with the patient the importance of maintaining a strict gluten-free diet to manage her celiac disease and reduce associated inflammatory symptoms. We reviewed her current medication regimen, including the need for continued use of Rituxan and supportive medications like baclofen and sertraline. In light of significant dietary restrictions, I emphasized monitoring for potential osteoporosis risks. We also touched on her allergy management strategy, reinforcing the need to avoid the identified allergens. Blood work scheduled in July will provide necessary insights into her metabolic health. Follow-up care and potential adjustments were outlined, emphasizing adherence to her current management plan. Orders: Orders IRON PROFILE 7 Months D64.9 - Anemia, unspecified Complete Blood Count Auto Diff 7 Months D64.9 - Anemia, unspecified Lipid Panel 7 Months E78.5 - Hyperlipidemia, unspecified Vitamin D 25-OH Total 7 Months E55.9 - Vitamin D deficiency, unspecified Vitamin B12 and Folate 7 Months E53.8 - Deficiency of other specified B group vitamins Comprehensive [place]. Panel Fast 7 Months M81.0 - Age-related osteoporosis without current pathological fracture Patient Instructions: - Continue adherence to a strict gluten-free diet. - Avoid nightshades and known allergens to manage pain and prevent allergic reactions. - Maintain current medication regimen, including Rituxan, baclofen, and sertraline. - Monitor for any new symptoms or worsening of current conditions. - Follow up with blood work in July to check metabolic status. - Stay informed about potential osteoporosis due to dietary restrictions and discuss this during follow-up visits. - Engage in safe activities as tolerated to improve mobility.
[2024-12-30 15:12] VITALS: BP 108/64
--- OUTSIDE RECORDS SUMMARY | 2024-12-30 17:52 | XMS_ITS | Clinical Summary ---
Author Organization [facility] Address [address] [place] [phone] Phone Care Team Providers Care Urban Anthropologist Name Role Phone Parul Sexton MD Primary Care Provider [phone] Allergies Active Allergy Reactions Criticality Noted Date Comments Blackberry Anaphylaxis High 05/10/2022 Coconut Anaphylaxis High 02/04/2020 Lanolin Rash Low 10/10/2016 Latex Rash Low 10/10/2016 Levofloxacin Unknown 12/13/2017 Pt unsure at this time Pepper (Genus Capsicum) 11/01/2022 pain Raspberry Anaphylaxis High 02/04/2020 Silk Rash Low 02/04/2020 Sulfa (Sulfonamide Antibiotics) Unknown High 05/13/2013 Causes jaundice , effects liver function Tree Nuts Anaphylaxis High 11/20/2022 Medications albuterol HFA (PROAIR HFA ; PROVENTIL HFA ; VENTOLIN HFA) 90 mcg/actuation inhaler Inhale 2 puffs by mouth every 4 (four) hours if needed for wheezing or shortness of breath. Active albuterol 1.25 mg/3 mL nebulizer solution Take 3 mL (1.25 mg total) by nebulization 4 (four) times a day. 08/17/20 24 Active baclofen (LIORESAL) 20 mg tablet Take 0.5 tablets (10 mg total) by mouth 3 (three) times a day. 10mg in the morning and afternoon, 20mg at night 08/19/20 23 Active cholecalcifero l (VITAMIN D-3) 25 mcg (1,000 unit) tablet [...] times a day if needed for diarrhea. 05/13/20 24 Active medroxyPROGEST ERone (PROVERA) 10 mg tablet Take 1 tablet [...] times a day. Active multivitamin with minerals (CENTRUM/CERTA VIT) 18-400 mg-mcg tablet tablet Take 1 tablet by mouth 1 (one) time each day. Active fish,bora,flax oils-om3,6,9no 1 ([place] 3-6-9) 1,200 mg capsule Take 1,200 mg [...] mouth 1 (one) time each day. Active amitriptyline (ELAVIL) 25 mg tablet 3 TABS AT BEDTIME 111 tablet 3 12/13/19 25 Active amitriptyline (ELAVIL) 25 mg tablet 3 po hs 90 each 5 08/19/20 24 025 Discontinued amitriptyline (ELAVIL) 25 mg tablet TAKE 1 TAB BY MOUTH AT BEDTIME X7 DAYS, 2 TABS AT BEDTIME X7 DAYS, THEN 3 TABS AT BEDTIME X30 DAYS. 111 tablet 3 12/13/19 25 025 Discontinued Active Problems Problem Noted Date Diagnosed Date Pressure ulcer of right buttock, stage 3 024 Neuromyelitis optica spectrum disorder Overview (09/01/2024): DX:Neuromyelitis optica spectrum disorder (HCC) Encounters Date Type Department Care Team Description 12/09/2024 10:00 AM EDT - 12/09/2024 11:59 PM EDT Hospital Encounter [facility] Infusion [facility] [address] [phone] Charlie Grigsby MD Neuromyelitis optica spectrum disorder (CMS/HCC) (Primary Dx) Discharge Disposition: Home or Self Care 11/10/2024 2:00 PM EST Office Visit [facility] [address] [place] [phone] Gladys Tomas MD Pressure ulcer of right buttock, stage 3 (CMS/HCC) (Primary Dx); Neuromyelitis optica spectrum disorder (CMS/HCC) 11/03/2024 Telephone [facility] [place] [facility] [place] [address] [phone] Charlie Grigsby MD RUXIENCE AUTH RQST; AUTH RECVD from Last 3 Months Surgical History Surgery Date Site/Laterality Comments OTHER SURGICAL HISTORY PROCEDURE:LEG WOUND REPAIR / CLOSURE TRACHEOSTOMY TUBE PLACEMENT 10/25/2019 - 11/22/2019 TRACHEOSTOMY CLOSURE 03/24/2020 - 04/23/2020 OTHER SURGICAL HISTORY Coccyx removal OTHER SURGICAL HISTORY Melanoma removal Medical History Medical History Date Comments Neuromyelitis optica spectru m disorder ([facility]) DX:Neuromyelitis optica spec trum disorder ([facility]) Arthritis DX:Arthritis TMJ (dislocation of temporom andibular joint) DX:TMJ (dislocation of tempo romandibular joint) Migraines DX:Migraines Melanoma ([facility]) DX:Melanoma ( [facility]) Tinnitus Osteoporosis GERD (gastroesophageal reflux disease) COPD (chronic obstructive pu lmonary disease) ([facility]) Family History Medical History Relation Name Comments [...] Sign Reading Time Taken Comments Blood Pressure 125/74 12/09/2024 10:42 AM EDT Pulse 59 12/09/2024 10:42 AM EDT Temperature 36.7 ??C (98.1 ??F) 11/10/2024 2:14 PM ES T Respiratory Rate 16 11/10/2024 2:14 PM EST Oxygen Saturation 98% 12/09/2024 10:42 AM EDT Inhaled Oxygen Concentration - - Weight 70.3 kg (155 lb) 09/15/2024 3:13 PM EST Height 172.7 cm (5' 8 ) 09/01/2024 1:04 PM EST Body Mass Index 23.57 09/01/2024 1:04 PM EST Plan of Treatment Upcoming Encounters Date Type Department Care Team (Late st Contact Info) Description 06/09/2025 10:00 AM EDT Appointment [address] [place] [phone] Health Maintenance Due Date Last Done Comments Breast Cancer Screening 1959 DTaP,Tdap,and Td Vaccines (1 - Tdap) 1978 Hepatitis A Vaccines (1 of 2 - Risk 2-dose series) 1978 Cervical Cancer Screening: Pap Smear 1980 Hepatitis B Vaccines (1 of 3 - Risk 3-dose series) 2019 Cholesterol Screening (Lipid Panel) 09/02/2022 Colorectal Cancer Screening: Colonoscopy 09/02/2022 Depression Screening 09/02/2022 Hepatitis C Screening 09/02/2022 Medicare Annual Wellness Visit 09/02/2022 Osteoporosis Screening (Bone Density Screening) 09/02/2022 Social Influencers of Health Screening 09/02/2022 Falls Risk Assessment 11/10/2025 11/10/2024 Zoster Vaccines Completed 07/03/2023, 03/25/2023 RSV Immunization Adult Patients Completed 09/07/2023 Influenza Vaccine Completed 07/15/2024, , 08/25/2015, Additional history exists Pneumococcal Vaccine: 50+ Years Completed 11/25/2024, 07/08/2009 Pneumococcal Vaccine: Pediatrics (0 to 5 Years) and At-Risk Patients (6 to 64 Years) Completed 11/25/2024, 07/08/2009 COVID-19 Vaccine Completed 12/02/2024, 06/2023, 09/05/2022, Additional history exists HIB Vaccines Aged Out No longer eligi [...] age to complete this topic Meningococcal B Vaccine Aged Out No l onger eligible based on patient's age to complete [...] Care Plan Impaired Tissue No Marielos Malagon pull socket assembler volume breakdown reduced by X% by week 8 Care Plan Impaired Tissue No Marielos Malagon RN Wound volume breakdown reduced by X% by week 12 Care Plan Impaired Tissue No Marielos Malagon RN Quit using tobacco (cigarettes, smokeless, etc) [...] omised skin integrity. No Marielos Malagon RN Additional Health Concerns Active Problems Noted Date Diagnosed Date Impaired Tissue 09/01/2024 Education needed on impact of smoking on wound 1 11/02/2023 Education needed related to ulceration/compromised skin integrity. 09/01/2024 Insurance MEDICARE MEDICAID - [place] [facility] Care Teams Urban Anthropologist Relationship Specialty Start Date End Date Parul Sexton MD 2 [facility] , [address] Physician Associ D/B/A: [facility] ARIADNE Coreas PCP - General 04/06/22
--- OUTSIDE RECORDS SUMMARY | 2024-12-30 17:52 | XMS_ITS | Clinical Summary ---
Author Organization [facility] Address [address] [place] [address] Care Team Providers Care Organic Extractions Technician Name Role Phone Parul Vieira MD Primary [...] PO) Take by mouth. 0 Acti ve [place]-3-6-9 CAPS Take by mouth. 0 Acti ve [...] age to complete this topic Care Teams Organic Extractions Technician Relationship Specialty Start Date End Date Parul Vieira MD [address] [place] [address] , [address] [facility] Physician Associ D/B/A: [facility] [place] [address] PCP - General Internal Medicine 04/06/22
== END 2024-12-30 15:45 | disposition home or self-care (01) ==
LOC: HO.HMCH 14:47
PROVIDERS: PCP Internal Medicine; Visit Provider Internal Medicine
DX: M35.01 Sjogren syndrome with keratoconjunctivitis (principal); G71.00 Muscular dystrophy, unspecified; G36.9 Acute disseminated demyelination, unspecified; F32.0 Major depressive disorder, single episode, mild; J44.9 Chronic obstructive pulmonary disease, unspecified; J98.4 Other disorders of lung; K90.0 Celiac disease

== ENCOUNTER → 2024-12-30 14:46 | Outpatient (BNVA) | payer BC, MEDICARE, MEDICAID, SELFPAY | PROVIDERS: PCP Internal Medicine; Visit Provider Internal Medicine | DX: M35.01 Sjogren syndrome with keratoconjunctivitis (principal); J98.4 Other disorders of lung; G71.00 Muscular dystrophy, unspecified; F32.0 Major depressive disorder, single episode, mild; G36.9 Acute disseminated demyelination, unspecified; K90.0 Celiac disease; J44.9 Chronic obstructive pulmonary disease, unspecified | CPT/HCPCS: 96127 ==

== ENCOUNTER 2025-02-02 12:40 | Outpatient (REF) | payer MEDICARE, BC, MEDICAID, SELFPAY ==
[2025-02-02 12:52] LABS: Appearance Urine Cloudy; Color Urine Yellow; Glucose Urine UA Negative (Negative); Leukocyte Esterase Urine Large (3+) (Negative); Nitrite Urine Negative (Negative); UMIC TRIGGER UACC YES; Urine Blood Trace (Negative); Urine Ketones 15 mg/dL (Negative); Urine Protein Negative (Neg-Trace)
[2025-02-02 13:00] LABS: Bacteria Urine 3+ (None Seen); Hyaline Casts Urine 0-2 /LPF (0-2); RBC Urine 0-2 /HPF (0-2); UACC Culture Trigger YES; WBC Clumps Urine Present
[2025-02-02 13:02] LABS: Transitional Epi Cells Urine Present
--- OUTSIDE RECORDS SUMMARY | 2025-02-02 13:04 | XMS_ITS | Clinical Summary ---
Author Organization [facility] Address [address] [place] [phone] Phone Care Team Providers Care Engraver Block Name Role Phone Parul Sexton MD Primary Care Provider [phone] Allergies Active Allergy Reactions Criticality Noted Date [...] (one) time each day. Active fish,bora,flax oils-om3,6,9no1 ([place] 3-6-9) 1,200 mg capsule Take 1,200 mg [...] 3 TABS AT BEDTIME 111 tablet 3 5 Active Active Problems Problem Noted Date Diagnosed Date Pressure ulcer of right butt ock, stage 3 ([facility] V24, [facility] V28) 09/01/2024 Neuromyelitis optica spectru m disorder ([facility] V24, [facility] V28) Overview (09/01/2024): DX:Neuromyelitis optica spectrum disorder ([facility]) Encounters Date Type Department Care Team Description 12/09/2024 10:00 AM EDT - 12/09/2024 11:59 PM EDT Hospital Encounter [facility] Infusion Center [address] [place] [phone] Charlie Grigsby MD Neuromyelitis optica spectrum disorder ([facility] V24, [facility] V28) (Primary Dx) Discharge Disposition: Home or Self Care 11/10/2024 2:00 PM EST Office Visit [facility] [address] [place] [phone] Gladys Tomas MD Pressure ulcer of right buttock, stage 3 ([facility] V24, [facility] V28) (Primary Dx); Neuromyelitis optica spectrum disorder ([facility] V24, [facility] V28) from Last 3 Months Surgical History Surgery Date Site/Laterality Comments OTHER SURGICAL HISTORY PROCEDURE:LEG WOUND REPAIR / CLOSURE TRACHEOSTOMY TUBE PLACEMENT 10/25/2019 - 11/22/2019 TRACHEOSTOMY CLOSURE 03/24/2020 - 04/23/2020 OTHER SURGICAL HISTORY Coccyx removal OTHER SURGICAL HISTORY Melanoma removal Medical History Medical History Date Comments Neuromyelitis optica spectru m disorder ([facility] V24, [facility] V28) DX:Neuromyelitis optica spe ctrum disorder (HCC) Arthritis DX:Arthritis TMJ (dislocation of temporom andibular joint) DX:TMJ (dislocation of tempo romandibular joint) Migraines DX:Migraines Melanoma ([facility] V24, [facility] V28) DX:Melanoma (HCC) Tinnitus Osteoporosis GERD (gastroesophageal reflux disease) COPD (chronic obstructive pu lmonary disease) ([facility] V24, [facility] V28) Family History Medical History Relation Name Comments [...] Care Team (Late st Contact Info) Description 02/10/2025 3:00 PM EDT Office Visit [facility] [address] [facility] [address] [place] [phone] Ghazala Perdomo PA [address] [place] [address] 06/09/2025 10:00 AM EDT Appointment [facility] In[facility] [address] [place] [phone] Health Maintenance Due Date Last [...] 09/02/2022 Social Influencers of Health Screening 09/02/2022 COVID-19 Vaccine (7 - Moderna risk season) 2025 12/02/2024, 07/03/2023, 09/05/2022, Additional history exists Falls Risk Assessment 11/10/2025 11/10/2024 Zoster Vaccines Completed 07/03/2023, 03/25/2023 RSV Immunization Adult Patients Completed 09/07/2023 Influenza Vaccine Completed 07/15/2024, , 08/25/2015, Additional history exists Pneumococcal Vaccine: 50+ Years Completed 11/25/2024, 07/08/2009 Pneumococcal Vaccine: Pediatrics (0 to 5 Years) and At-Risk Patients (6 to 64 Years) Completed 11/25/2024, 07/08/2009 HIB Vaccines Aged Out No longer eligi [...] by week 4 Care Plan Impaired Tissue Marielos Brice RN Wound volume breakdown reduced by X% by week 8 Care Plan Impaired Tissue Marielos Brice RN Wound volume breakdown reduced by X% [...] ulceration/compr omised skin integrity. Marielos Brice RN Additional Health Concerns Active Problems Noted Date Diagnosed Date Impaired Tissue 09/01/2024 Education needed on impact of smoking on wound 1 11/02/2023 Education needed related to ulceration/compromised skin integrity. 09/01/2024 Insurance MEDICARE [place]ICAID - [place] Member Subscriber Plan / Payer (Ef fective 2024-Present) Name:Vivi Ayala Relation to Subscriber:Self Name:Vivi Ayala Payer ID:[id number] Group ID:Not on file Type:Not on file Address: [facility] [employer] [place] ATTN:CLAIMS [address] [place] [address] [facility] Care Teams Engraver Block Relationship Specialty Start Date End Date Parul Sexton MD 2 [facility] , [facility] [address] [facility] Physician Associ D/B/A: [facility] [place] PCP - General 04/06/22
--- OUTSIDE RECORDS SUMMARY | 2025-02-02 13:04 | XMS_ITS | Clinical Summary ---
Author Organization [facility] Address [address] [place] [address] Care Team Providers Care Coin Collector Name Role Phone Parul Vieira MD Primary [...] PO) Take by mouth. 0 Acti ve [place]-3-6-9 CAPS Take by mouth. 0 Acti ve [...] age to complete this topic Care Teams Coin Collector Relationship Specialty Start Date End Date Parul Vieira MD [address] [place] [address] , [address] [facility] Physician Associ D/B/A[facility] [place] [address] PCP - General Internal Medicine 04/06/22
== END 2025-02-02 12:41 | disposition home or self-care (01) ==
LOC: HO.HVNA 12:40
PROVIDERS: Visit Provider Urology
DX: N39.0 Urinary tract infection, site not specified (principal)
CPT/HCPCS: 81001; 87086

== ENCOUNTER 2025-02-25 15:13 | Outpatient (AMB) | payer MEDICARE, BC, MEDICAID, SELFPAY ==
[2025-02-25 15:17] VITALS: BP 90/62; PULSE 79; O2SAT 96
--- NOTE | 2025-02-25 15:17 | A.OFFVIS_ITS ---
Vital Signs 02/25/25 15:17 Height 5 ft 8 in BP 90/62 Blood Pressure Location Rt brachial Position Sitting Pulse 79 Pulse Source Pulse Oximeter Pulse Oximetry (%) 96 Oxygen Delivery Method Room Air Intake Visit Reasons: Discuss Evenity/Other disorders of phosphorus meta Intake Note: Patient present today to discuss Evenity/Other disorders of phosphorus meta. Forensic Ballistics Expert Required: No Accompanied by: Spouse Allergies blackberry Allergy (Severe, Verified 02/25/25 15:22) Rash and Hives lanolin Allergy (Severe, Verified 02/25/25 15:22) Rash and Hives latex [LATEX] Allergy (Severe, Verified 02/25/25 15:22) RASH Sulfa (Sulfonamide Antibiotics) [SULFA (SULFONAMIDE ANTIBIOTICS)] Allergy (Severe, Verified 02/25/25 15:22) JUANDICE tree nut [TREE NUT] Allergy (Severe, Verified 02/25/25 15:22) ANAPHYLAXIS rasberries Allergy (Severe, Uncoded 02/25/25 15:22) Rash and Hives Tetanus Allergy (Severe, Uncoded 02/25/25 15:22) Rash and Hives Medication List - Last Reconciled 02/25/25 by Kalee Feng MD albuterol sulfate 1.25 mg (3 mL) inhalation QID albuterol sulfate 90 mcg/actuation 2 puffs inhalation Q6H PRN ascorbate calcium (vitamin C) 500 mg PO DAILY baclofen 10 mg PO TID baclofen 20 mg PO BEDTIME cholecalciferol (vitamin D3) 50 mcg PO DAILY clindamycin phosphate 1 supp vaginal BEDTIME 3 days btqqpaknn-Dc-fjyim-mushroomcmb [phone] wf-kvf-xo-mg tabs PO cyanocobalamin (vitamin B-12) 1,000 mcg PO DAILY diaper,brief,adult,disposable Size large disposable gloves As directed epinephrine IM DIRECTED Evenity (romosozumab-aqqg) KYUNG 0 210 mg subcutaneously; every month for 12 months NS gel dressing (Skintegrity Hydrogel topical) As directed applied to wound daily magnesium gluconate 30 mg PO DAILY methenamine hippurate 1 g PO BID midodrine 5 mg PO TID 30 days multivitamin 1 tab PO DAILY nebulizers As directed omega-3 fatty acids 500 mg PO DAILY peg 400-propylene glycol 0.4-0.3 % (Systane Gel) 1 drp ophthalmic (eye) BEDTIME 30 days quetiapine (Seroquel) 25 mg PO TID 90 days rituximab (Rituxan) IV [robu cushion As directed] sertraline 50 mg PO DAILY underpads As directed [wheelchair motorized with Roku cushion As directed] zinc gluconate 15 mg PO DAILY HPI Comments Details: 63-year-old female here today for follow up of osteoporosis. HPI from initial visit She was being evaluated by Rheumatology when she was noted to have low phosphorus levels and was referred to us to get evaluated for secondary causes of osteoporosis. BMD January 2024 showed normal BMD of the spine, severe osteoporosis of the hip with T score -4.4 at the left femoral neck and -5.1 at the total hip She follows with Dr. Jabari Roth , at [facility] in [place]. Neurology. She has a diagnosis of neuromyelitis optica spectrum disorder ( autoimmune) . Diagnosed June 2006. In the past she used to be on steroids, IV steroids every 4 to 5 months off now since 10 years but was on them for 10 or so years, now on Rituximab every 6 months . She is limited mobility in her lower extremities . April 2008 she lost lower limb mobility suddenly also has history of melanoma 2012 , upper right thigh , surgically removed . No other cancer history , no radiation therapy Osteoporosis new pt evaluation Post menopausal osteoporosis: Diagnosed in 2023 Fracture History: no fractures, no falls Height loss:no: 5 ft 8 inches Back pain: none Pharmacotherapeutic hx: none Drug holiday none Family history: no history of osteoporosis, neither parent fractured hip Estrogen use: menarche 10 years. natural menopausal aged 45 years . used to have hot flashes at that time too. no HRT. on OCPS for 3 years in early 20s. 2 pregnancies, both live births. 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 Diagnosed June 2006. In the past she used to be on steroids, IV steroids every 4 to 5 months off now since 10 years but was on them for 10 or so years, now on Rituximab every 6 months . She is limited mobility in her lower extremities . April 2008 she lost lower limb mobility suddenly History of kidney stones or disease: yes, lithotripsy 2018, has a suprapubic catheter PI Use: none Chronic inflammatory lung disease: Negative Chronic inflammatory bowel disease: Negative Daily calcium intake: no supplements, no milk , cheese once a week , yogurt none Vitamin D intake: 2000 units daily Exercise:none Smoking history: smoked till 19 years of age , social smoker Dental: Has regular dental cleaning, no issues, eveyr 6 months, has some root canals, no planned procedures at this time No diarrhea currenlty, but she does have some loose stools when she goes on antibiotcs intermittenly cannot recall if at the time of labs in May was having diarrhea. No history of DM, not on insulin. She seems to be breathing normally but says her neurological disorder can cause breathing disorders. Trach from 2008 to 2019. Labs from 09/02/2024 showed that her phosphorus level normalized to 3.1. Other secondary workup for osteoporosis also unremarkable, normal calcium of 9.5, with albumin of 4, normal ionized calcium of 5.4, normal magnesium level. Normal thyroid function. Vitamin-D level of 51.9. Normal kidney function with a EGFR greater than 60. CTX level of 340, showing that resorption is not that high, s he would rather benefit from an anabolic agent. Bone specific alkaline phosphatase level of 15.4. 24 hour urine calcium on the lower side at 43 as well as low 24 hour urine phosphorus. Likely due to poor nutritional intake calcium and phosphorus. Up-to-date with dental care, last visit last month Continues on vitamin-D 2000 units daily Interval history Continues on vitamin-D 2000 units daily Has been having trouble tolerating calcium supplements, reports aches and pains with different calcium supplements but she has been drinking oat milk fortified with calcium and cheese here and there No fractures Up-to-date with dental care Physical exam General: sitting comfortably in no acute distress HEENT: normocephalic/atraumatic, moist oral mucosa Neck: supple, symmetrical Cardiac: normal heart sounds Pulm: normal breath sounds B/L, no added breath sounds Abd: not distended, no tenderness Laboratory Tests 11/06/18 01/26/21 03/03/22 00:00 10:50 16:07 Calcium 9.1 9.4 Phosphorus Magnesium Albumin 3.5 3.8 25-OH Vitamin D Total 55 TSH PTH Intact 01/08/24 02/12/24 06/17/24 15:25 15:09 14:34 Calcium 9.3 9.7 Phosphorus 2.3 L Magnesium 2.0 Albumin 3.8 3.8 25-OH Vitamin D Total 50.2 55.5 TSH 1.30 PTH Intact 81.4 H Laboratory Tests 06/27/24 09/02/24 09/02/24 14:56 08:30 13:30 Sodium Potassium Creatinine Estimated GFR Calcium Ionized Calcium Phosphorus Magnesium Alk Phos Bone Specific Total Protein (PEP) Albumin Albumin (PEP) Gygva-4-Zcvbfwher Dpwo-3-Xeenjule Mfia-3-Uekbjysc Gamma Globulins Collgn I C-Telopeptide 367 25-OH Vitamin D Total TSH PTH Intact Ur Random Phosphorus 12.3 Ur Random Calcium 2.3 Ur 24 Hour Volume 2700 Urine Creatinine 17.25 Ur Creatinine mg/dL 13.39 Ur Creatinine 24 Hour 0.4 L Ur Phosphorus 24 Hr 0.3 L Ur Calcium 24 Hr 43 Calcium/Creat 24 Hr 107 09/02/24 14:46 Sodium 138 Potassium 4.0 Creatinine 0.51 Estimated GFR > 60 Calcium 9.5 Ionized Calcium 5.4 Phosphorus 3.1 Magnesium 2.2 Alk Phos Bone Specific 15.4 Total Protein (PEP) 6.7 Albumin 3.7 Albumin (PEP) 4.0 Aickh-4-Dqvpdnaqs 0.6 Nvxd-9-Hbqmolgm 0.4 Dhmv-2-Kifekhvp 0.5 Gamma Globulins 1.0 Collgn I C-Telopeptide 340 25-OH Vitamin D Total 51.9 TSH 2.07 PTH Intact 55.2 Ur Random Phosphorus Ur Random Calcium Ur 24 Hour Volume Urine Creatinine Ur Creatinine mg/dL Ur Creatinine 24 Hour Ur Phosphorus 24 Hr Ur Calcium 24 Hr Calcium/Creat 24 Hr BONE DENSITOMETRY 02/12/24 CLINICAL INDICATION: Menopause. COMPARISON: This is the patient's baseline examination. TECHNIQUE: Using a [employer] DXA System (software version: 13.1) manufactured by [employer], dual-energy x-ray absorptiometry was performed of the lumbar spine and left hip. The images are of good technical quality. Summary results are attached. FINDINGS: LEFT FEMUR, NECK: BMD 0.424 g/cm2, Z-score -3.1, T-score -4.4, osteoporosis. LEFT FEMUR, TOTAL: BMD 0.370 g/cm2, Z-score -4.0, T-score -5.1, osteoporosis. AP SPINE L1-L4: BMD 1.246 g/cm2, Z-score 1.9, T-score 0.6, normal. IDENTIFIED RISK FACTORS: Menopause, osteoporosis, rheumatoid arthritis, glucocorticoids (chronic). HISTORY OF FRACTURE: None listed. MEDICATIONS: Calcium, vitamin D. MM/XR DEXA axial skeleton IMPRESSION: 1. DIAGNOSIS: Osteoporosis based on the lowest T-score value of -5.1 in the total femur applying World Health Organization criteria. 2. 10-YEAR FRACTURE RISK PREDICTION, FRAX: According to the guidelines, FRAX calculation should only be performed on patients in the osteopenia bone density category. Therefore, FRAX was not performed on this patient. 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 Thigh shingles Vegetarian diet COVID-19 Diarrhea Edema of right foot Asthma-COPD overlap syndrome Breast pain, left Decubitus ulcer, stage 4 Mild depression Wheelchair bound Hypovitaminosis D B12 deficiency Muscle spasm Idiopathic hypotension Neuromyelitis Surgical History Tracheostomy status Status post insertion of percutaneous endoscopic gastrostomy (PEG) tube History of lipoma Family History Father Diabetes Bone cancer Mother Diabetes Social History Housing: House Alcohol intake: never Patient Tobacco Use Status: Former Tobacco user Tobacco use type: Cigarette Years Smoked: 2 years e-Cigarette/Vaping Use: Never Used Second Hand Smoke Exposure: No service: No Current occupational status: disabled Cognitive needs: Yes Hearing needs: Yes Vision needs: Yes Assessment & Plan Assessment & Plan (1) Osteoporosis: Code(s): M81.0 - Age-related osteoporosis without current pathological fracture Category: Medical Qualifiers: Osteoporosis type: age-related Presence of current pathological fracture: without current pathological fracture Qualified Code(s): M81.0 - Age- related osteoporosis without current pathological fracture Plan: 63-year-old female her today for initial evaluation of osteoporosis. Diagnosed with osteoporosis in January 2024 on bone density scan which showed severe osteoporosis of the hip T-score of-4.4 at the left femoral neck and-5.1 at the total hip. Normal bone density of the spine. She has never been on therapy for osteoporosis before this was her 1st bone density scan. High-risk factors for osteoporosis include immobility due to neurologic disorder in the lower limbs, postmenopausal, age, long-term steroid used in the past for autoimmune neurologic condition, poor nutritional intake of calcium. She also saw a Rheumatology recently, and her blood work from May 2024 showed low phosphorus of 2.3, normal calcium of 9.7 with albumin of 3.8, vitamin-D of 5.5, PTH mildly elevated at 81.4. Normal kidney function. Phosphorus levels subsequently normalized, likely she had diarrhea at the time of that workup. Labs from 09/02/2024 showed that her phosphorus level normalized to 3.1. Other secondary workup for osteoporosis also unremarkable, normal calcium of 9.5, with albumin of 4, normal ionized calcium of 5.4, normal magnesium level. Normal thyroid function. Vitamin-D level of 51.9. Normal kidney function with a EGFR greater than 60. CTX level of 340, showing that resorption is not that high, she would rather benefit from an anabolic agent. Bone specific alkaline phosphatase level of 15.4. 24 hour urine calcium on the lower side at 43 as well as low 24 hour urine phosphorus. Likely due to poor nutritional intake calcium and phosphorus. I discussed conservative measures including adequate calcium intake, adequate vitamin D levels as well as the role of weightbearing exercises in general being good for bone health. Given she does not have mobility in her lower limbs, we briefly discussed role of resistance training on lower extremity muscles, patient is has been was with her during this visit in suggested a stv-oy-dnkbe exercise machine. In addition to conservative management with calcium and vitamin D; I do believe she would benefit from osteoporosis therapy in terms of reducing future fracture risk. Given severity of osteoporosis in the hip, she would benefit from an anabolic agent. While Mikala and Eleazar do not have very strong data for improvement in bone density at the hip, Evenity has shown improvement in bone density by 12% in the spine and 5% in the hip. I counseled regarding the mechanism of action, route of administration, common side effects as well as black box warnings particularly osteonecrosis of the jaw and atypical femur fracture. Pros and cons discussed including black box warning of increased cardiac events 1% absolute risk -He has not had a cardiac event or stroke and she is relatively in good shape I.e. no hypertension hyperlipidemia or diabetes -Other side effects of arthralgia headaches hypocalcemia discussed Osteonecrosis of the jaw and atypical femur fracture is un likely She is scheduled appointment today to address concerns regarding Evenity, all questions were answered patient would like to start Evenity today. Plan: -start Evenity 210 mg monthly injection for 12 months' course -continue vitamin-D 2000 units daily -improve nutritional intake of calcium to accommodate at least 800-1000 mg in a day -try for weight-bearing exercise on the lower limbs with resistance bands -do blood work within this week -follow up in 6 months with fasting blood work -next bone density would be due January 2026 - Plan I spent 30 minutes in reviewing the record, seeing the patient and documenting in the medical record. Orders: Orders Albumin Level Today M81.0 - Age-related osteoporosis without current pathological fracture Vitamin D 25-OH Total Today M81.0 - Age-related osteoporosis without current pathological fracture Calcium Today M81.0 - Age-related osteoporosis without current pathological fracture Creatinine Today M81.0 - Age-related osteoporosis without current pathological fracture Patient Instructions: Different calcium brands: citracal, caltrate , Solgar, One a day , nature made, naturelo Kale, spinach ,broccoli ,fortified oat mil, fortified cereal, tofu, canned salmon with bones 1000 mg calcium daily between your diet and supplement Continue vitamin D Do blood work Do another set of fasting blood work a week or two prior to follow up in 6 months Coding Level of Care Code Est Pt Level 4 (07947) Diagnoses Age-related osteoporosis without current pathological fracture M81.0 Osteoporosis type: age-related Presence of current pathological fracture: without current pathological fracture Time Spent (min) 30
--- OUTSIDE RECORDS SUMMARY | 2025-02-25 15:25 | XMS_ITS | Clinical Summary ---
Author Organization [facility] Address [address] [place] [address] Care Team Providers Care Stationary Equipment Mechanic Name Role Phone Parul Vieira MD Primary [...] PO) Take by mouth. 0 Acti ve [place]-3-6-9 CAPS Take by mouth. 0 Acti ve [...] 2009 Shingrix-Zoster Vaccine (1 of 2) 2009 Fall Risk Assessment 2024 Osteoporosis Screening (DEXA Scan) 2024 Pneumococcal Vaccine (2 of 2 - PCV) 2024 07/08/2009 Influenza Vaccine (Season Ended) 2025 08/25/2015, 06/24/2014, 07/21/2013, Additional history exists RSV Adult > 60+ Yrs or (1 [...] age to complete this topic Care Teams Stationary Equipment Mechanic Relationship Specialty Start Date End Date Parul Vieira MD [address] [place] [address] , [address] [facility] D/B/A[facility] [place] [address] PCP - General Internal Medicine 04/06/22
== END 2025-02-25 16:29 | disposition home or self-care (01) ==
LOC: HO.ENCR 15:14
PROVIDERS: PCP Internal Medicine; Visit Provider Student in an Organized Health Care Education/Training Program
DX: M81.0 Age-related osteoporosis without current pathological fracture (principal)
CPT/HCPCS: 99214

== ENCOUNTER → 2025-02-25 15:13 | Outpatient (BNVA) | payer MEDICARE, BC, MEDICAID, SELFPAY | PROVIDERS: PCP Internal Medicine; Visit Provider Student in an Organized Health Care Education/Training Program | DX: M81.0 Age-related osteoporosis without current pathological fracture (principal); Z78.0 Asymptomatic menopausal state | CPT/HCPCS: 96372; 99212; J3111 ==

== ENCOUNTER 2025-03-03 15:16 | Outpatient (REF) | payer MEDICARE, BC, MEDICAID, SELFPAY ==
[2025-03-03 16:18] LABS: Albumin Level 3.8 g/dL (3.5-5.0); Calcium 9.2 mg/dL (8.4-10.2); Estimated Glomerular Filt Rate > 60
[2025-03-03 16:36] LABS: Vitamin D 25-OH Total 52.9 ng/mL (>30)
--- OUTSIDE RECORDS SUMMARY | 2025-03-03 18:27 | XMS_ITS | Clinical Summary ---
Author Organization [facility] Address [address] [place] [address] Care Team Providers Care Device Sales Consultant Name Role Phone Parul Vieira MD Primary [...] PO) Take by mouth. 0 Acti ve [place]-3-6-9 CAPS Take by mouth. 0 Acti ve [...] age to complete this topic Care Teams Device Sales Consultant Relationship Specialty Start Date End Date Parul Vieira MD [address] [place] [address] , [address] [facility] D/B/A[facility] [place] [address] PCP - General Internal Medicine 04/06/22
== END 2025-03-03 15:17 | disposition home or self-care (01) ==
LOC: HO.LAB 15:16
PROVIDERS: PCP Internal Medicine; Visit Provider Student in an Organized Health Care Education/Training Program
DX: M81.0 Age-related osteoporosis without current pathological fracture (principal)
CPT/HCPCS: 36415; 82040; 82306; 82310; 82565

== ENCOUNTER 2025-03-25 14:54 | Outpatient (AMB) | payer MEDICARE, BC, MEDICAID, SELFPAY ==
--- OUTSIDE RECORDS SUMMARY | 2025-03-25 15:18 | XMS_ITS ---
Author Name [facility] Organization Unknown History of Medication Use Medication Directions Dispensed Refills Start Date End Date Status medroxyPROGESTERone (PROVERA) 10 MG tablet Take 1 tablet (10 mg total) by mouth daily. 4 active baclofen (LIORESAL) 20 MG tablet 10mg morning and afternoon, 20mg at night 3 active EPINEPHrine 0.3 MG/0.3ML SOAJ See Instructions, Intramuscular Once for anaphylaxis reaction, # 2 each, 1 Refills, Soft Stop, 06/21/15 15:46:31, Intramuscular Once for anaphylaxis reaction 5 active Cyanocobalamin 5000 MCG/ML LIQD Place 5,000 mcg under the tongue. 12/25/19 24 aborted magnesium gluconate (MAGONATE) 30 MG tablet Take 1 tablet (30 mg total) by mouth 2 (two) times a day. active methenamine (HIPREX) 1 g tablet Take 1 tablet (1 g total) by mouth 2 (two) times a day with meals. active [place]-3-6-9 CAPS Take by mouth. active QUEtiapine (SEROquel) 25 MG tablet Take 1 tablet (25 mg total) by mouth 2 (two) times a day. active vitamin D3 (VITAMIN D3) 25 MCG (1000 UT) tablet Take 2 tablets (2,000 Units total) by mouth daily. active Allergies Allergen Reaction Severity Comment Documented Date Source Status TREE NUTS ANAPHYLAXIS 11/20/2022 [facility] active PEPPERS pain 11/01/2022 [facility] active BLACKBERRY ANAPHYLAXIS 05/10/2022 [facility] activ e SULFA ANTIBIOTICS OTHER (SEE COMMENTS) Causes jaundice , effects liver function 03/18/2020 [facility] active RASPBERRY ANAPHYLAXIS 02/04/2020 [facility] active LEVOFLOXACIN OTHER (SEE COMMENTS) Pt unsure at this time 12/13/2017 [facility] active LATEX RASH 10/10/2016 [facility] active COCONUT ANAPHYLAXIS [facility] HYDROLYZED SILK RASH [facility] LANOLIN RASH [facility] Problems Problem Status Onset Date Problem Type Date of Resoluti on Source Neuromyelitis optica (devic) active 2022-04-13 ProblemAct [facility]
--- OUTSIDE RECORDS SUMMARY | 2025-03-25 15:18 | XMS_ITS | Clinical Summary ---
Author Organization [facility] Address [address] [place] [address] Care Team Providers Care Bsa Officer Name Role Phone Parul Vieira MD Primary [...] PO) Take by mouth. 0 Acti ve [place]-3-6-9 CAPS Take by mouth. 0 Acti ve [...] 65 11/21/2023 10:43 AM EST Temperature 36.7 C (98 F) 06/11/2024 10:26 AM EDT Respiratory Rate 18 [...] age to complete this topic Care Teams Bsa Officer Relationship Specialty Start Date End Date Parul Vieira MD [address] [facility] , [address] [facility] D/B/A: [facility] [place] [address] PCP - General Internal Medicine 04/06/22
--- OUTSIDE RECORDS SUMMARY | 2025-03-25 15:18 | XMS_ITS | Encounter Summary ---
Author Organization [facility] Address [address] [place] [address] Care Team Providers Care Grain Merchandiser Name Role Phone Parul Sexton MD Primary Care Provider [phone] Encounter Details Date Type Department Care Team (Late Contact Info) Description 02/12/2025 Lab Requisition [facility] [address] [facility] [place] [address] Imer Bolden MD [address] [facility] [address] [place] [address] Urinary tract infection, site not specified Social History Tobacco Use Types Packs/Day Years [...] on file documented as of this encounter Plan of Treatment Upcoming Encounters Date Type Department Care Team (Late Contact Info) Description 06/09/2025 10:00 AM EDT Appointment [facility] [address] [place] [id number] 08/18/2025 3:00 PM EST Office Visit [facility] [address] [place] [address] Charlie Grigsby MD [address] [facility] [address] [place] [address] documented as of this encounter Goals Goal [...] Malagon RN documented as of this encounter Procedures Procedure Name Priority Date/Time Associated Diagnosis Comments BACTERIAL IDENTIFICATION AND SUSCEPTIBILITY, AEROBIC Routine 02/11/2025 12:00 AM EDT Urinary tract infection, site not specified documented in this encounter Results * (ABNORMAL) Bacterial identification and susceptibility, aerobic (02/11/2025 12:00 AM EDT) Culture, Bacterial ID and Sensitivity Proteus mirabilis(A) MIGUEL 02/14/2025 9:50 AM EDT [facility] Comment: The organism value for this result has been updated. These results have been appended to the previously preliminary verified report. Edited result: Previously reported as Proteus species on 02/13/2025 at 1046 EDT. Culture, Bacterial ID and Sensitivity Pseudomonas aeruginosa(A) MIGUEL 02/14/2025 9:50 AM EDT [facility] Comment: The organism value for this result has been updated. These results have been appended to the previously preliminary verified report. Other Urine specimen from urinary conduit / Unknown 02/11/2025 02/12/2025 10:14 AM EDT Narrative Organism Antibiotic Method Susceptibility Proteus mirabilis Amoxicillin/Clavulanate MIGUEL <=2 ug/ml: Susceptible Proteus mirabilis Ampicillin/Sulbactam MIGUEL <=2 ug/ml: Susceptible Proteus mirabilis Piperacillin/Tazobactam MIGUEL <=4 ug/ml: Susceptible Proteus mirabilis Cefazolin (Urine) MIGUEL 4 ug/ml: Susceptible Proteus mirabilis Cefoxitin MIGUEL <=4 ug/ml: Susceptible Proteus mirabilis Ceftazidime MIGUEL <=0.5 ug/ml: Susceptible Proteus mirabilis Ceftriaxone MIGUEL <=0.25 ug/ml: Susceptible Proteus mirabilis Cefepime MIGUEL <=0.12 ug/ml: Susceptible Proteus mirabilis Meropenem MIGUEL 0.5 ug/ml: Susceptible Proteus mirabilis Amikacin MIGUEL 2 ug/ml: Susceptible Proteus mirabilis Gentamicin MIGUEL 8 ug/ml: Resistant Proteus mirabilis Ciprofloxacin MIGUEL >=4 ug/ml: Resistant Proteus mirabilis Nitrofurantoin MIGUEL 128 ug/ml: Resistant Proteus mirabilis Trimethoprim/Sulfame thoxazol e MIGUEL >=320 ug/ml: Resistant Pseudomonas aeruginosa Piperacillin/Tazobactam MIGUEL 8 ug/ml: Susceptible Pseudomonas aeruginosa Ceftazidime MIGUEL 4 ug/ml: Susceptible Pseudomonas aeruginosa Cefepime MIGUEL 2 ug/ml: Susceptible Pseudomonas aeruginosa Meropenem MIGUEL <=0.25 ug/ml: Susceptible Pseudomonas aeruginosa Amikacin MIGUEL 4 ug/ml: Susceptible Pseudomonas aeruginosa Ciprofloxacin MIGUEL 0.25 ug/ml: Susceptible Pseudomonas aeruginosa Levofloxacin MIGUEL 0.5 ug/ml: Susceptible us Imer Bolden MD LAB MICROBIOLOGY - G ENERAL ORDERABLES Final Result [facility] [address] [place] [address], documented in this encounter Visit Diagnoses Diagnosis Urinary tract infection, site not specified documented in this encounter Additional Health Concerns Active Problems Noted Date Diagnosed Date Impaired Tissue 09/01/2024 Education needed on impact of smoking on wound 1 11/02/2023 Education needed related to ulceration/compromised skin integrity. 09/01/2024 documented as of this encounter Care Teams Grain Merchandiser Relationship Specialty Start Date End Date Parul Sexton MD [address] [place] [address] , [address] [facility] D/B/A: [facility] ARIADNE Coreas PCP - General 04/06/22 documented as of this encounter
--- NOTE | 2025-03-25 15:32 | AM.OFFVISNUR ---
Intake Visit Reasons: Evenity #2 Allergies blackberry Allergy (Severe, Verified 02/25/25 15:22) Rash and Hives lanolin Allergy (Severe, Verified 02/25/25 15:22) Rash and Hives latex (LATEX) Allergy (Severe, Verified 02/25/25 15:22) RASH Sulfa (Sulfonamide Antibiotics) (SULFA (SULFONAMIDE ANTIBIOTICS)) Allergy (Severe, Verified 02/25/25 15:22) JUANDICE tree nut (TREE NUT) Allergy (Severe, Verified 02/25/25 15:22) ANAPHYLAXIS rasberries Allergy (Severe, Uncoded 02/25/25 15:22) Rash and Hives Tetanus Allergy (Severe, Uncoded 02/25/25 15:22) Rash and Hives Office Meds romosozumab-aqqg 210 mg/2.34 mL(105 mg/1.17 mL x2)subcutaneous syringe Performing Provider: Kalee Feng MD Performing Location[place] [facility] [place] Administered by: Madiha Telles RN on 03/25/25 15:32 Dose Route Admin Location Dispensed Lot Number Expiration Date [facility] Hand Tier 210 mg subcut bilat 2.34 mL [id number] 06/23/27 31561-376-12 AMGEN Total Dispensed Waste 2.34 mL 0 % Comments: Patient tolerated injection well. Patient denies any adverse reactions to first injection. Patient scheduled for next injection in x4 weeks. Assessment & Plan Assessment & Plan Orders: Orders AMB Romosozumab Injection Patient Supplied Today M81.0 - Age-related osteoporosis without current pathological fracture Coding
== END 2025-03-25 15:26 | disposition home or self-care (01) ==
LOC: HO.ENCR 14:55
PROVIDERS: PCP Internal Medicine; Visit Provider Student in an Organized Health Care Education/Training Program
DX: M81.0 Age-related osteoporosis without current pathological fracture (principal)

== ENCOUNTER → 2025-03-25 14:54 | Outpatient (BNVA) | payer MEDICARE, BC, MEDICAID, SELFPAY | PROVIDERS: PCP Internal Medicine; Visit Provider Student in an Organized Health Care Education/Training Program | DX: M81.0 Age-related osteoporosis without current pathological fracture (principal) | CPT/HCPCS: 96372; J3111 ==

== ENCOUNTER 2025-04-22 14:53 | Outpatient (AMB) | payer MEDICARE, BC, MEDICAID, SELFPAY ==
--- OUTSIDE RECORDS SUMMARY | 2025-04-22 15:38 | XMS_ITS | Encounter Summary ---
Author Organization [facility] Address [address] [place] [address] Care Team Providers Care Die Holder Name Role Phone Parul Sexton MD Primary Care Provider [phone] Encounter Details Date Type Department Care Team (Late Contact Info) Description 02/12/2025 Lab Requisition [facility] - Main Lab [address] [facility] [place] [address] Imer Bolden MD [address] [facility] [address] [place] [address] Urinary tract infection, site not specified Social [...] Info) Description 06/09/2025 10:00 AM EDT Appointment [facility] [address] 2nd [place] [phone] 08/18/2025 3:00 PM EST Office Visit [facility] [address] [place] [address] Charlie Grigsby MD [address] [facility] [address] [place] [address] documented as of this encounter [...] Proteus mirabilis(A) MIGUEL 02/14/2025 9:50 AM EDT [facility] Comment: The organism value for this result has been updated. These results have been appended to the previously preliminary verified report. Edited result: Previously reported as Proteus species on 02/13/2025 at 1046 EDT. Culture, Bacterial ID and Sensitivity Pseudomonas aeruginosa(A) MIGUEL 02/14/2025 9:50 AM EDT [facility] Comment: The organism value for [...] MICROBIOLOGY - G ENERAL ORDERABLES Final Result [facility] [address] [place] [address], documented in this encounter Visit Diagnoses Diagnosis Urinary tract infection, site not specified documented in this encounter Additional Health Concerns Active Problems Noted Date Diagnosed Date Impaired Tissue 09/01/2024 Education needed on impact of smoking on wound 1 11/02/2023 Education needed related to ulceration/compromised skin integrity. 09/01/2024 documented as of this encounter Care Teams Die Holder Relationship Specialty Start Date End Date Parul Sexton MD [address] [place] [address] , [address] [facility] D/B/A: [facility] ARIADNE Coreas PCP - General 04/06/22 documented as of this encounter
--- OUTSIDE RECORDS SUMMARY | 2025-04-22 15:38 | XMS_ITS | Clinical Summary ---
Author Organization [facility] Address [address] [place] [address] Care Team Providers Care Community Health Representative Name Role Phone Parul Vieira MD Primary [...] PO) Take by mouth. 0 Acti ve [place]-3-6-9 CAPS Take by mouth. 0 Acti ve [...] 2 - PCV) 2024 07/08/2009 Influenza Vaccine (#1) 2025 5, 06/24/2014, 07/21/2013, Additional history exists RSV Adult [...] age to complete this topic Care Teams Community Health Representative Relationship Specialty Start Date End Date Parul Vieira MD [address] [facility] , [address] [facility] D/B/A: [facility] [place] [address] PCP - General Internal Medicine 04/06/22
--- NOTE | 2025-04-22 15:54 | AM.OFFVISNUR ---
Intake Visit Reasons: Evenity #3 Allergies blackberry Allergy (Severe, Verified 02/25/25 15:22) Rash and Hives lanolin Allergy (Severe, Verified 02/25/25 15:22) Rash and Hives latex (LATEX) Allergy (Severe, Verified 02/25/25 15:22) RASH Sulfa (Sulfonamide Antibiotics) (SULFA (SULFONAMIDE ANTIBIOTICS)) Allergy (Severe, Verified 02/25/25 15:22) JUANDICE tree nut (TREE NUT) Allergy (Severe, Verified 02/25/25 15:22) ANAPHYLAXIS rasberries Allergy (Severe, Uncoded 02/25/25 15:22) Rash and Hives Tetanus Allergy (Severe, Uncoded 02/25/25 15:22) Rash and Hives Office Meds romosozumab-aqqg 210 mg/2.34 mL(105 mg/1.17 mL x2)subcutaneous syringe Performing Provider: Kalee Feng MD [place] [facility] [place] Administered by: Betty Rucker RN on 04/22/25 15:54 Dose Route Admin Location Dispensed Lot Number Expiration Date [facility] Psychodramatist 210 mg subcut bilateral upper arms 2.34 mL [id number] 06/23/27 20627-420-62 AMGEN Total Dispensed Waste 2.34 mL 0 % Comments: Pt accompanied by . No adverse reactions reported from previous injection. Pt did mention a little bit of pain on the top of her forearm but did explain that she does weight exercises daily and could potentially be a muscle strain. I advised her that should it get worse to call the office. Pt tolerated injection well. No further questions at this time, pt was scheduled in 4 weeks for next injection. Assessment & Plan Assessment & Plan Orders: Orders AMB Romosozumab Injection Patient Supplied Today M81.0 - Age-related osteoporosis without current pathological fracture Coding
== END 2025-04-22 15:53 | disposition home or self-care (01) ==
LOC: HO.ENCR 14:54
PROVIDERS: PCP Internal Medicine; Visit Provider Student in an Organized Health Care Education/Training Program
DX: M81.0 Age-related osteoporosis without current pathological fracture (principal)

== ENCOUNTER → 2025-04-22 14:53 | Outpatient (BNVA) | payer MEDICARE, BC, MEDICAID, SELFPAY | PROVIDERS: PCP Internal Medicine; Visit Provider Student in an Organized Health Care Education/Training Program | DX: M81.0 Age-related osteoporosis without current pathological fracture (principal); Z79.899 Other long term (current) drug therapy | CPT/HCPCS: 96372; J3111 ==

== ENCOUNTER 2025-05-07 14:44 | Outpatient (AMB) | payer MEDICARE, BC, MEDICAID, SELFPAY ==
--- NOTE | 2025-05-07 14:51 | A.OFFVIS_ITS ---
Vital Signs 05/07/25 14:52 Height 5 ft 8 in BP 90/64 Blood Pressure Location Rt brachial Position Sitting Pulse 89 Pulse Source Pulse Oximeter Pulse Oximetry (%) 97 Oxygen Delivery Method Room Air Intake Visit Reasons: Other disorders of phosphorus metabolism Intake Note: Patient present today for other disorders of phosphorus metabolism. Trauma Counsellor Required: No Accompanied by: Spouse Allergies blackberry Allergy (Severe, Verified 05/07/25 14:58) Rash and Hives lanolin Allergy (Severe, Verified 05/07/25 14:58) Rash and Hives latex (LATEX) Allergy (Severe, Verified 05/07/25 14:58) RASH Sulfa (Sulfonamide Antibiotics) (SULFA (SULFONAMIDE ANTIBIOTICS)) Allergy (Severe, Verified 05/07/25 14:58) JUANDICE tree nut (TREE NUT) Allergy (Severe, Verified 05/07/25 14:58) ANAPHYLAXIS rasberries Allergy (Severe, Uncoded 05/07/25 14:58) Rash and Hives Tetanus Allergy (Severe, Uncoded 05/07/25 14:58) Rash and Hives Medication List - Last Reconciled 05/07/25 by Kalee Feng MD albuterol sulfate 1.25 mg (3 mL) inhalation QID albuterol sulfate 90 mcg/actuation 2 puffs inhalation Q6H PRN ascorbate calcium (vitamin C) 500 mg PO DAILY baclofen 10 mg PO TID baclofen 20 mg PO BEDTIME cholecalciferol (vitamin D3) 50 mcg PO DAILY clindamycin phosphate 1 supp vaginal BEDTIME 3 days yujgjdqby-Gi-mvgge-mushroomcmb [id number] jr-mpb-jk-mg tabs PO cyanocobalamin (vitamin B-12) 1,000 mcg PO DAILY diaper,brief,adult,disposable Size large disposable gloves As directed epinephrine IM DIRECTED Evenity (romosozumab-aqqg) KYUNG 0 210 mg subcutaneously; every month for 12 reji hs NS gel dressing (Skintegrity Hydrogel topical) As directed applied to wound daily magnesium gluconate 30 mg PO DAILY methenamine hippurate 1 g PO BID midodrine 5 mg PO TID 30 days multivitamin 1 tab PO DAILY nebulizers As directed omega-3 fatty acids 500 mg PO DAILY peg 400-propylene glycol 0.4-0.3 % (Systane Gel) 1 drp ophthalmic (eye) BEDTIME 30 days quetiapine (Seroquel) 25 mg PO TID 90 days rituximab (Rituxan) IV [robu cushion As directed] sertraline 50 mg PO DAILY underpads As directed [wheelchair motorized with Roku cushion As directed] zinc gluconate 15 mg PO DAILY HPI Comments Details: 63-year-old female here today for follow up of osteoporosis. HPI from initial visit She was being evaluated by Rheumatology when she was noted to have low phosphorus levels and was referred to us to get evaluated for secondary causes of osteoporosis. BMD January 2024 showed normal BMD of the spine, severe osteoporosis of the hip with T score -4.4 at the left femoral neck and -5.1 at the total hip She follows with Dr. Jabari Roth , at [facility] in [place]. Neurology. She has a diagnosis of neuromyelitis optica spectrum disorder ( autoimmune) . Diagnosed June 2006. In the past she used to be on steroids, IV steroids every 4 to 5 months off now since 10 years but was on them for 10 or so years, now on Rituximab every 6 months . She is limited mobility in her lower extremities . April 2008 she lost lower limb mobility suddenly also has history of melanoma 2012 , upper right thigh , surgically removed . No other cancer history , no radiation therapy Osteoporosis new pt evaluation Post menopausal osteoporosis: Diagnosed in 2023 Fracture History: no fractures, no falls Height loss:no: 5 ft 8 inches Back pain: none Pharmacotherapeutic hx: none Drug holiday none Family history: no history of osteoporosis, neither parent fractured hip Estrogen use: menarche 10 years. natural menopausal aged 45 years . used to have hot flashes at that time too. no HRT. on OCPS for 3 years in early 20s. 2 pregnancies, both live births. Menstrual hx: used to get them every 26 days Secondary risk factors: Steroid use: In the past she used to be on steroids, IV steroids every 4 to 5 months off now since 10 years but was on them for 10 or so years, Hyperthyroidism: Neg Seizure medication use: phenobarbital for a year when she was 17 years old Chemo or Radiation use: Neg Heparin Use: used to be on heparin when she was hospitalized for 10 months History of eating disorder: Negative intermodal dispatcher immobilization: yes ,She has a diagnosis of neuromyelitis optica spectrum disorder ( autoimmune) . Diagnosed June 2006. In the past she used to be on steroids, IV steroids every 4 to 5 months off now since 10 years but was on them for 10 or so years, now on Rituximab every 6 months . She is limited mobility in her lower extremities . April 2008 she lost lower limb mobility suddenly History of kidney stones or disease: yes, lithotripsy 2018, has a suprapubic catheter PI Use: none Chronic inflammatory lung disease: Negative Chronic inflammatory bowel disease: Negative Daily calcium intake: no supplements, no milk , cheese once a week , yogurt none Vitamin D intake: 2000 units daily Exercise:none Smoking history: smoked till 19 years of age , social smoker Dental: Has regular dental cleaning, no issues, eveyr 6 months, has some root canals, no planned procedures at this time No diarrhea currenlty, but she does have some loose stools when she goes on antibiotcs intermittenly cannot recall if at the time of labs in May was having diarrhea. No history of DM, not on insulin. She seems to be breathing normally but says her neurological disorder can cause breathing disorders. Trach from 2008 to 2019. Labs from 09/02/2024 showed that her phosphorus level normalized to 3.1. Other secondary workup for osteoporosis also unremarkable, normal calcium of 9.5, with albumin of 4, normal ionized calcium of 5.4, normal magnesium level. Normal thyroid function. Vitamin-D level of 51.9. Normal kidney function with a EGFR greater than 60. CTX level of 340, showing that resorption is not that high, she would rather benefit from an anabolic agent. Bone specific alkaline phosphatase level of 15.4. 24 hour urine calcium on the lower side at 43 as well as low 24 hour urine phosphorus. Likely due to poor nutritional intake calcium and phosphorus. Up-to-date with dental care, last visit last month Continues on vitamin-D 2000 units daily Interval history Started in Evenity February 2025 Continues on this Continues on vitamin-D 2000 units daily Has been having trouble tolerating calcium supplements, reports aches and pains with different calcium supplements but she has been drinking oat milk fortified with calcium and cheese here and there No fractures Up-to-date with dental care Physical exam General: sitting comfortably in no acute distress HEENT: normocephalic/atraumatic, moist oral mucosa Neck: supple, symmetrical Cardiac: normal heart sounds Pulm: normal breath sounds B/L, no added breath sounds Abd: not distended, no tenderness Laboratory Tests 11/06/18 01/26/21 03/03/22 00:00 10:50 16:07 Calcium 9.1 9.4 Phosphorus Magnesium Albumin 3.5 3.8 25-OH Vitamin D Total 55 TSH PTH Intact 01/08/24 02/12/24 06/17/24 15:25 15:09 14:34 Calcium 9.3 9.7 Phosphorus 2.3 L Magnesium 2.0 Albumin 3.8 3.8 25-OH Vitamin D Total 50.2 55.5 TSH 1.30 PTH Intact 81.4 H Laboratory Tests 06/27/24 09/02/24 09/02/24 14:56 08:30 13:30 Sodium Potassium Creatinine Estimated GFR Calcium Ionized Calcium Phosphorus Magnesium Alk Phos Bone Specific Total Protein (PEP) Albumin Albumin (PEP) Ukfkn-3-Vwflbtzij Zxbl-1-Jjbjknrz Guzc-2-Rwyubxub Gamma Globulins Collgn I C-Telopeptide 367 25-OH Vitamin D Total TSH PTH Intact Ur Random Phosphorus 12.3 Ur Random Calcium 2.3 Ur 24 Hour Volume 2700 Urine Creatinine 17.25 Ur Creatinine mg/dL 13.39 Ur Creatinine 24 Hour 0.4 L Ur Phosphorus 24 Hr 0.3 L Ur Calcium 24 Hr 43 Calcium/Creat 24 Hr 107 09/02/24 14:46 Sodium 138 Potassium 4.0 Creatinine 0.51 Estimated GFR > 60 Calcium 9.5 Ionized Calcium 5.4 Phosphorus 3.1 Magnesium 2.2 Alk Phos Bone Specific 15.4 Total Protein (PEP) 6.7 Albumin 3.7 Albumin (PEP) 4.0 Xutho-3-Etojdpibp 0.6 Gmag-5-Ugdcaeqr 0.4 Jfep-7-Bmbxfpby 0.5 Gamma Globulins 1.0 Collgn I C-Telopeptide 340 25-OH Vitamin D Total 51.9 TSH 2.07 PTH Intact 55.2 Ur Random Phosphorus Ur Random Calcium Ur 24 Hour Volume Urine Creatinine Ur Creatinine mg/dL Ur Creatinine 24 Hour Ur Phosphorus 24 Hr Ur Calcium 24 Hr Calcium/Creat 24 Hr Laboratory Tests 03/03/25 15:36 Creatinine 0.41 L Estimated GFR > 60 Calcium 9.2 Albumin 3.8 25-OH Vitamin D Total 52.9 BONE DENSITOMETRY 02/12/24 CLINICAL INDICATION: Menopause. COMPARISON: This is the patient's baseline examination. TECHNIQUE: Using a [employer] (formerly [employer]) DXA System (software version: 13.1) manufactured by [employer], dual-energy x-ray absorptiometry was performed of the lumbar spine and left hip. The images are of good technical quality. Summary results are attached. FINDINGS: LEFT FEMUR, NECK: BMD 0.424 g/cm2, Z-score -3.1, T-score -4.4, osteoporosis. LEFT FEMUR, TOTAL: BMD 0.370 g/cm2, Z-score -4.0, T-score -5.1, osteoporosis. AP SPINE L1-L4: BMD 1.246 g/cm2, Z-score 1.9, T-score 0.6, normal. IDENTIFIED RISK FACTORS: Menopause, osteoporosis, rheumatoid arthritis, glucocorticoids (chronic). HISTORY OF FRACTURE: None listed. MEDICATIONS: Calcium, vitamin D. MM/XR DEXA axial skeleton IMPRESSION: 1. DIAGNOSIS: Osteoporosis based on the lowest T-score value of -5.1 in the total femur applying World Health Organization criteria. 2. 10-YEAR FRACTURE RISK PREDICTION, FRAX: According to the guidelines, FRAX calculation should only be performed on patients in the osteopenia bone density category. Therefore, FRAX was not performed on this patient. 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 Thigh shingles Vegetarian diet COVID-19 Diarrhea Edema of right foot Asthma-COPD overlap syndrome Breast pain, left Decubitus ulcer, stage 4 Mild depression Wheelchair bound Hypovitaminosis D B12 deficiency Muscle spasm Idiopathic hypotension Neuromyelitis Surgical History Tracheostomy status Status post insertion of percutaneous endoscopic gastrostomy (PEG) tube History of lipoma Family History Father Diabetes Bone cancer Mother Diabetes Social History Housing: House Alcohol intake: never Patient Tobacco Use Status: Former Tobacco user Tobacco use type: Cigarette Years Smoked: 2 years e-Cigarette/Vaping Use: Never Used Second Hand Smoke Exposure: No service: No Current occupational status: disabled Cognitive needs: Yes Hearing needs: Yes Vision needs: Yes Physical Exam Vital Signs: Last Vital Signs Pulse 89 05/07/25 14:52 BP 90/64 05/07/25 14:52 Pulse Ox 97 05/07/25 14:52 Oxygen Delivery Method Room Air 05/07/25 14:52 Assessment & Plan Assessment & Plan (1) Osteoporosis: Code(s): M81.0 - Age-related osteoporosis without current pathological fracture Category: Medical Qualifiers: Osteoporosis type: age-related Presence of current pathological fracture: without current pathological fracture Qualified Code(s): M81.0 - Age- related osteoporosis without current pathological fracture Plan: 63-year-old female her today for initial evaluation of osteoporosis. Diagnosed with osteoporosis in January 2024 on bone density scan which showed severe osteoporosis of the hip T-score of-4.4 at the left femoral neck and-5.1 at the total hip. Normal bone density of the spine. She has never been on therapy for osteoporosis before this was her 1st bone density scan. High-risk factors for osteoporosis include immobility due to neurologic disorder in the lower limbs, postmenopausal, age, long-term steroid used in the past for autoimmune neurologic condition, poor nutritional intake of calcium. She also saw a Rheumatology recently, and her blood work from May 2024 showed low phosphorus of 2.3, normal calcium of 9.7 with albumin of 3.8, vitamin-D of 5.5, PTH mildly elevated at 81.4. Normal kidney function. Phosphorus levels subsequently normalized, likely she had diarrhea at the time of that workup. Labs from 09/02/2024 showed that her phosphorus level normalized to 3.1. Other secondary workup for osteoporosis also unremarkable, normal calcium of 9.5, with albumin of 4, normal ionized calcium of 5.4, normal magnesium level. Normal thyroid function. Vitamin-D level of 51.9. Normal kidney function with a EGFR greater than 60. CTX level of 340, showing that resorption is not that high, she would rather benefit from an anabolic agent. Bone specific alkaline phosphatase level of 15.4. 24 hour urine calcium on the lower side at 43 as well as low 24 hour urine phosphorus. Likely due to poor nutritional intake calcium and phosphorus. I discussed conservative measures including adequate calcium intake, adequate vitamin D levels as well as the role of weightbearing exercises in general being good for bone health. Given she does not have mobility in her lower limbs, we briefly discussed role of resistance training on lower extremity muscles, patient is has been was with her during this visit in suggested a bgj-hl-igzvx exercise machine. In addition to conservative management with calcium and vitamin D; I do believe she would benefit from osteoporosis therapy in terms of reducing future fracture risk. Given severity of osteoporosis in the hip, she would benefit from an anabolic agent. While Mikala and Ellao do not have very strong data for improvement in bone density at the hip, Evenity has shown improvement in bone density by 12% in the spine and 5% in the hip. Started autoimmunity February 2025. Continues on it without any issues. Plan: -continue Evenity 210 mg monthly injection for 12 months' course -continue vitamin-D 2000 units daily -improve nutritional intake of calcium to accommodate at least 800-1000 mg in a day -try for weight-bearing exercise on the lower limbs with resistance bands -follow up in 6 months with fasting blood work -next bone density would be due January 2026 - Plan See above Orders: Orders Albumin Level 10/26/25 M81.0 - Age-related osteoporosis without current pathological fracture Calcium, Ionized 10/26/25 M81.0 - Age-related osteoporosis without current pathological fracture Magnesium 10/26/25 M81.0 - Age-related osteoporosis without current pathological fracture Phosphorus 10/26/25 M81.0 - Age-related osteoporosis without current pathological fracture Collagen Type I C-Telopeptide 10/26/25 M81.0 - Age-related osteoporosis without current pathological fracture Vitamin D 25-OH Total 10/26/25 M81.0 - Age-related osteoporosis without current pathological fracture Alkaline Phosphatase Bone 10/26/25 M81.0 - Age-related osteoporosis without current pathological fracture Calcium 10/26/25 M81.0 - Age-related osteoporosis without current pathological fracture Patient Instructions: -continue Evenity monthly -continue vitamin-D 2000 units daily -improve nutritional intake of calcium to accommodate at least 800-1000 mg in a day -try for weight-bearing exercise on the lower limbs with resistance bands Do fasting blood work onsite case manager 1-2 weeks prior to fup Coding Level of Care Code Est Pt Level 3 (58581) Diagnoses Age-related osteoporosis without current pathological fracture M81.0 Osteoporosis type: age-related Presence of current pathological fracture: without current pathological fracture
[2025-05-07 14:52] VITALS: BP 90/64; PULSE 89; O2SAT 97
--- OUTSIDE RECORDS SUMMARY | 2025-05-07 15:22 | XMS_ITS | Encounter Summary ---
Author Organization [facility] Address [address] [place] [address] Care Team Providers Care Lmft Name Role Phone Parul Sexton MD Primary Care Provider [phone] Encounter Details Date Type Department Care Team (Late Contact Info) Description 02/12/2025 Lab Requisition [facility] - Main Lab [address] [facility] [place] [phone] Imer Bolden MD [address] [address] Urinary tract infection, site not specified Social [...] Department Care Team (Late Contact Info) Description 05/18/2025 2:00 PM EDT Clinical Support [facility] [address] [place] [phone] 06/09/2025 10:00 AM EDT Appointment [facility] [address] [place] [phone] 08/18/2025 3:00 PM EST Office Visit [facility] [address] [place] [address] Charlie Grigsby MD [address] [place] [address] documented as of this encounter [...] Proteus mirabilis(A) MIGUEL 02/14/2025 9:50 AM EDT [facility] Comment: The organism value for [...] MICROBIOLOGY - G ENERAL ORDERABLES Final Result [facility] [address] [place] [address], documented in this encounter Visit Diagnoses Diagnosis Urinary tract infection, site not specified documented in this encounter Additional Health Concerns Active Problems Noted Date Diagnosed Date Impaired Tissue 09/01/2024 Education needed on impact of smoking on wound 1 11/02/2023 Education needed related to ulceration/compromised skin integrity. 09/01/2024 documented as of this encounter Care Teams Lmft Relationship Specialty Start Date End Date Parul Sexton MD 2 [facility] , [address] Physician Associ D/B/A: [facility] [place], [place] PCP - General 04/06/22 documented as of this encounter
--- OUTSIDE RECORDS SUMMARY | 2025-05-07 15:22 | XMS_ITS | Clinical Summary ---
Author Organization [facility] Address [address] [place] [address] Care Team Providers Care Milling Planer Operator Name Role Phone Parul Vieira MD Primary [...] PO) Take by mouth. 0 Acti ve [place]-3-6-9 CAPS Take by mouth. 0 Acti ve [...] age to complete this topic Care Teams Milling Planer Operator Relationship Specialty Start Date End Date Parul Vieira MD 2 [facility] , [address] [facility] D/B/A: [facility] [place] [address] PCP - General Internal Medicine 04/06/22
== END 2025-05-07 15:43 | disposition home or self-care (01) ==
LOC: HO.ENCR 14:45
PROVIDERS: PCP Internal Medicine; Visit Provider Student in an Organized Health Care Education/Training Program
DX: M81.0 Age-related osteoporosis without current pathological fracture (principal)
CPT/HCPCS: 99213

== ENCOUNTER → 2025-05-07 14:44 | Outpatient (BNVA) | payer MEDICARE, BC, MEDICAID, SELFPAY | PROVIDERS: PCP Internal Medicine; Visit Provider Student in an Organized Health Care Education/Training Program | DX: M81.0 Age-related osteoporosis without current pathological fracture (principal) | CPT/HCPCS: 99212 ==

== ENCOUNTER 2025-05-20 14:23 | Outpatient (AMB) | payer MEDICARE, BC, MEDICAID, SELFPAY ==
--- OUTSIDE RECORDS SUMMARY | 2025-05-18 14:00 | XMS_ITS | Encounter Summary ---
Author Organization [facility] Address [address] [place] [address] Care Team Providers Care Clean Room Assembler Name Role Phone Parul Sexton MD Primary Care Provider [phone] Reason for Visit * Reason Comments Wound Care Encounter Details Date Type Department Care Team (Late st Contact Info) Description 05/18/2025 2:00 PM EDT Office Visit [facility] [address] [place] [phone] Gladys Tomas MD [address] [place] [phone] Stage II pressure ulcer of right buttock (CMS/HCC V24, CMS/HCC V28) (Primary Dx) Social History Tobacco Use Types Packs/Day Years [...] Sign Reading Time Taken Comments Blood Pressure 96/57 05/18/2025 2:18 PM EDT Pulse 88 05/18/2025 2:18 PM EDT Temperature 36.7 C (98 F) 05/18/2025 2:18 PM EDT Respiratory Rate 16 05/18/2025 2:18 PM EDT Oxygen Saturation 98% 05/18/2025 2:18 PM EDT Inhaled Oxygen Concentration - - Weight - - Height - - Body Mass Index - - documented in this encounter Progress Notes * Marielos Malagon RN - 05/18/2025 2:00 PM EDT PROVIDER ORDERS Go to ER if you are presenting with fever, chills, increased redness, pain, swelling, warmth aroundwound area and/or foul smelling odor. If you have any questions or concerns, please contact the [facility] [place] at . Follow up(s)/ Referrals: N/A Custodial: Home care: Lyudmila PENG Additional Orders: Increase protein in your diet to help promote wound healing Edema Control: (If your compression wrap(s) feel to tight, please elevate your leg(s) about heart level. If your wrap(s) are becoming painful and/or you loose sensation of toes/ are having toe discoloration (a change from your baseline), please remove / unwrap compression and notify [facility] at . ) N/A Offloading: Roho cushion for wheelchair, Turn and reposition every 2 hours. Reposition ever hour while up in chair., Limit pressure to wound as much as possible Negative Pressure Wound Therapy: (If wound vac is off/non functioning for more than 2 hours, please remove vac dressing, apply a wetto dry dressing and notify your home care agency) N/A Cellular/Tissue Based Products: N/A Bathing / Showering / Hygiene: May shower without wound dressing. Non-wound Condition/ Other Skin Care: N/A Wound Location(s): Wound #1 (Right distal buttock): Cleanser: Cleanse with Normal Saline Periwound: N/A Topical: Woun'dres- Apply a thin layer to wound bed Primary dressing: N/A Secondary dressing: Zetuvit foam with border dressing Secure with: N/A Compression Therapy: N/A Dressing Change Frequency: Daily * Gladys Tomas MD - 05/18/2025 2:00 PM EDT Images from the original note were not included. [facility] at [address] [address] New Patient Visit Visit Date: 05/18/2025 Patient Name: Vivi Ayala Date of : 1960 PCP: Parul Sexton MD HPI:Vivi is a 64 years old woman with history of neuromyelitis optica, hemiparesis arthritis COPD,comes in for recurrence of pressure ulcer of the right buttock. Patient is primarily bed to chair. He is accompanied by her . She has been using Woun'Dres on it. Patient has had ulcer in the past in the same area. Assessment and Plan: Stage II pressure ulcer of right buttock (CMS/[facility] V24, CMS/HCC V28) (Primary) Wound cleaned with saline continue wound dressed dressing. Recheck in 2 weeks. All questions were answered to her satisfaction. She was counseled regarding my impressions, instructions for management, and the importance of compliance with treatment. Follow up in about 2 weeks (around 06/01/2025) for Follow up with Norbert Gross. >>>>>>>>>>>>>>>>>>>>>>>>>>>>>>>>>>>>>>>>>>>>>>>>>>> Past medical history: She has a past medical history of Arthritis, COPD (chronic obstructive pulmonary disease) (CMS/HCC V24, CMS/HCC V28), GERD (gastroesophageal reflux disease), Melanoma (CMS/HCC V24, CMS/HCC V28), Migraines, Neuromyelitis optica spectrum disorder (CMS/HCC V24, CMS/HCC V28), Osteoporosis, Tinnitus, and TMJ (dislocation of temporomandibular joint). Past surgical history: She has a past surgical history that includes Other surgical history; Tracheostomy tube placement (10/2019); Tracheostomy closure (03/2020); Other surgical history; Other surgical history; and Polypectomy. Allergies: She is allergic to blackberry, coconut, raspberry, sulfa (sulfonamide antibiotics), tree nuts, levofloxacin, pepper (genus capsicum), lanolin, latex, and silk. Medications: She has a current medication list which includes the following prescription(s): albuterol, albuterol hfa, ascorbic acid, baclofen, botox, calcium citrate, cholecalciferol, cyanocobalamin, epinephrine, omega 3-6-9, magnesium gluconate, methenamine hippurate, multivitamin with minerals, quetiapine, rituximab, evenity, sertraline, zinc sulfate, and cephalexin. Social History: The patient reports that she quit smoking about 46 years ago. Her smoking use included cigarettes. She has never used smokeless tobacco. She reports that she does not drink alcohol and does not use drugs.. Counseling given: Not Answered Family medical history: The patient's family history includes Cancer in her father, paternal grandfather, and son; Diabetesin her father and mother; Stroke in her mother and paternal grandmother. Review of Systems: Review of Systems Physical Exam: Alert oriented. HEENT. Normocephalic sclera white throat clear tongue midline. Neck well-healed tracheostomy scar no adenopathy. Lungs clear to auscultation. Heart regular rhythm. Extremity paralysis lower extremities able to move upper extremity. No edema no leg ulcer. Back stage II pressure ulcer right buttock pink granulation tissue. Periwound skin is intact no cellulitis. Vital Signs: Visit Vitals BP 96/57 Pulse 88 Temp 36.7 ??C (98 ??F) Resp 16 WOUND ASSESSMENT If photograph of wound not visible on this note, please check under Media tab. Wound Pressure Injury 05/18/25 Buttocks Right (Active) Date First Assessed: 05/18/25 Primary Wound Type: Pressure Injury Present on Admission: Yes Wound Approximate Age at First Assessment (Weeks): 4 weeks Hand Hygiene Completed: Yes Location: Buttocks Wound Location Orientation: Right Assessments 05/18/2025 2:37 PM Wound Image Wound Bed Tissue Assessment Granulation Mara-Wound Assessment Scarred Shape Irregular Wound Length (cm) 0.3 cm Wound Width (cm) 0.8 cm Wound Surface Area (cm^2) 0.24 cm^2 Wound Depth (cm) 0.1 cm Wound Volume (cm^3) 0.024 cm^3 Drainage Description Serosanguineous Drainage Amount Small Treatments Cleansed Dressing Collagen Dressing Status Removed Wound Bed Granulation (%) 90 % Wound Bed Epithelialization (%) 10 % Wound Bed Slough (%) 0 % Wound Bed Eschar (%) 0 % Tunneling 0 cm Undermining 0 cm Edges Attached edges;Well-defined edges Pressure Injury Stage Stage 2 No associated orders. PHYSICIAN ORDERS Patient Instructions PROVIDER ORDERS Go to ER if you are presenting with fever, chills, increased redness, pain, swelling, warmth aroundwound area and/or foul smelling odor. If you have any questions or concerns, please contact the [facility] [place] at . Follow up(s)/ Referrals: N/A Custodial: Home care: Lyudmila PENG Additional Orders: Increase protein in your diet to help promote wound healing Edema Control: (If your compression wrap(s) feel to tight, please elevate your leg(s) about heart level. If your wrap(s) are becoming painful and/or you loose sensation of toes/ are having toe discoloration (a change from your baseline), please remove / unwrap compression and notify [facility] [place] at . ) N/A Offloading: Roho cushion for wheelchair, Turn and reposition every 2 hours. Reposition ever hour while up in chair., Limit pressure to wound as much as possible Negative Pressure Wound Therapy: (If wound vac is off/non functioning for more than 2 hours, please remove vac dressing, apply a wetto dry dressing and notify your home care agency) N/A Cellular/Tissue Based Products: N/A Bathing / Showering / Hygiene: May shower without wound dressing. Non-wound Condition/ Other Skin Care: N/A Wound Location(s): Wound #1 (Right distal buttock): Cleanser: Cleanse with Normal Saline Periwound: N/A Topical: Woun'dres- Apply a thin layer to wound bed Primary dressing: N/A Secondary dressing: Zetuvit foam with border dressing Secure with: N/A Compression Therapy: N/A Dressing Change Frequency: Daily 05/18/2025 4:04 PM EDT Gladys Tomas MD * Rosi Hidalgo RN - 05/18/2025 2:00 PM EDT Discharge Patient directed to check out at front office coordinator and collect visit summary with wound care directions and book follow up as directed. Dressings applied: Wound #1 (Right distal buttock): Cleanser: Cleanse with Normal Saline Topical: Hydrogrel- Apply a thin layer to wound bed Secondary dressing: Zetuvit foam with border dressing Dressing technique was demonstrated and explained. Patient questions answered. Pt discharge from wound care center without issue or incidence. documented in this encounter Plan of Treatment Upcoming Encounters Date Type Department Care Team (Late st Contact Info) Description 06/01/2025 2:30 PM EDT Clinical Support [facility] [address] [place] [phone] 06/09/2025 10:00 AM EDT Appointment [facility] Infusion Center [address] [facility] [address] 2nd [place] [phone] 08/18/2025 3:00 PM EST Office Visit [facility] [address] [place] [phone] Charlie Grigsby MD [address] [place] [phone] documented as of this encounter Goals Goal [...] ulceration/compr omised skin integrity. Marielos Brice RN Decrease Wound Volume by X% by date (in notes) Care Plan Impaired Tissue Marielos Brice RN Patient and Caregiver Understand Wound Care Education Care Plan Impaired Tissue Marielos Brice RN [...] ulceration/compr omised skin integrity. Marielos Brice RN documented as of this encounter Visit Diagnoses Diagnosis Stage II pressure ulcer of right buttock ([facility] V24, [facility] V28)- Primary documented in this encounter Historical Medications * This list may reflect changes made after this encounter. romosozumab-aqqg (Evenity) Inject 2.34 mL (210 mg total) under the skin every 30 (thirty) days. added in this encounter Additional Health Concerns Active Problems Noted Date Diagnosed Date Impaired Tissue 09/01/2024 Education needed on impact of smoking on wound 1 11/02/2023 Education needed related to ulceration/compromised skin integrity. 09/01/2024 Impaired Tissue 05/18/2025 Education needed on impact of smoking on wound 0 05/18/2025 Education needed related to ulceration/compromised skin integrity. 05/18/2025 documented as of this encounter Care Teams Clean Room Assembler Relationship Specialty Start Date End Date Parul Sexton MD [address] [facility] [address], [address] [facility] Physician Associ D/B/A: [facility] ARIADNE Coreas PCP - General 04/06/22 documented as of this encounter
--- NOTE | 2025-05-20 14:43 | AM.OFFVISNUR ---
Intake Visit Reasons: Evenity #4 Allergies blackberry Allergy (Severe, Verified 05/07/25 14:58) Rash and Hives lanolin Allergy (Severe, Verified 05/07/25 14:58) Rash and Hives latex (LATEX) Allergy (Severe, Verified 05/07/25 14:58) RASH Sulfa (Sulfonamide Antibiotics) (SULFA (SULFONAMIDE ANTIBIOTICS)) Allergy (Severe, Verified 05/07/25 14:58) JUANDICE tree nut (TREE NUT) Allergy (Severe, Verified 05/07/25 14:58) ANAPHYLAXIS rasberries Allergy (Severe, Uncoded 05/07/25 14:58) Rash and Hives Tetanus Allergy (Severe, Uncoded 05/07/25 14:58) Rash and Hives Office Meds romosozumab-aqqg 210 mg/2.34 mL(105 mg/1.17 mL x2)subcutaneous syringe Performing Provider: Kalee Feng MD Performing Location: [facility] Administered by: Betty Rucker RN on 05/20/25 14:43 Dose Route Admin Location Dispensed Lot Number Expiration Date [facility] Warp Knitter 210 mg subcut bilateral upper arms 2.34 mL [id number] 08/23/27 62031-939-53 [facility] Total Dispensed Waste 2.34 mL 0 % Comments: No adverse reactions reported from previous injection. Pt tolerated injection well. Pt scheduled for next appt in 4 weeks. No further questions at this time. Assessment & Plan Assessment & Plan Orders: Orders AMB Romosozumab Injection Patient Supplied Today M81.0 - Age-related osteoporosis without current pathological fracture Coding
--- OUTSIDE RECORDS SUMMARY | 2025-05-20 15:28 | XMS_ITS | Clinical Summary ---
Author Organization [facility] Address [address] [place] [address] Care Team Providers Care Sox Analyst Name Role Phone Parul Vieira MD Primary [...] PO) Take by mouth. 0 Acti ve Benton-3-6-9 CAPS Take by mouth. 0 Acti ve [...] age to complete this topic Care Teams Sox Analyst Relationship Specialty Start Date End Date Parul Vieira MD [address] [facility] , [address] [facility] Physician Associ D/B/A: [facility] [place] [place] [address] PCP - General Internal Medicine 04/06/22
--- OUTSIDE RECORDS SUMMARY | 2025-05-20 15:28 | XMS_ITS | Encounter Summary ---
Author Organization [facility] Address [address] [place] [address] Care Team Providers Care Onboarding Specialist Name Role Phone Parul Sexton MD Primary Care Provider [phone] Encounter Details Date Type Department Care Team (Late Contact Info) Description 02/12/2025 Lab Requisition [facility] - Main Lab [address] [facility] [place] [phone] Imer Bolden MD [address] [address] Urinary tract infection, site not specified Social [...] Department Care Team (Late Contact Info) Description 06/01/2025 2:30 PM EDT Clinical Support [facility] W[facility] [address] [place] [phone] 06/09/2025 10:00 AM EDT Appointment [facility] Infusion Center [address] [place] [phone] 08/18/2025 3:00 PM EST Office Visit [address] [place] [address] Charlie Grigsby MD [address] [place] [phone] documented as of this encounter Goals Goal [...] Brice RN documented as of this encounter Procedures Procedure Name Priority Date/Time Associated Diagnosis Comments BACTERIAL IDENTIFICATION AND SUSCEPTIBILITY, AEROBIC Routine 02/11/2025 12:00 AM EDT Urinary tract infection, site not specified documented in this encounter Results * (ABNORMAL) Bacterial identification and susceptibility, aerobic (02/11/2025 12:00 AM EDT) Culture, Bacterial ID and Sensitivity Proteus mirabilis(A) MIGUEL 02/14/2025 9:50 AM EDT [facility] Comment: The organism value for this result has been updated. These results have been appended to the previously preliminary verified report. Edited result: Previously reported as Proteus species on 02/13/2025 at 1046 EDT. Culture, Bacterial ID and Sensitivity Pseudomonas aeruginosa(A) MIGUEL 02/14/2025 9:50 AM EDT [facility] Comment: The organism value for [...] MIGUEL >=4 ug/ml: Resistant Proteus mirabilis Nitrofurantoin MIGEUL 128 ug/ml: Resistant Proteus mirabilis Trimethoprim/Sulfame thoxazol [...] MICROBIOLOGY - G ENERAL ORDERABLES Final Result [facility] [address] [place] [address], [place] [phone] documented in this encounter Visit Diagnoses Diagnosis Urinary tract infection, site not specified documented in this encounter Additional Health Concerns Active Problems Noted Date Diagnosed Date Impaired Tissue 09/01/2024 Education needed on impact of smoking on wound 1 11/02/2023 Education needed related to ulceration/compromised skin integrity. 09/01/2024 documented as of this encounter Care Teams Onboarding Specialist Relationship Specialty Start Date End Date Parul Sexton MD 2 [facility] , [address] Physician Associ D/B/A: [facility] ARIADNE Coreas PCP - General 04/06/22 documented as of this encounter
--- OUTSIDE RECORDS SUMMARY | 2025-05-20 15:28 | XMS_ITS | Clinical Summary ---
Author Organization [facility] Address [address] [place] [phone] Phone Care Team Providers Care Chemical Weigher Name Role Phone Parul Sexton MD Primary Care Provider [phone] Allergies Active Allergy Reactions Criticality Noted Date [...] 4 (four) times a day. 4 Active cholecalciferol (VITAMIN D-3) 25 mcg (1,000 unit) tablet Take 2 tablets (2,000 Units total) by mouth 1 (one) time each day. Active cyanocobalamin (VITAMIN B-12) 2,500 mcg tablet Take 1 tablet (2,500 mcg total) by mouth 1 (one) time each day. Active EPINEPHrine (EPIPEN) 0.3 mg/0.3 mL injection Inject 0.3 mL (0.3 mg total) into the thigh if needed for anaphylaxis. Active methenamine hippurate (HIPREX) 1 gram tablet [...] (one) time each day. Active fish,bora,flax oils-om3,6,9no1 ([place] 3-6-9) 1,200 mg capsule Take 1,200 mg by mouth 1 (one) time each day. Active zinc sulfate 66 mg tablet Take 66 mg by mouth 1 (one) time each day. Active calcium citrate (CALCITRATE) 950 mg (200 mg elemental calcium) tablet Take 1 tablet (950 mg total) by mouth 1 (one) time each day. Active cephalexin (KEFLEX) 500 mg capsule Take 1 capsule (500 mg total) by mouth 4 (four) times a day. 2 A DAY FOR 7 DAYS Active baclofen (LIORESAL) 10 mg tablet Take 2 tablets (20 mg total) by mouth 2 (two) times a day. 360 each 2 5 07/06/20 25 Active romosozumab-aqq g (Evenity) Inject 2.34 mL (210 mg total) under the skin every 30 (thirty) days. Active Active Problems Problem Noted Date Diagnosed Date Pressure ulcer of right butt ock, stage 3 ([facility] [place], [facility] V28) 09/01/2024 Neuromyelitis optica spectru m disorder ([facility] [place], [facility] V28) Overview (09/01/2024): DX:Neuromyelitis optica spectrum disorder (HCC) Encounters Date Type Department Care Team Description 05/18/2025 2:00 PM EDT Office Visit [facility] W[facility] Center [address] [place] [phone] Gladys Tomas MD Stage II pressure ulcer of right buttock ([facility] [place], [facility] V28) (Primary Dx) from Last 3 Months Surgical History Surgery Date Site/Laterality Comments OTHER SURGICAL HISTORY PROCEDURE:LEG WOUND REPAIR / CLOSURE TRACHEOSTOMY TUBE PLACEMENT 10/25/2019 - 11/22/2019 TRACHEOSTOMY CLOSURE 03/24/2020 - 04/23/2020 OTHER SURGICAL HISTORY Coccyx removal OTHER SURGICAL HISTORY Melanoma removal POLYPECTOMY 04/2025 Medical History Medical History Date Comments Neuromyelitis optica spectru m disorder ([facility] V24, [facility] V28) DX:Neuromyelitis optica spe ctrum disorder ([facility]) Arthritis DX:Arthritis TMJ (dislocation of temporom andibular joint) DX:TMJ (dislocation of tempo romandibular joint) Migraines DX:Migraines Melanoma ([facility] [place], [facility] V28) DX:Melanoma ([facility]) Tinnitus Osteoporosis GERD (gastroesophageal reflux disease) COPD (chronic obstructive pu lmonary disease) ([facility] [place], [facility] V28) Family History Medical History [...] - - Weight 70.3 kg (155 lb) 02/10/2025 2:59 PM EDT Height 172.7 cm (5' 8 ) 02/10/2025 2:59 PM EDT Body Mass Index 23.57 02/10/2025 2:59 PM EDT Plan of Treatment Upcoming Encounters Date Type Department Care Team (Late st Contact Info) Description 06/01/2025 2:30 PM EDT Clinical Support [facility] Wound Care Center [address] [place] [phone] 06/09/2025 10:00 AM EDT Appointment [facility] Infusion Center [address] [facility] 2nd [place] [phone] 08/18/2025 3:00 PM EST Office Visit [facility] [address] [facility] [address] [address] [place] [address] Charlie Grigsby MD [address] [place] [phone] Health Maintenance Due Date Last Done Comments Breast Cancer Screening 1960 DTaP,Tdap,and Td Vaccines (1 - Tdap) 1978 Hepatitis A Vaccines (1 of 2 - Risk 2-dose series) 1978 Cervical Cancer Screening: Pap Smear 1980 Hepatitis B Vaccines (1 of 3 - Risk 3-dose series) 2019 Cholesterol Screening (Lipid Panel) 09/02/2022 Colorectal Cancer Screening: Colonoscopy 09/02/2022 Hepatitis C Screening 09/02/2022 Medicare Annual Wellness Visit 09/02/2022 Osteoporosis Screening (Bone Density Screening) 09/02/2022 Social Influencers of Health Screening 09/02/2022 Depression Screening 09/24/2024 Influenza Vaccine (#1) 2025 , 09/05/2022, 08/25/2015, Additional history exists COVID-19 Vaccine (7 - Moderna risk season) 2025 12/02/2024, 07/03/2023, 09/05/2022, Additional history exists Falls Risk Assessment 05/18/2026 05/18/2025 Zoster Vaccines Completed 07/03/2023, 03/25/2023 RSV Immunization Adult Patients Completed 09/07/2023 Pneumococcal Vaccine: 50+ Years Completed 11/25/2024, 07/08/2009 HIB Vaccines Aged Out [...] needed related to ulceration/compromised skin integrity. 05/18/2025 Insurance MEDICARE [place]ICA[place] - [place] [facility] Care Teams Chemical Weigher Relationship Specialty Start Date End Date Parul Sexton MD [address] [place] [address] , [address] Physician Associ D/B/A: [facility] [place] PCP - General 04/06/22
--- OUTSIDE RECORDS SUMMARY | 2025-05-20 15:28 | XMS_ITS ---
Care Plan Created on: May 20, 2025 Vivi Ayala : 1960 Sex: Female Author Organization [facility] Address [address] [place] [phone] Phone Care Team Providers Care Alcohol Rubber Name Role Phone Parul Sexton MD Primary Care Provider Active Problems Problem Noted Date Diagnosed Date Pressure ulcer of right butt ock, stage 3 (CMS/HCC V24, CMS/[facility] V28) 09/01/2024 Neuromyelitis optica spectru m disorder (CMS/HCC V24, CMS/[facility] V28) Overview (09/01/2024): DX:Neuromyelitis optica spectrum disorder (HCC) Additional Health Concerns Active Problems Noted Date Diagnosed Date Impaired Tissue 09/01/2024 Education needed on impact of smoking on wound 1 11/02/2023 Education needed related to ulceration/compromised skin integrity. 09/01/2024 Impaired Tissue 05/18/2025 Education needed on impact of smoking on wound 0 05/18/2025 Education needed related to ulceration/compromised skin integrity. 05/18/2025 Goals Goal Patient Goal Type Associated Problems Recent Progress Patient-Stated? Author Wound volume breakdown reduced by X% by week 4 Care Plan Impaired Tissue No Marielos Malagon RN Wound volume breakdown reduced by X% by week 8 Care Plan Impaired Tissue No Marielos Malagon mechanical tech volume breakdown reduced by X% by week [...] ulceration/compr omised skin integrity. Marielos Brice RN Interventions Care Plan Interventions Intervention Entry Date Outcome Provide caregiver with wound care procedure information 05/18/2025 Educate caregiver on proper wound care procedures 05/18/2025 Give provider list of wound care supplies 05/18/2025 Refill wound care supplies 05/18/2025 Send Wound Care Supplies 05/18/2025 Give provider list of wound care supplies 05/18/2025 Refill wound care supplies 05/18/2025 Send Wound Care Supplies 05/18/2025 Provide caregiver with wound care procedure information 05/18/2025 Educate caregiver on proper wound care procedures 05/18/2025 Document patient eligibility for HBO 05/18/2025 Assess patient for HBO treatment 05/18/2025 Record wound depth 05/18/2025 Record total wound area 05/18/2025 Measure wound progress 05/18/2025 Create an action plan identifying patient strengths and supports 05/18/2025 Establish quit date with patient 05/18/2025 Discuss prior cessation attempts 05/18/2025 Discuss preferred method of cessation and plan 05/18/2025 Discuss barriers to smoking cessation 05/18/2025 Discuss smoking status with patient 05/18/2025 Create an action plan identifying patient strengths and supports 05/18/2025 Establish quit date with patient 05/18/2025 Discuss prior cessation attempts 05/18/2025 Discuss preferred method of cessation and plan 05/18/2025 Discuss barriers to smoking cessation 05/18/2025 Discuss smoking status with patient 05/18/2025 Provide caregiver with wound care procedure information 05/18/2025 Educate caregiver on proper wound care procedures 05/18/2025 Document patient eligibility for HBO 05/18/2025 Assess patient for HBO treatment 05/18/2025 Record wound depth 05/18/2025 Record total wound area 05/18/2025 Measure wound progress 05/18/2025 Provide caregiver with wound care procedure information 05/18/2025 Educate caregiver on proper wound care procedures 05/18/2025 Document patient eligibility for HBO 05/18/2025 Assess patient for HBO treatment 05/18/2025 Record wound depth 05/18/2025 Record total wound area 05/18/2025 Measure wound progress 05/18/2025 Provide caregiver with wound care procedure information 05/18/2025 Educate caregiver on proper wound care procedures 05/18/2025 Document patient eligibility for HBO 05/18/2025 Assess patient for HBO treatment 05/18/2025 Record wound depth 05/18/2025 Record total wound area 05/18/2025 Measure wound progress 05/18/2025 Provide caregiver with wound care procedure information 05/18/2025 Educate caregiver on proper wound care procedures 05/18/2025 Give provider list of wound care supplies 05/18/2025 Refill wound care supplies 05/18/2025 Give provider list of wound care supplies 05/18/2025 Refill wound care supplies 05/18/2025 Provide caregiver with wound care procedure information 05/18/2025 Educate caregiver on proper wound care procedures 05/18/2025 Record wound depth 05/18/2025 Record total wound area 05/18/2025 Measure wound progress 05/18/2025 Provide caregiver with wound care procedure information 09/01/2024 Educate caregiver on proper wound care procedures 09/01/2024 Give provider list of wound care supplies 09/01/2024 Refill wound care supplies 09/01/2024 Send Wound Care Supplies 09/01/2024 Give provider list of wound care supplies 09/01/2024 Refill wound care supplies 09/01/2024 Send Wound Care Supplies 09/01/2024 Provide caregiver with wound care procedure information 09/01/2024 Educate caregiver on proper wound care procedures 09/01/2024 Document patient eligibility for HBO 09/01/2024 Assess patient for HBO treatment 09/01/2024 Record wound depth 09/01/2024 Record total wound area 09/01/2024 Measure wound progress 09/01/2024 Create an action plan identifying patient strengths and supports 09/01/2024 Establish quit date with patient 09/01/2024 Discuss prior cessation attempts 09/01/2024 Discuss preferred method of cessation and plan 09/01/2024 Discuss barriers to smoking cessation 09/01/2024 Discuss smoking status with patient 09/01/2024 Create an action plan identifying patient strengths and supports 09/01/2024 Establish quit date with patient 09/01/2024 Discuss prior cessation attempts 09/01/2024 Discuss preferred method of cessation and plan 09/01/2024 Discuss barriers to smoking cessation 09/01/2024 Discuss smoking status with patient 09/01/2024 Provide caregiver with wound care procedure information 09/01/2024 Educate caregiver on proper wound care procedures 09/01/2024 Document patient eligibility for HBO 09/01/2024 Assess patient for HBO treatment 09/01/2024 Record wound depth 09/01/2024 Record total wound area 09/01/2024 Measure wound progress 09/01/2024 Provide caregiver with wound care procedure information 09/01/2024 Educate caregiver on proper wound care procedures 09/01/2024 Document patient eligibility for HBO 09/01/2024 Assess patient for HBO treatment 09/01/2024 Record wound depth 09/01/2024 Record total wound area 09/01/2024 Measure wound progress 09/01/2024 Provide caregiver with wound care procedure information 09/01/2024 Educate caregiver on proper wound care procedures 09/01/2024 Document patient eligibility for HBO 09/01/2024 Assess patient for HBO treatment 09/01/2024 Record wound depth 09/01/2024 Record total wound area 09/01/2024 Measure wound progress 09/01/2024 Related Goals and Interventions Goal Associated Intervent ions Wound volume breakdown reduc ed by X% by week 4 Provide caregiver with wound care proced ure information; Educate caregiver on proper wound care procedures; Document patient eligibility for HBO; Assess patient for HBO treatment; Record wound depth; Record total wound area; Measure wound progress Wound volume breakdown reduc ed by X% by week 8 Provide caregiver with wound care proced ure information; Educate caregiver on proper wound care procedures; Document patient eligibility for HBO; Assess patient for HBO treatment; Record wound depth; Record total wound area; Measure wound progress Wound volume breakdown reduc ed by X% by week 12 Provide caregiver with wound care proced ure information; Educate caregiver on proper wound care procedures; Document patient eligibility for HBO; Assess patient for HBO treatment; Record wound depth; Record total wound area; Measure wound progress Quit using tobacco (cigarett es, smokeless, etc) Create an action plan identifying patien t strengths and supports; Establish quit date with patient; Discuss prior cessation attempts; Discuss preferred method of cessation and plan; Discuss barriers to smoking cessation; Discuss smoking status with patient Reduce tobacco use (cigarett es, smokeless, etc) Create an action plan identifying patien t strengths and supports; Establish quit date with patient; Discuss prior cessation attempts; Discuss preferred method of cessation and plan; Discuss barriers to smoking cessation; Discuss smoking status with patient Decrease Wound Volume by X% by date (in notes) Give provider list of wound care supplie s; Refill wound care supplies; Send Wound Care Supplies; Provide caregiver with wound care procedure information; Educate caregiver on proper wound care procedures; Document patient eligibility for HBO; Assess patient for HBO treatment; Record wound depth; Record total wound area; Measure wound progress Patient and Caregiver Unders tand Wound Care Education Provide caregiver with wound care proced ure information; Educate caregiver on proper wound care procedures; Give provider list of wound care supplies; Refill wound care supplies; Send Wound Care Supplies Decrease Wound Volume by X% by date (in notes) Give provider list of wound care supplie s; Refill wound care supplies; Provide caregiver with wound care procedure information; Educate caregiver on proper wound care procedures; Record wound depth; Record total wound area; Measure wound progress Patient and Caregiver Unders tand Wound Care Education Provide caregiver with wound care proced ure information; Educate caregiver on proper wound care procedures; Give provider list of wound care supplies; Refill wound care supplies Wound volume breakdown reduc ed by X% by week 4 Provide caregiver with wound care proced ure information; Educate caregiver on proper wound care procedures; Document patient eligibility for HBO; Assess patient for HBO treatment; Record wound depth; Record total wound area; Measure wound progress Wound volume breakdown reduc ed by X% by week 8 Provide caregiver with wound care proced ure information; Educate caregiver on proper wound care procedures; Document patient eligibility for HBO; Assess patient for HBO treatment; Record wound depth; Record total wound area; Measure wound progress Wound volume breakdown reduc ed by X% by week 12 Provide caregiver with wound care proced ure information; Educate caregiver on proper wound care procedures; Document patient eligibility for HBO; Assess patient for HBO treatment; Record wound depth; Record total wound area; Measure wound progress Quit using tobacco (cigarett es, smokeless, etc) Create an action plan identifying patien t strengths and supports; Establish quit date with patient; Discuss prior cessation attempts; Discuss preferred method of cessation and plan; Discuss barriers to smoking cessation; Discuss smoking status with patient Reduce tobacco use (cigarett es, smokeless, etc) Create an action plan identifying patien t strengths and supports; Establish quit date with patient; Discuss prior cessation attempts; Discuss preferred method of cessation and plan; Discuss barriers to smoking cessation; Discuss smoking status with patient Decrease Wound Volume by X% by date (in notes) Give provider list of wound care supplie s; Refill wound care supplies; Send Wound Care Supplies; Provide caregiver with wound care procedure information; Educate caregiver on proper wound care procedures; Document patient eligibility for HBO; Assess patient for HBO treatment; Record wound depth; Record total wound area; Measure wound progress Patient and Caregiver Unders tand Wound Care Education Provide caregiver with wound care proced ure information; Educate caregiver on proper wound care procedures; Give provider list of wound care supplies; Refill wound care supplies; Send Wound Care Supplies
== END 2025-05-20 14:41 | disposition home or self-care (01) ==
LOC: HO.ENCR 14:24
PROVIDERS: PCP Internal Medicine; Visit Provider Student in an Organized Health Care Education/Training Program
DX: M81.0 Age-related osteoporosis without current pathological fracture (principal)

== ENCOUNTER → 2025-05-20 14:23 | Outpatient (BNVA) | payer MEDICARE, BC, MEDICAID, SELFPAY | PROVIDERS: PCP Internal Medicine; Visit Provider Student in an Organized Health Care Education/Training Program | DX: M81.0 Age-related osteoporosis without current pathological fracture (principal) | CPT/HCPCS: 96372; J3111 ==

== ENCOUNTER 2025-06-18 13:28 | Outpatient (AMB) | payer MEDICARE, BC, MEDICAID, SELFPAY ==
--- NOTE | 2025-06-18 13:48 | AM.OFFVISNUR ---
Intake Visit Reasons: Evenity #5 Allergies blackberry Allergy (Severe, Verified 05/07/25 14:58) Rash and Hives lanolin Allergy (Severe, Verified 05/07/25 14:58) Rash and Hives latex (LATEX) Allergy (Severe, Verified 05/07/25 14:58) RASH Sulfa (Sulfonamide Antibiotics) (SULFA (SULFONAMIDE ANTIBIOTICS)) Allergy (Severe, Verified 05/07/25 14:58) JUANDICE tree nut (TREE NUT) Allergy (Severe, Verified 05/07/25 14:58) ANAPHYLAXIS rasberries Allergy (Severe, Uncoded 05/07/25 14:58) Rash and Hives Tetanus Allergy (Severe, Uncoded 05/07/25 14:58) Rash and Hives Office Meds romosozumab-aqqg 210 mg/2.34 mL(105 mg/1.17 mL x2)subcutaneous syringe Performing Provider: Kalee Feng MD Performing Location: [facility] Endocrinology Administered by: Madiha Telles RN on 06/18/25 13:48 Dose Route Admin Location Dispensed Lot Number Expiration Date [facility] [employer] Fixture Builder 210 mg subcut bilateral upper arms 2.34 mL [id number] 07/24/27 56755-342-81 AMGEN Total Dispensed Waste 2.34 mL 0 % Comments: patient tolerated injection well. patient denies any adverse reactions with previous injections. scheduled for follow up in x4 weeks. Assessment & Plan Assessment & Plan Orders: Orders AMB Romosozumab Injection Patient Supplied Today M81.0 - Age-related osteoporosis without current pathological fracture Coding
--- OUTSIDE RECORDS SUMMARY | 2025-06-18 18:02 | XMS_ITS | Clinical Summary ---
Author Organization [facility] Address [address] [place] [address] Care Team Providers Care Pulp And Paper Tester Name Role Phone Parul Vieira MD Primary [...] PO) Take by mouth. 0 Acti ve Brave-3-6-9 CAPS Take by mouth. 0 Acti ve [...] age to complete this topic Care Teams Pulp And Paper Tester Relationship Specialty Start Date End Date Parul Vieira MD [address] [facility] , [address] [facility] Physician Associ D/B/A: [facility] [place] [address] PCP - General Internal Medicine 04/06/22
== END 2025-06-18 13:46 | disposition home or self-care (01) ==
LOC: HO.ENCR 13:28
PROVIDERS: PCP Internal Medicine; Visit Provider Student in an Organized Health Care Education/Training Program
DX: M81.0 Age-related osteoporosis without current pathological fracture (principal)

== ENCOUNTER → 2025-06-18 13:28 | Outpatient (BNVA) | payer MEDICARE, BC, MEDICAID, SELFPAY | PROVIDERS: PCP Internal Medicine; Visit Provider Student in an Organized Health Care Education/Training Program | DX: M81.0 Age-related osteoporosis without current pathological fracture (principal); Z79.620 Long term (current) use of immunosuppressive biologic | CPT/HCPCS: 96372; J3111 ==

== ENCOUNTER 2025-07-16 14:20 | Outpatient (AMB) | payer MEDICARE, BC, MEDICAID, SELFPAY ==
--- NOTE | 2025-07-16 14:46 | AM.OFFVISNUR ---
Intake Visit Reasons: Evenity #6 Allergies blackberry Allergy (Severe, Verified 05/07/25 14:58) Rash and Hives lanolin Allergy (Severe, Verified 05/07/25 14:58) Rash and Hives latex (LATEX) Allergy (Severe, Verified 05/07/25 14:58) RASH Sulfa (Sulfonamide Antibiotics) (SULFA (SULFONAMIDE ANTIBIOTICS)) Allergy (Severe, Verified 05/07/25 14:58) JUANDICE tree nut (TREE NUT) Allergy (Severe, Verified 05/07/25 14:58) ANAPHYLAXIS rasberries Allergy (Severe, Uncoded 05/07/25 14:58) Rash and Hives Tetanus Allergy (Severe, Uncoded 05/07/25 14:58) Rash and Hives Office Meds romosozumab-aqqg 210 mg/2.34 mL(105 mg/1.17 mL x2)subcutaneous syringe Performing Provider: Kalee Feng MD [place] [facility] [place] Administered by: Madiha Telles RN on 07/16/25 14:46 Dose Route Admin Location Dispensed Lot Number Expiration Date [facility] Glost Kiln Operator 210 mg subcut bilateral upper arms 2.34 mL [id number] 08/23/27 36007-433-62 AMGEN Total Dispensed Waste 2.34 mL 0 % Comments: Patient tolerated injection well. Patient denies adverse reaction to previous injection. Patient scheduled in x4 weeks. Assessment & Plan Assessment & Plan Orders: Orders AMB Romosozumab Injection Patient Supplied Today M81.0 - Age-related osteoporosis without current pathological fracture Coding
--- OUTSIDE RECORDS SUMMARY | 2025-07-16 18:12 | XMS_ITS | Encounter Summary ---
Author Organization [facility] Address [address] [place] [address] Care Team Providers Care Library Clerk Name Role Phone Parul Sexton MD Primary Care Provider [phone] Encounter Details Date Type Department Care Team (Late st Contact Info) Description 02/12/2025 Lab Requisition [facility] - Main Lab [address] [facility] [place] [address] Imer Bolden MD [address] [facility] [address] [place] [address] Urinary tract infection, site not specified Social History Tobacco Use Types Packs/Day Years Used Date Smoking Tobacco: Former Cigarettes Q uit: 05/10/1979 Smokeless Tobacco: Never Alcohol Use Standard Drinks/Week Comments No 0 (1 standard drink = 0.6 oz pur e alcohol) Comments Unknown Sex and Gender Information Value Date Recorded Sex Assigned at Female 06/09/2025 10:06 AM EDT Legal Sex Female 2:31 PM EST Gender Identity Female 06/09/2025 10:06 AM EDT Sexual Orientation Straight 06/09/2025 10 :06 AM EDT documented as of this encounter Plan of Treatment Upcoming Encounters Date Type Department Care Team (Late st Contact Info) Description 08/18/2025 3:00 PM EST Office Visit [facility] [address] [facility] [address] [place] [address] Charlie Grigsby MD [address] [place] [address] 12/08/2025 10:00 AM EDT Appointment [facility] [address] [phone] documented as of this encounter Goals Goal [...] Proteus mirabilis(A) MIGUEL 02/14/2025 9:50 AM EDT [facility] Comment: The organism value for [...] ORDERABLES Final Result [facility] [address] [place] [address], [place] [phone] documented in this encounter Visit Diagnoses Diagnosis Urinary tract infection, site not specified documented in this encounter Additional Health Concerns Active Problems Noted Date Diagnosed Date Impaired Tissue 09/01/2024 Education needed on impact of smoking on wound 1 11/02/2023 Education needed related to ulceration/compromised skin integrity. 09/01/2024 documented as of this encounter Care Teams Library Clerk Relationship Specialty Start Date End Date Parul Sexton MD [address] [facility] , [address] [place] [address] Physician Associ D/B/A: [facility] [place] PCP - General 04/06/22 documented as of this encounter
--- OUTSIDE RECORDS SUMMARY | 2025-07-16 18:12 | XMS_ITS | Clinical Summary ---
Author Organization [facility] Address [address] [place] [phone] Phone Care Team Providers Care Pizzamaker Name Role Phone Parul Sexton MD Primary Care Provider [phone] Allergies Active Allergy Reactions Criticality Noted Date [...] (one) time each day. Active fish,bora,flax oils-om3,6,9no1 ([place] 3-6-9) 1,200 mg capsule Take 1,200 mg [...] times a day. 360 each 2 5 Active romosozumab-aqq g (Evenity) Inject 2.34 mL (210 mg total) under the skin every 30 (thirty) days. Active Active Problems Problem Noted Date Diagnosed Date Pressure ulcer of right butt ock, stage 3 (CMS/HCC V24, CMS/HCC V28) 09/01/2024 Neuromyelitis optica spectru m disorder (CMS/HCC V24, CMS/HCC V28) Overview (09/01/2024): DX:Neuromyelitis optica spectrum disorder (HCC) Encounters Date Type Department Care Team Description 06/29/2025 2:30 PM EDT Office Visit [facility] [address] [place] [phone] Johnny Doty PA Pressure ulcer of right buttock, stage 3 (CMS/HCC V24, CMS/HCC V28) (Primary Dx) 06/09/2025 10:00 AM EDT - 06/09/2025 11:59 PM EDT Hospital Encounter [facility] [address] [place] [phone] Neuromyelitis optica spectrum disorder ([facility]/HCC V24, [facility]/HCC V28) (Primary Dx); Encounter for therapeutic drug monitoring; Vitamin D deficiency Discharge Disposition: Home or Self Care 06/01/2025 2:30 PM EDT Office Visit [facility] [address] [place] [phone] Gladys Tomas MD Stage II pressure ulcer of right buttock ([facility] V24, [facility]/HCC V28) (Primary Dx) 05/18/2025 2:00 PM EDT Office Visit [facility] [address] [place] [phone] Gladys Tomas MD Stage II pressure ulcer of right buttock ([facility]/HCC V24, CMS/HCC V28) (Primary Dx) from Last 3 Months Surgical History Surgery Date Site/Laterality Comments OTHER SURGICAL HISTORY PROCEDURE:LEG WOUND REPAIR / CLOSURE TRACHEOSTOMY TUBE PLACEMENT 10/25/2019 - 11/22/2019 TRACHEOSTOMY CLOSURE 03/24/2020 - 04/23/2020 OTHER SURGICAL HISTORY Coccyx removal OTHER SURGICAL HISTORY Melanoma removal POLYPECTOMY 04/2025 Medical History Medical History Date Comments Neuromyelitis optica spectru m disorder ([facility] [place]24, [facility] V28) DX:Neuromyelitis optica spe ctrum disorder ([facility]) Arthritis DX:Arthritis TMJ (dislocation of temporom andibular joint) DX:TMJ (dislocation of tempo romandibular joint) Migraines DX:Migraines Melanoma ([facility] [place]24, [facility] V28) DX:Melanoma ([facility]) Tinnitus Osteoporosis GERD (gastroesophageal reflux disease) COPD (chronic obstructive pu lmonary disease) ([facility] V24, [facility] V28) Family History Medical History Relation Name [...] Orientation Straight 06/09/2025 10 :06 AM EDT Obstetrics History Last Filed Vital Signs Vital Sign Reading Time Taken Comments Blood Pressure 92/49 06/29/2025 2:34 PM EDT Pulse 87 06/29/2025 2:34 PM EDT Temperature 36.2 C (97.1 F) 06/29/2025 2:34 PM EDT Respiratory Rate 16 06/29/2025 2:34 PM EDT Oxygen Saturation 98% 06/29/2025 2:34 PM EDT Inhaled Oxygen Concentration - - Weight 70.3 kg (155 lb) 02/10/2025 2:59 PM EDT Height 172.7 cm (5' 8 ) 02/10/2025 2:59 PM EDT Body Mass Index 23.57 02/10/2025 2:59 PM EDT Plan of Treatment Upcoming Encounters Date Type Department Care Team (Late st Contact Info) Description 08/18/2025 3:00 PM EST Office Visit [facility] [address] [place] [phone] Charlie Grigsby MD [address] [place], [place] [phone] 12/08/2025 10:00 AM EDT Appointment [facility] [address] [facility] 2[address] [place] [phone] Health Maintenance Due Date Last Done Comments Breast Cancer Screening 1960 Colorectal Cancer Screening: Colonoscopy 1960 DTaP,Tdap,and Td Vaccines (1 - Tdap) 1978 Hepatitis A Vaccines (1 of 2 - Risk 2-dose series) 1978 Cervical Cancer Screening: Pap Smear 1980 Hepatitis B Vaccines (1 of 3 - Risk 3-dose series) 2019 Cholesterol Screening (Lipid Panel) 09/02/2022 Hepatitis C Screening 09/02/2022 Medicare Annual [...] ulceration/compr omised skin integrity. Marielos Brice RN Wound volume breakdown reduced [...] integrity. 05/18/2025 Insurance MEDICARE [place]ICA[place] - [place] [facility] Care Teams Pizzamaker Relationship Specialty Start Date End Date Parul Sexton MD [address] [place] [address] , [address] [facility] Physician Associ D/B/A: [facility] ARIADNE Coreas PCP - General 04/06/22
--- OUTSIDE RECORDS SUMMARY | 2025-07-16 18:12 | XMS_ITS | Clinical Summary ---
Author Organization [facility] Address [address] [place] [address] Care Team Providers Care Supervisor Sample Name Role Phone Parul Vieira MD Primary [...] PO) Take by mouth. 0 Acti ve Purmela-3-6-9 CAPS Take by mouth. 0 Acti ve [...] age to complete this topic Care Teams Supervisor Sample Relationship Specialty Start Date End Date Parul Vieira MD 2 [facility] , [address] [facility] Physician Associ D/B/A: [facility] [place] [address] PCP - General Internal Medicine 04/06/22
== END 2025-07-16 14:47 | disposition home or self-care (01) ==
LOC: HO.ENCR 14:21
PROVIDERS: PCP Internal Medicine; Visit Provider Student in an Organized Health Care Education/Training Program
DX: M81.0 Age-related osteoporosis without current pathological fracture (principal)

== ENCOUNTER → 2025-07-16 14:20 | Outpatient (BNVA) | payer MEDICARE, BC, MEDICAID, SELFPAY | PROVIDERS: PCP Internal Medicine; Visit Provider Student in an Organized Health Care Education/Training Program | DX: M81.0 Age-related osteoporosis without current pathological fracture (principal) | CPT/HCPCS: 96372; J3111 ==

== ENCOUNTER 2025-07-24 14:20 | Outpatient (REF) | payer MEDICARE, BC, MEDICAID, SELFPAY ==
[2025-07-24 14:48] LABS: MANUAL DIFF FLAG NO
--- OUTSIDE RECORDS SUMMARY | 2025-07-24 14:59 | XMS_ITS | Encounter Summary ---
Author Organization [facility] Address [address] [place] [address] Care Team Providers Care Complaint Specialist Name Role Phone Parul Sexton MD Primary Care Provider [phone] Encounter Details Date Type Department Care Team (Late st Contact Info) Description 02/12/2025 Lab Requisition [facility] - Main Lab [address] [facility] [place] [address] Imer Bolden MD [address] [facility] [address] [place] [address] Urinary tract infection, site not specified Social [...] Description 08/18/2025 3:00 PM EST Office Visit [facility] [address] [facility] [address] [place] [address] Charlie Grigsby MD 175 [place] [address] 12/08/2025 10:00 AM EDT Appointment [facility] [address] [phone] documented as of this encounter Goals Goal [...] Proteus mirabilis(A) MIGUEL 02/14/2025 9:50 AM EDT [facility] Comment: The organism value for this result has been updated. These results have been appended to the previously preliminary verified report. Edited result: Previously reported as Proteus species on 02/13/2025 at 1046 EDT. Culture, Bacterial ID and Sensitivity Pseudomonas aeruginosa(A) MIGUEL 02/14/2025 9:50 AM EDT [facility] Comment: The organism value for this [...] MICROBIOLOGY - G ENERAL ORDERABLES Final Result [facility] [address] [place] [address], [place] [phone] documented in this encounter Visit Diagnoses Diagnosis Urinary tract infection, site not specified documented in this encounter Additional Health Concerns Active Problems Noted Date Diagnosed Date Impaired Tissue 09/01/2024 Education needed on impact of smoking on wound 1 11/02/2023 Education needed related to ulceration/compromised skin integrity. 09/01/2024 documented as of this encounter Care Teams Complaint Specialist Relationship Specialty Start Date End Date Parul Sexton MD 2 [facility] , [address] [place] [address] Physician Associ D/B/A: [facility] [place] [place] PCP - General 04/06/22 documented as of this encounter
--- OUTSIDE RECORDS SUMMARY | 2025-07-24 14:59 | XMS_ITS | Clinical Summary ---
Author Organization [facility] Address [address] [place] [address] Care Team Providers Care Braided Rug Maker Name Role Phone Parul Vieira MD Primary [...] PO) Take by mouth. 0 Acti ve [place]-3-6-9 CAPS Take by mouth. 0 Acti ve [...] age to complete this topic Care Teams Braided Rug Maker Relationship Specialty Start Date End Date Parul Vieira MD 2 [facility] , [address] [facility] Physician Associ D/B/A: [facility] [place] [address] PCP - General Internal Medicine 04/06/22
--- OUTSIDE RECORDS SUMMARY | 2025-07-24 14:59 | XMS_ITS | Clinical Summary ---
Author Organization [facility] Address [address] [place] [phone] Phone Care Team Providers Care Manager Assembly Name Role Phone Parul Sexton MD Primary Care Provider [phone] Allergies Active Allergy Reactions Criticality Noted Date [...] (one) time each day. Active fish,bora,flax oils-om3,6,9no1 ([place] 3-6-9) 1,200 mg capsule Take 1,200 mg [...] Description 06/29/2025 2:30 PM EDT Office Visit [facility] [address] [place] [phone] Johnny Doty PA Pressure ulcer of right buttock, stage 3 (CMS/HCC V24, CMS/HCC V28) (Primary Dx) 06/09/2025 10:00 AM EDT - 06/09/2025 11:59 PM EDT Hospital Encounter [facility] [address] [place] [phone] Neuromyelitis optica spectrum disorder ([facility]/HCC V24, [facility]/HCC V28) (Primary Dx); Encounter for therapeutic drug monitoring; Vitamin D deficiency Discharge Disposition: Home or Self Care 06/01/2025 2:30 PM EDT Office Visit [facility] [address] [place] [phone] Gladys Tomas MD Stage II pressure ulcer of right buttock ([facility] V24, [facility]/HCC V28) (Primary Dx) 05/18/2025 2:00 PM EDT Office Visit [facility] [address] [place] [phone] Gladys Tomas MD Stage II pressure ulcer of right buttock ([facility]/HCC V24, CMS/HCC V28) (Primary Dx) from Last 3 Months Surgical History Surgery Date Site/Laterality Comments OTHER SURGICAL HISTORY PROCEDURE:LEG WOUND REPAIR / CLOSURE TRACHEOSTOMY TUBE PLACEMENT 10/25/2019 - 11/22/2019 TRACHEOSTOMY CLOSURE 03/24/2020 - 04/23/2020 OTHER SURGICAL HISTORY Coccyx removal OTHER SURGICAL HISTORY Melanoma removal POLYPECTOMY 04/2025 Medical History Medical History Date Comments Neuromyelitis optica spectru m disorder ([facility] V24, [facility] V28) DX:Neuromyelitis optica spe ctrum disorder ([facility]) Arthritis DX:Arthritis TMJ (dislocation of temporom andibular joint) DX:TMJ (dislocation of tempo romandibular joint) Migraines DX:Migraines Melanoma ([facility] V24, [facility] V28) DX:Melanoma ([facility]) Tinnitus Osteoporosis GERD (gastroesophageal reflux disease) COPD (chronic obstructive pu lmonary disease) ([facility] V24, [facility] V28) Family History Medical History Relation Name [...] Description 08/18/2025 3:00 PM EST Office Visit [facility] [address] [place] [phone] Charlie Grigsby MD [address] [place], [place] [phone] 12/08/2025 10:00 AM EDT Appointment [facility] [address] [facility] 2nd [place] [phone] Health Maintenance Due Date Last Done Comments [...] integrity. 05/18/2025 Insurance MEDICARE [place] - [place] [facility] Care Teams Manager Assembly Relationship Specialty Start Date End Date Parul Sexton MD [address] [place] [address] , [address] [facility] Physician Associ D/B/A: [facility] ARIADNE Coreas PCP - General 04/06/22
[2025-07-24 15:37] LABS: Hematocrit 44.1 % (37.0-47.0); Hemoglobin 13.8 g/dl (12.0-16.0); Imm Gran Abs Auto 0.01 X10*3/uL (0.00-0.03); Imm Gran Pct Auto 0.2 % (0.0-0.4); Lymphocytes Absolute Auto 1.3 X10*3/uL (1.2-4.9); Mean Corpuscular HGB Conc 31.3 g/dl (31.0-35.0); Mean Corpuscular Hemoglobin 29.2 pg (27.0-33.0); Mean Corpuscular Volume 93.4 fL (80.0-98.0); NRBC Abs Auto 0.000 X10*3/uL (0.0-0.012); NRBC Pct Auto 0.0 /100WBC (0.0-0.2); Platelet Count 189 X10*3/uL (160-400); Red Blood Count 4.72 X10*6/uL (4.20-5.50); White Blood Count 4.1 X10*3/uL (4.8-10.8)
[2025-07-24 15:50] LABS: Alanine Aminotransferase 17 U/L (0-31); Albumin Level 3.6 g/dL (3.5-5.0); Alkaline Phosphatase 135 U/L (39-117); Anion Gap 11 (12-20); Aspartate Amino Transferase 21 U/L (5-31); Blood Urea Nitrogen 13 mg/dL (9-16); Calcium 8.7 mg/dL (8.4-10.2); Carbon Dioxide 25 mmol/L (22-29); Chloride 107 mmol/L (96-108); Cholesterol 213 mg/dL (<200); Estimated Glomerular Filt Rate > 60; HDL Cholesterol 41 mg/dL (>40); Iron 74 mcg/dL (30-160); Magnesium 2.3 mg/dL (1.6-2.6); Percent Iron Saturation 31 % (15-50); Potassium 4.1 mmol/L (3.3-5.1); Sodium 139 mmol/L (135-145); Total Iron Binding Capacity 239 mcg/dL (228-428); Total Protein 6.7 g/dL (6.5-8.0); Triglycerides 113 mg/dL (<150); Unsaturated Iron Binding 165 ug/dL
[2025-07-24 16:14] LABS: Folate 14.1 ng/mL (> or = 4.0); Vitamin B12 1825 pg/mL (200-900)
== END 2025-07-24 14:21 | disposition home or self-care (01) ==
LOC: HO.LAB 14:20
PROVIDERS: PCP Internal Medicine; Visit Provider Internal Medicine
DX: E53.8 Deficiency of other specified B group vitamins (principal); M81.0 Age-related osteoporosis without current pathological fracture; D64.9 Anemia, unspecified; E61.2 Magnesium deficiency; E51.9 Thiamine deficiency, unspecified; E78.5 Hyperlipidemia, unspecified; E55.9 Vitamin D deficiency, unspecified
CPT/HCPCS: 36415; 80053; 80061; 82306; 82607; 82746; 83540; 83735; 84100; 84425; 85025

== ENCOUNTER 2025-07-27 14:53 | Outpatient (AMB) | payer MEDICARE, BC, MEDICAID, SELFPAY ==
--- NOTE | 2025-07-27 15:04 | A.OFFPC_ITS ---
Vital Signs 07/27/25 15:27 Height 5 ft 8 in BMI Reason not done Patient refused/unable BP 100/62 Blood Pressure Location Rt brachial Position Sitting Pulse 82 Pulse Source Pulse Oximeter Temp 97.3 F Temp Source Temporal Artery Scan Pulse Oximetry (%) 98 Oxygen Delivery Method Room Air Intake Visit Reasons: annual exam Intake Note: Patient is here today for a physical. Gas Utility Worker Required: No Assistant Corporate Controller: Not Required per policy Accompanied by: Self / Same As Patient Allergies blackberry Allergy (Severe, Verified 07/27/25 15:47) Rash and Hives lanolin Allergy (Severe, Verified 07/27/25 15:47) Rash and Hives latex (LATEX) Allergy (Severe, Verified 07/27/25 15:47) RASH Sulfa (Sulfonamide Antibiotics) (SULFA (SULFONAMIDE ANTIBIOTICS)) Allergy (Severe, Verified 07/27/25 15:47) JUANDICE tree nut (TREE NUT) Allergy (Severe, Verified 07/27/25 15:47) ANAPHYLAXIS rasberries Allergy (Severe, Uncoded 07/27/25 15:47) Rash and Hives Tetanus Allergy (Severe, Uncoded 07/27/25 15:47) Rash and Hives Medication List - Last Reconciled 07/27/25 by Parul Sexton MD albuterol sulfate 1.25 mg (3 mL) inhalation QID albuterol sulfate 90 mcg/actuation 2 puffs inhalation Q6H PRN ascorbate calcium (vitamin C) 500 mg PO DAILY baclofen 10 mg PO TID baclofen 20 mg PO BEDTIME cholecalciferol (vitamin D3) 50 mcg PO DAILY dkoilpxau-Hb-hknva-mushroomcmb [phone] bz-xte-xd-mg tabs PO cyanocobalamin (vitamin B-12) 1,000 mcg PO DAILY diaper,brief,adult,disposable Size large disposable gloves As directed epinephrine IM DIRECTED Evenity (romosozumab-aqqg) KYUNG 0 210 mg subcutaneously; every month for 12 months NS gel dressing (Skintegrity Hydrogel topical) As directed applied to wound daily magnesium gluconate 30 mg PO DAILY methenamine hippurate 1 g PO BID midodrine 5 mg PO TID 30 days multivitamin 1 tab PO DAILY nebulizers As directed omega-3 fatty acids 500 mg PO DAILY peg 400-propylene glycol 0.4-0.3 % (Systane Gel) 1 drp ophthalmic (eye) BEDTIME 30 days quetiapine (Seroquel) 25 mg PO TID 90 days rituximab (Rituxan) IV [robu cushion As directed] sertraline 50 mg PO DAILY underpads As directed [wheelchair motorized with Roku cushion As directed] zinc gluconate 15 mg PO DAILY Tobacco use date assessed: 07/27/25 Fall risk assessment: No Falls in past year Last assessed Fall Risk: 07/27/25 Dental Screening Dental Screen Date: 12/30/24 HPI HPI Comments History of Present Illness Details The patient is a 64-year-old female presenting for her annual physical exam. The patient's immunizations are mostly up to date, having received the PCV20, RSV, and Zoster vaccines. She has a history of a flu-like reaction to a tetanus vaccine in 1971 and has not received it since, and it is listed as an allergy. She is due for a COVID-19 booster. Her chronic conditions include osteoporosis diagnosed in 2023 with a T-score of -5.1, for which she receives monthly Evenity injections. She has Sjogren's syndrome, experiencing dry eyes, nose, and mouth, and uses cysteine gel for her eyes. She also has hypotension, which she manages with midodrine as needed, and takes sertraline for depression with anxiety. Recent blood work from June showed a slightly low white blood cell count of 4.1, but other cell counts were normal. Her total cholesterol was mildly elevated at 213, but HDL was normal at 41. Her vitamin B12 level was slightly elevated, and her dose was previously reduced from daily to three times a week. Other metabolic panels, including kidney function, glucose, and liver enzymes, were normal. New symptoms include right arm pain, which she attributes to phone use and weightlifting, and right eye pain described as feeling behind the eye without blurry vision or redness. She also reports bothersome tinnitus, especially in the left ear, that affects her sleep and concentration. Past surgical history includes a tracheostomy with subsequent closure, PEG tube insertion and removal, and lipoma removal. Her last mammogram in November of this year was normal, and her last colonoscopy was approximately five years ago. She has a pressure ulcer on her right thigh, which was recently evaluated at a wound clinic and deemed to be fine. The patient is a former smoker who quit around age 19 and does not drink alcohol. Her father at 72 with bone cancer and diabetes, and her mother at 90 after having a stroke and diabetes. 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 Thigh shingles Vegetarian diet COVID-19 Diarrhea Edema of right foot Asthma-COPD overlap syndrome Breast pain, left Decubitus ulcer, stage 4 Mild depression Wheelchair bound Hypovitaminosis D B12 deficiency Muscle spasm Idiopathic hypotension Neuromyelitis Surgical History Tracheostomy status Status post insertion of percutaneous endoscopic gastrostomy (PEG) tube History of lipoma Family History (Updated 07/27/25 @ 15:57 by Parul Sexton MD) Father Diabetes Bone cancer Mother Diabetes Stroke Social History Housing: House Alcohol intake: never Patient Tobacco Use Status: Former Tobacco user Tobacco use type: Cigarette Years Smoked: 2 years e-Cigarette/Vaping Use: Never Used Second Hand Smoke Exposure: Yes service: No Current occupational status: disabled Cognitive needs: Yes (Power wheelchair) Hearing needs: No Vision needs: Yes (Glasses) Questionnaire PHQ-9 Over the last 2 weeks, how often have you been bothered by any of the following problems? 1. Little interest or pleasure in doing things: not at all 2. Feeling down, depressed, or hopeless: not at all 3. Trouble falling or staying asleep, or sleeping too much: not at all 4. Feeling tired or having little energy: not at all 5. Poor appetite or overeating: not at all 6. Feeling bad about yourself - or that you are a failure or have let yourself or your family down: not at all 7. Trouble concentrating on things, such as reading the newspaper or watching television: not at all 8. Moving or speaking so slowly that other people could have noticed. Or the opposite - being so fidgety or restless that you have been moving around a lot more than usual: not at all 9. Thoughts that you would be better off or of hurting yourself in some way: not at all Total score: 0 Depression Screening Interpretation: Negative Depression Screening Done: Yes 51915 - PHQ-9 Billing: Yes Source: Developed by Drs. Alek Gleason, Parul Snyder, Nick Godoy and colleagues, with an educational ankit from [employer]. Thrive Questionnaire Date Thrive assessed: 12/30/24 I am a: Parent/Caregiver What is your living situation today?: I have a steady place to live Within the past 12 months, did the food you bought not last and you didn't have the money to get more?: Never true Within the past 12 months, did you worry whether your food would run out before you got money to buy more?: Never true Do you have trouble paying for medicines?: No Do you have trouble getting transportation to medical appointments?: No Do you have trouble paying your heating and electricity bill?: No Do you have trouble taking care of your child, family member or friend?: No Do you have trouble with day-to-day activities such as bathing, preparing meals, shopping, managing finances, etc.?: No Are you currently unemployed and looking for a job?: No Are you interested in more education?: No Please select the resources that you would like help with: None Currently or been in a relationship where the following occur: No concerns repo rted THRIVE Score: 0 AUDIT C Alcohol Use Questionnaire (AUDIT-C) 1. How often do you have a drink containing alcohol?: Never Total Score: 0 Score Reviewed/Action Taken: No DARINEL-7 AMB Questionnaire DARINEL-7 Date DARINEL - 7 assessed: 12/30/24 Feeling nervous, anxious, or on edge: 0 = Not at all Not being able to stop or control worryin = Not at all Worrying too much about different things: 0 = Not at all Trouble relaxin = Not at all Being so restless that it is hard to sit still: 0 = Not at all Becoming easily annoyed or irritable: 0 = Not at all Feeling afraid as if something awful might happen: 0 = Not at all Total DARINEL-7 score (0-4 normal; 5-9 mild; 10-14 moderate; 15-21 severe): 0 Source: Developed by Drs. Alek Gleason, Parul Snyder, Nick Godoy and colleagues, with an educational ankit from [employer]. DARINEL-7 Assessment Billing DARINEL-7 Assessment Tool: DARINEL-7 Assessment 16462 Review of Systems Const All systems reviewed & are unremarkable except as noted in HPI and below Card Denies chest pain at rest, Denies chest pain with activity, Denies edema, Denies irregular heart rhythm, Denies claudication, Denies dyspnea, Denies dyspnea on exertion, Denies orthopnea, Denies paroxysmal nocturnal dyspnea and Denies slow heart rate Resp Denies cough, Denies dyspnea and Denies dyspnea on exertion Physical exam (Primary Care) Vital Signs: Last Vital Signs Temp 97.3 F 07/27/25 15:27 Pulse 82 07/27/25 15:27 BP 100/62 07/27/25 15:27 Pulse Ox 98 07/27/25 15:27 Oxygen Delivery Method Room Air 07/27/25 15:27 Tobacco/Smoking Status: Tobacco use Status Tobacco use date assessed 07/27/25 07/27/25 15:34 Patient Tobacco Use Status Former Tobacco user 07/27/25 15:04 Tobacco use type Cigarette 07/27/25 15:04 e-Cigarette/Vaping Use Never Used 07/27/25 15:04 PHQ-9: PHQ-9 Score PHQ-9: Total score 0 07/27/25 15:34 Depression Screening Interpretation: Negative Thrive Assessment: Date of Thrive Assessment Date Thrive assessed 12/30/24 07/27/25 15:04 Currently or been in a relationship where the following occur: No concerns reported Const Limitations: wheelchair HENMT Head: Yes normal to inspection, Yes normocephalic and Yes atraumatic Ears: external ears normal Eyes General: appearance normal, both eyes and all related structures Eyelids: Yes eyelids normal Conjunctivae: conjunctivae normal Neck Neck: Yes normal visual inspection and Yes supple Resp Effort & Inspection: normal respiratory effort Auscultation: clear to auscultation bilaterally Cardio Jugular venous distension: no JVD Rate: regular rate Rhythm: regular rhythm Heart sounds: S1 normal heart sound present and S2 normal heart sound present GI Inspection: Yes normal to inspection Palpation (GI): Soft to palpation and nontender Auscultation: normal bowel sounds Skin General skin exam: no rashes or lesions noted Neuro General: no focal motor deficits Psych Appearance: grossly normal Coding Level of Care Code Est Pt Prev Care >65y(50815) Diagnoses Physical exam Z00.00 Additional Codes PHQ-9 - 06767 - PHQ-9 Billing: Yes ([id number]) DARINEL-7 Assessment Billing - DARINEL-7 Assessment Tool: DARINEL-7 Assessment 33470 ([id number]) Time Spent (min) 30 Assessment & Plan Assessment & Plan (1) Physical exam: Code(s): Z00.00 - Encounter for general adult medical examination without abnormal findings Category: Medical Plan Plan 1. Encounter for general adult medical examination without abnormal findings Z00.00 Repeat in a year. Orders: Orders Complete Blood Count Auto Diff 6 Months D64.9 - Anemia, unspecified Vitamin D 25-OH Total 6 Months E55.9 - Vitamin D deficiency, unspecified Vitamin B12 and Folate 6 Months E53.8 - Deficiency of other specified B group vitamins
[2025-07-27 15:27] VITALS: BP 100/62; PULSE 82; TEMP 36.3; O2SAT 98
--- OUTSIDE RECORDS SUMMARY | 2025-07-27 16:21 | XMS_ITS | Clinical Summary ---
Author Organization [facility] Address [address] [place] [address] Care Team Providers Care Loom Setter Fourdrinier Name Role Phone Parul Vieira MD Primary [...] PO) Take by mouth. 0 Acti ve [place]-3-6-9 CAPS Take by mouth. 0 Acti ve [...] age to complete this topic Care Teams Loom Setter Fourdrinier Relationship Specialty Start Date End Date Parul Vieira MD 2 [facility] , [address] [facility] Physician Associ D/B/A: [facility] [place] [address] PCP - General Internal Medicine 04/06/22
--- OUTSIDE RECORDS SUMMARY | 2025-07-27 16:21 | XMS_ITS | Clinical Summary ---
Author Organization [facility] Address [address] [place] [phone] Phone Care Team Providers Care Fruit Or Nut Farmer Name Role Phone Parul Sexton MD Primary Care Provider [phone] Allergies Active Allergy Reactions Criticality Noted Date [...] (one) time each day. Active fish,bora,flax oils-om3,6,9no1 ([place] 3-6-9) 1,200 mg capsule Take 1,200 mg [...] Description 06/29/2025 2:30 PM EDT Office Visit [facility] [address] [place] [phone] Johnny Doty PA Pressure ulcer of right buttock, stage 3 (CMS/HCC V24, CMS/HCC V28) (Primary Dx) 06/09/2025 10:00 AM EDT - 06/09/2025 11:59 PM EDT Hospital Encounter [facility] [address] [place] [phone] Neuromyelitis optica spectrum disorder ([facility]/HCC V24, [facility]/HCC V28) (Primary Dx); Encounter for therapeutic drug monitoring; Vitamin D deficiency Discharge Disposition: Home or Self Care 06/01/2025 2:30 PM EDT Office Visit [facility] [address] [place] [phone] Gladys Tomas MD Stage II pressure ulcer of right buttock ([facility] V24, [facility]/HCC V28) (Primary Dx) 05/18/2025 2:00 PM EDT Office Visit [facility] [address] [place] [phone] Gladys Tomas MD Stage II pressure ulcer of right buttock ([facility]/HCC V24, CMS/HCC V28) (Primary Dx) from Last 3 Months Surgical History Surgery Date Site/Laterality Comments OTHER SURGICAL HISTORY PROCEDURE:LEG WOUND REPAIR / CLOSURE TRACHEOSTOMY TUBE PLACEMENT 10/25/2019 - 11/22/2019 TRACHEOSTOMY CLOSURE 03/24/2020 - 04/23/2020 OTHER SURGICAL HISTORY Coccyx removal OTHER SURGICAL HISTORY Melanoma removal POLYPECTOMY 04/2025 Medical History Medical History Date Comments Neuromyelitis optica spectru m disorder ([facility] V24, [facility] V28) DX:Neuromyelitis optica spe ctrum disorder ([facility]) Arthritis DX:Arthritis TMJ (dislocation of temporom andibular joint) DX:TMJ (dislocation of tempo romandibular joint) Migraines DX:Migraines Melanoma ([facility] V24, [facility] V28) DX:Melanoma ([facility]) Tinnitus Osteoporosis GERD (gastroesophageal reflux disease) COPD (chronic obstructive pu lmonary disease) ([facility] V24, [facility] V28) Family History Medical History Relation Name [...] Description 08/18/2025 3:00 PM EST Office Visit [facility] [address] [place] [phone] Charlie Grigsby MD [address] [place], [place] [phone] 12/08/2025 10:00 AM EDT Appointment [facility] [address] [facility] 2nd [place] [phone] Health Maintenance Due Date Last Done Comments [...] integrity. 05/18/2025 Insurance [place]IC[place] - [place] [facility] Care Teams Fruit Or Nut Farmer Relationship Specialty Start Date End Date Parul Sexton MD [address] [place] [address] , [address] [facility] Physician Associ D/B/A: [facility] ARIADNE Coreas PCP - General 04/06/22
--- OUTSIDE RECORDS SUMMARY | 2025-07-27 16:22 | XMS_ITS | Encounter Summary ---
Author Organization [facility] Address [address] [place] [address] Care Team Providers Care Correspondence School Teacher Name Role Phone Parul Sexton MD Primary Care Provider [phone] Encounter Details Date Type Department Care Team (Late st Contact Info) Description 02/12/[address] [facility] - Main Lab 299 [facility] [place] [address] Imer Bolden MD 3640 [facility] 103 [place] [address] Urinary tract infection, site not specified Social [...] Description 08/18/2025 3:00 PM EST Office Visit [facility] 175 [facility] [address] [place] [address] Charlie Grigsby MD 175 [place] [address] 12/08/2025 10:00 AM EDT Appointment [facility] [address] [phone] documented as of this encounter Goals Goal [...] Proteus mirabilis(A) MIGUEL 02/14/2025 9:50 AM EDT [facility] ([facility] Comment: The organism value for this result has been updated. These results have been appended to the previously preliminary verified report. Edited result: Previously reported as Proteus species on 02/13/2025 at 1046 EDT. Culture, Bacterial ID and Sensitivity Pseudomonas aeruginosa(A) MIGUEL 02/14/2025 9:50 AM EDT [facility] Comment: The organism value for [...] MICROBIOLOGY - G ENERAL ORDERABLES Final Result [facility] [address] [place] [address], [place] [phone] documented in this encounter Visit Diagnoses Diagnosis Urinary tract infection, site not specified documented in this encounter Additional Health Concerns Active Problems Noted Date Diagnosed Date Impaired Tissue 09/01/2024 Education needed on impact of smoking on wound 1 11/02/2023 Education needed related to ulceration/compromised skin integrity. 09/01/2024 documented as of this encounter Care Teams Correspondence School Teacher Relationship Specialty Start Date End Date Parul Sexton MD 2 [facility] , [address] [place] [address] Physician Associ D/B/A: [facility] [place] PCP - General 04/06/22 documented as of this encounter
== END 2025-07-27 16:18 | disposition home or self-care (01) ==
LOC: HO.HMCH 14:54
PROVIDERS: PCP Internal Medicine; Visit Provider Internal Medicine
DX: Z00.00 Encounter for general adult medical examination without abnormal findings (principal)

== ENCOUNTER → 2025-07-27 14:53 | Outpatient (BNVA) | payer MEDICARE, BC, MEDICAID, SELFPAY | PROVIDERS: PCP Internal Medicine; Visit Provider Internal Medicine | DX: Z00.00 Encounter for general adult medical examination without abnormal findings (principal); Z13.31 Encounter for screening for depression; E55.9 Vitamin D deficiency, unspecified; E53.8 Deficiency of other specified B group vitamins; D64.9 Anemia, unspecified; M35.01 Sjogren syndrome with keratoconjunctivitis; I95.9 Hypotension, unspecified; M79.601 Pain in right arm; H93.12 Tinnitus, left ear; Z87.891 Personal history of nicotine dependence | CPT/HCPCS: 96127; 99397 ==

== ENCOUNTER 2025-08-13 14:16 | Outpatient (AMB) | payer MEDICARE, BC, MEDICAID, SELFPAY ==
--- NOTE | 2025-08-13 14:41 | AM.OFFVISNUR ---
Intake Visit Reasons: Evenity #7 Allergies blackberry Allergy (Severe, Verified 07/27/25 15:47) Rash and Hives lanolin Allergy (Severe, Verified 07/27/25 15:47) Rash and Hives latex (LATEX) Allergy (Severe, Verified 07/27/25 15:47) RASH Sulfa (Sulfonamide Antibiotics) (SULFA (SULFONAMIDE ANTIBIOTICS)) Allergy (Severe, Verified 07/27/25 15:47) JUANDICE tree nut (TREE NUT) Allergy (Severe, Verified 07/27/25 15:47) ANAPHYLAXIS rasberries Allergy (Severe, Uncoded 07/27/25 15:47) Rash and Hives Tetanus Allergy (Severe, Uncoded 07/27/25 15:47) Rash and Hives Office Meds romosozumab-aqqg 210 mg/2.34 mL(105 mg/1.17 mL x2)subcutaneous syringe Performing Provider: Alek Goodman MD Performing Location: [facility] Endocrinology Administered by: Betty Rucker RN on 08/13/25 14:30 Dose Route Admin Location Dispensed Lot Number Expiration Date [facility] Crop Consultant 210 mg subcut bilateral upper arms 2.34 mL [id number] 12/23/27 73955-075-81 AMGEN Total Dispensed Waste 2.34 mL 0 % Comments: Pt on electric wheelchair and accompanied by . No adverse reactions reported from previous injection. Pt tolerated injection well. Pt scheduled in 4 weeks for next appt. No further questions at this time. Assessment & Plan Assessment & Plan Orders: Orders AMB Romosozumab Injection Patient Supplied Today M81.0 - Age-related osteoporosis without current pathological fracture Coding
--- OUTSIDE RECORDS SUMMARY | 2025-08-13 19:42 | XMS_ITS | Clinical Summary ---
Author Organization [facility] Address [address] [place] [address] Care Team Providers Care Supervisor Cleaning And Annealing Name Role Phone Parul Vieira MD Primary [...] PO) Take by mouth. 0 Acti ve [place]-3-6-9 CAPS Take by mouth. 0 Acti ve [...] to complete this topic Care Teams Supervisor Cleaning And Annealing Relationship Specialty Start Date End Date Parul Vieira MD 2 [facility] , [address] [facility] Physician Associ D/B/A: [facility] [place] [address] PCP - General Internal Medicine 04/06/22
--- OUTSIDE RECORDS SUMMARY | 2025-08-13 19:42 | XMS_ITS | Encounter Summary ---
Author Organization [facility] Address [address] [place] [address] Care Team Providers Care Title Officer Name Role Phone Parul Sexton MD Primary Care Provider [phone] Reason for Visit * Reason Onset Date Comments Labs Only 08/12/2025 Encounter Details Date Type Department Care Team (Late st Contact Info) Description 08/12/[address] [place] [address] Ghazala Perdomo, RAKESH [address] [place] [address] Social History Tobacco Use Types Packs/Day Years Used Date Smoking Tobacco: Former Cigarettes 0 Q uit: 05/10/1979 Smokeless Tobacco: Never Alcohol [...] AM EDT documented as of this encounter Progress Notes * Laya Arrington - 08/12/2025 3:07 PM EST Patient is scheduled for a follow up next Sunday. Patient had labs done in [place] on 07/24/25. Lab results from [place] in the chart; does patient need to get the labs done that Ghazala put in for them back in May? documented in this encounter Plan of Treatment Upcoming Encounters Date Type Department Care Team (Late st Contact Info) Description 08/18/2025 3:00 PM EST Office Visit [facility] 175 [facility] [address] [place] [address] Charlie Grigsby MD 175 [place] [address] 12/08/2025 10:00 AM EDT Appointment [facility] 271 [facility] 2nd [place] [address] documented as of this encounter Goals [...] smoking on wound No Marielos Malagon RN Reduce tobacco use (cigarettes, smokeless, etc) Care Plan Education needed on impact of smoking on wound No Marielos Malagon RN Decrease Wound Volume by X% by [...] documented as of this encounter Care Teams Title Officer Relationship Specialty Start Date End Date Parul Sexton MD [address] [place] [address] , [address] Physician Associ D/B/A: [facility] ARIADNE Coreas PCP - General 04/06/22 documented as of this encounter
--- OUTSIDE RECORDS SUMMARY | 2025-08-13 19:42 | XMS_ITS | Clinical Summary ---
Author Organization [facility] Address [address] [place] [phone] Phone Care Team Providers Care Bill Distributor Name Role Phone Parul Sexton MD Primary Care Provider [phone] Allergies Active Allergy Reactions Criticality Noted Date [...] (one) time each day. Active fish,bora,flax oils-om3,6,9no1 (Mobile 3-6-9) 1,200 mg capsule Take 1,200 mg [...] Encounters Date Type Department Care Team Description 08/12/[address] [facility] 175 [facility] [address] [place] [phone] Ghazala Perdomo PA 06/29/2025 2:30 PM EDT Office Visit [facility] [address] [place] [phone] Johnny Doty PA Pressure ulcer of right buttock, stage 3 ([facility]/HCC V24, CMS/HCC V28) (Primary Dx) 06/09/2025 10:00 AM EDT - 06/09/2025 11:59 PM EDT Hospital Encounter [facility] [address] [facility] 2nd [place] [phone] Neuromyelitis optica spectrum disorder (CMS/HCC V24, CMS/HCC V28) (Primary Dx); Encounter for therapeutic drug monitoring; Vitamin D deficiency Discharge Disposition: Home or Self Care 06/01/2025 2:30 PM EDT Office Visit [facility] [address] [place] [phone] Gladys Tomas MD Stage II pressure ulcer of right buttock ([facility]/HCC V24, CMS/HCC V28) (Primary Dx) 05/18/2025 2:00 PM EDT Office Visit [facility] [address] [place] [phone] Gladys Tomas MD Stage II pressure ulcer of right buttock (CMS/HCC V24, CMS/HCC V28) (Primary Dx) from Last 3 Months Surgical History Surgery Date Site/Laterality Comments OTHER SURGICAL HISTORY PROCEDURE:LEG WOUND REPAIR / CLOSURE TRACHEOSTOMY TUBE PLACEMENT 10/25/2019 - 11/22/2019 TRACHEOSTOMY CLOSURE 03/24/2020 - 04/23/2020 OTHER SURGICAL HISTORY Coccyx removal OTHER SURGICAL HISTORY Melanoma removal POLYPECTOMY 04/2025 Medical History Medical History Date Comments Neuromyelitis optica spectru m disorder ([facility] V24, [facility] V28) DX:Neuromyelitis optica spe ctrum disorder ([facility]) Arthritis DX:Arthritis TMJ (dislocation of temporom andibular joint) DX:TMJ (dislocation of tempo romandibular joint) Migraines DX:Migraines Melanoma ([facility] V24, [facility] V28) DX:Melanoma ([facility]) Tinnitus Osteoporosis GERD (gastroesophageal reflux disease) COPD (chronic obstructive pu lmonary disease) ([facility] V24, [facility] V28) Family History Medical History Relation Name [...] Description 08/18/2025 3:00 PM EST Office Visit [facility] [address] [facility] [address] [place] [address] Charlie Grigsby MD 175 [place] [address] 12/08/2025 10:00 AM EDT Appointment [facility] [address] [facility] 2nd [place] [phone] Health Maintenance Due Date Last Done Comments [...] of Health Screening 09/02/2022 Depression Screening 09/24/2024 COVID-19 Vaccine ( season) 2025 12/02/2024, 07/03/2023, 09/05/2022, Additional history exists Influenza Vaccine (#1) 2025 , 09/05/2022, 08/25/2015, Additional history exists Falls Risk Assessment 05/18/2026 [...] integrity. 05/18/2025 Insurance MEDICARE MEDICA[place] - [place] [facility] Care Teams Bill Distributor Relationship Specialty Start Date End Date Parul Sexton MD 2 [facility] , [address] [facility] Physician Associ D/B/A: [facility] [place], [place] PCP - General 04/06/22
--- OUTSIDE RECORDS SUMMARY | 2025-08-13 19:42 | XMS_ITS | Encounter Summary ---
Author Organization [facility] Address [address] [place] [address] Care Team Providers Care Acid Splicer Name Role Phone Parul Sexton MD Primary Care Provider [phone] Encounter Details Date Type Department Care Team (Late st Contact Info) Description 02/12/2025 Lab Requisition [facility] - Main Lab [address] [facility] [place] [address] Imer Bolden MD 3640 [facility] 103 [place] [address] Urinary tract infection, site not specified Social [...] Department Care Team (Late Contact Info) Description 08/18/2025 3:00 PM EST Office Visit [facility] 175 [facility] [address] [place] [address] Charlie Grigsby MD 175 [place] [address] 12/08/2025 10:00 AM EDT Appointment [facility] [address] [phone] documented as of this encounter Goals Goal [...] Proteus mirabilis(A) MIGUEL 02/14/2025 9:50 AM EDT [facility] ([facility]) H[facility]PITAL [facility] Comment: The organism value for this result has been updated. These results have been appended to the previously preliminary verified report. Edited result: Previously reported as Proteus species on 02/13/2025 at 1046 EDT. Culture, Bacterial ID and Sensitivity Pseudomonas aeruginosa(A) MIGUEL 02/14/2025 9:50 AM EDT [facility] Comment: The organism value for [...] MICROBIOLOGY - G ENERAL ORDERABLES Final Result [facility] [address] [place] [address], [place] [phone] documented in this encounter Visit Diagnoses Diagnosis Urinary tract infection, site not specified documented in this encounter Additional Health Concerns Active Problems Noted Date Diagnosed Date Impaired Tissue 09/01/2024 Education needed on impact of smoking on wound 1 11/02/2023 Education needed related to ulceration/compromised skin integrity. 09/01/2024 documented as of this encounter Care Teams Acid Splicer Relationship Specialty Start Date End Date Parul Sexton MD 2 [facility] , [address] [place] [address] Physician Associ D/B/A: [facility] [place] [place] PCP - General 04/06/22 documented as of this encounter
== END 2025-08-13 14:40 | disposition home or self-care (01) ==
LOC: HO.ENCR 14:17
PROVIDERS: PCP Internal Medicine; Visit Provider Internal Medicine Endocrinology, Diabetes & Metabolism
DX: M81.0 Age-related osteoporosis without current pathological fracture (principal)

== ENCOUNTER → 2025-08-13 14:16 | Outpatient (BNVA) | payer MEDICARE, BC, MEDICAID, SELFPAY | PROVIDERS: PCP Internal Medicine; Visit Provider Internal Medicine Endocrinology, Diabetes & Metabolism | DX: M81.0 Age-related osteoporosis without current pathological fracture (principal); Z79.620 Long term (current) use of immunosuppressive biologic | CPT/HCPCS: 96372; J3111 ==

== ENCOUNTER 2025-09-10 14:19 | Outpatient (AMB) | payer MEDICARE, BC, MEDICAID, SELFPAY ==
--- NOTE | 2025-09-10 14:42 | AM.OFFVISNUR ---
Intake Visit Reasons: Evenity #8 Allergies blackberry Allergy (Severe, Verified 07/27/25 15:47) Rash and Hives lanolin Allergy (Severe, Verified 07/27/25 15:47) Rash and Hives latex (LATEX) Allergy (Severe, Verified 07/27/25 15:47) RASH Sulfa (Sulfonamide Antibiotics) (SULFA (SULFONAMIDE ANTIBIOTICS)) Allergy (Severe, Verified 07/27/25 15:47) JUANDICE tree nut (TREE NUT) Allergy (Severe, Verified 07/27/25 15:47) ANAPHYLAXIS rasberries Allergy (Severe, Uncoded 07/27/25 15:47) Rash and Hives Tetanus Allergy (Severe, Uncoded 07/27/25 15:47) Rash and Hives Office Meds romosozumab-aqqg 210 mg/2.34 mL(105 mg/1.17 mL x2)subcutaneous syringe Performing Provider: Alek Goodman MD Performing Location: [facility] Administered by: Betty Rucker RN on 09/10/25 14:35 Dose Route Admin Location Dispensed Lot Number Expiration Date [facility] Manager Of Learning 210 mg subcut bilateral upper arms 2.34 mL [id number] 01/22/28 74501-170-28 AMGEN Total Dispensed Waste 2.34 mL 0 % Comments: No adverse reactions reported from previous injection. Pt tolerated injection well. Pt scheduled in 4 weeks for next appt. No further questions at this time. Assessment & Plan Assessment & Plan Orders: Orders AMB Romosozumab Injection Patient Supplied Today M81.0 - Age-related osteoporosis without current pathological fracture Coding
--- OUTSIDE RECORDS SUMMARY | 2025-09-10 18:31 | XMS_ITS | Encounter Summary ---
Author Organization [facility] Address [address] [place] [address] Care Team Providers Care Compliance Quality Performance Analyst Name Role Phone Parul Sexton MD Primary Care Provider [phone] Encounter Details Date Type Department Care Team (Late Contact Info) Description 02/12/2025 Lab Requisition [facility] - Main Lab 299 [facility] [place] [phone] Imer Bolden MD [address] [address] Urinary tract infection, site not specified Social [...] Department Care Team (Late Contact Info) Description 12/08/2025 10:00 AM EDT Appointment [facility] Infusion Center 271 [facility] 2nd [place] [phone] 02/16/2026 2:30 PM EDT Office Visit [facility] [address] [facility] [address] [place] [address] Ghazala Perdomo PA [address] [place] [phone] documented as of this encounter Goals Goal [...] Proteus mirabilis(A) MIGUEL 02/14/2025 9:50 AM EDT [facility] H[facility] Comment: The organism value for this result has been updated. These results have been appended to the previously preliminary verified report. Edited result: Previously reported as Proteus species on 02/13/2025 at 1046 EDT. Culture, Bacterial ID and Sensitivity Pseudomonas aeruginosa(A) MIGUEL 02/14/2025 9:[address] [facility] Comment: The organism value for [...] - G ENERAL ORDERABLES Final Result [facility] ([facility]) [facility] [address] [place] [address], [place] [phone] documented in this encounter Visit Diagnoses Diagnosis Urinary tract infection, site not specified documented in this encounter Additional Health Concerns Active Problems Noted Date Diagnosed Date Impaired Tissue 09/01/2024 Education needed on impact of smoking on wound 1 11/02/2023 Education needed related to ulceration/compromised skin integrity. 09/01/2024 documented as of this encounter Care Teams Compliance Quality Performance Analyst Relationship Specialty Start Date End Date Parul Sexton MD 2 [facility] , [address] [place] [address] Physician Associ D/B/A: [facility] [place] PCP - General 04/06/22 documented as of this encounter
--- OUTSIDE RECORDS SUMMARY | 2025-09-10 18:31 | XMS_ITS | Clinical Summary ---
Author Organization [facility] Prior to 02/21/25 Address [address] [place] [address] Care Team Providers Care Hand Rigger Name Role Phone Parul Vieira MD Primary [...] PO) Take by mouth. 0 Acti ve [place]-3-6-9 CAPS Take by mouth. 0 Acti ve [...] age to complete this topic Care Teams Hand Rigger Relationship Specialty Start Date End Date Parul Vieira MD 2 [facility] , [address] [facility] Physician Associ D/B/A: [facility] [place] [address] PCP - General Internal Medicine 04/06/22
--- OUTSIDE RECORDS SUMMARY | 2025-09-10 18:31 | XMS_ITS | Clinical Summary ---
Author Organization [facility] Address [address] [place] [phone] Phone Care Team Providers Care Wig Sales Consultant Name Role Phone Parul Sexton MD Primary Care Provider [phone] Allergies Active Allergy Reactions Criticality Noted Date [...] 4 (four) times a day. 4 Active cholecalcifero l (VITAMIN D-3) 25 mcg [...] time each day. Active fish,bora,flax oils-om3,6,9no 1 ([place] 3-6-9) 1,200 mg capsule Take 1,200 mg by mouth 1 (one) time each day. Active zinc sulfate 66 mg tablet Take 66 mg by mouth 1 (one) time each day. Active calcium citrate (CALCITRATE) 950 mg (200 mg elemental calcium) tablet Take 1 tablet (950 mg total) by mouth 1 (one) time each day. Active baclofen (LIORESAL) 10 mg tablet Take 2 tablets (20 mg total) by mouth 2 (two) times a day. 360 each 2 5 Active romosozumab-aq qg (Evenity) Inject 2.34 mL (210 mg total) under the skin every 30 (thirty) days. Active cephalexin (KEFLEX) 500 mg capsule Take 1 capsule (500 mg total) by mouth 4 (four) times a day. 2 A DAY FOR 7 DAYS 025 Discontin ued(Thera py completed ) Active Problems Problem Noted Date Diagnosed Date Pressure ulcer of right buttock, stage 3 024 Neuromyelitis optica spectrum disorder Overview (09/01/2024): DX:Neuromyelitis optica spectrum disorder (HCC) Encounters Date Type Department Care Team Description 08/18/2025 3:00 PM EST Office Visit [facility] 175 [facility] 150 [place] [address] Charlie Grigsby MD Neuromyelitis optica spectrum disorder ([facility] V24, [facility] V28) (Primary Dx); High risk medication use; Myelopathy ([facility] V24, [facility] V28) 08/12/2025 Telephone [facility] [address] [address] Ghazala Perdomo PA 06/29/2025 2:30 PM EDT Office Visit [facility] [address] [place] [phone] Johnny Doty PA Pressure ulcer of right buttock, stage 3 ([facility] V24, [facility] V28) (Primary Dx) from Last 3 Months Surgical History Surgery Date Site/Laterality Comments OTHER SURGICAL HISTORY PROCEDURE:LEG WOUND REPAIR / CLOSURE TRACHEOSTOMY TUBE PLACEMENT 10/25/2019 - 11/22/2019 TRACHEOSTOMY CLOSURE 03/24/2020 - 04/23/2020 OTHER SURGICAL HISTORY Coccyx removal OTHER SURGICAL HISTORY Melanoma removal POLYPECTOMY 04/2025 Medical History Medical History Date Comments Neuromyelitis optica spectru m disorder ([facility]/HCC V24, [facility] V28) DX:Neuromyelitis optica spe ctrum disorder (HCC) Arthritis DX:Arthritis TMJ (dislocation of temporom andibular joint) DX:TMJ (dislocation of tempo romandibular joint) Migraines DX:Migraines Melanoma ([facility]/HCC V24, [facility] V28) DX:Melanoma (HCC) Tinnitus Osteoporosis GERD (gastroesophageal reflux disease) COPD (chronic obstructive pu lmonary disease) ([facility] V24, [facility] V28) Family History Medical History Relation Name [...] Orientation Straight 06/09/2025 10 :06 AM EDT Last Filed Vital Signs Vital Sign Reading Time Taken Comments Blood Pressure 92/49 06/29/2025 2:34 PM EDT Pulse 80 08/18/2025 2:53 PM EST Temperature 36.1 C (96.9 F) 08/18/2025 2:53 PM EST Respiratory Rate 16 06/29/2025 2:34 PM EDT Oxygen Saturation 96% 08/18/2025 2:53 PM EST Inhaled Oxygen Concentration - - Weight 70.3 kg (155 lb) 02/10/2025 2:59 PM EDT Height 172.7 cm (5' 8 ) 02/10/2025 2:59 PM EDT Body Mass Index 23.57 02/10/2025 2:59 PM EDT Plan of Treatment Upcoming Encounters Date Type Department Care Team (Late st Contact Info) Description 12/08/2025 10:[address] [facility]fusion [facility] 271 [facility] 2nd [place] [address] 02/16/2026 2:30 PM EDT Office Visit [facility] 175 [facility] [address] [place] [address] Ghazala Perdomo, RAKESH [address] [place] [address] Health Maintenance Due Date Last Done Comments [...] integrity. 05/18/2025 Insurance MEDICARE [place]ICA[place] - [place] [facility] Care Teams Wig Sales Consultant Relationship Specialty Start Date End Date Parul Sexton MD [address] [place] [address] , [address] [facility] D/B/A: [facility] [place], [place] PCP - General 04/06/22
== END 2025-09-10 14:40 | disposition home or self-care (01) ==
LOC: HO.ENCR 14:20
PROVIDERS: PCP Internal Medicine; Visit Provider Internal Medicine Endocrinology, Diabetes & Metabolism
DX: M81.0 Age-related osteoporosis without current pathological fracture (principal)

== ENCOUNTER → 2025-09-10 14:19 | Outpatient (BNVA) | payer MEDICARE, BC, MEDICAID, SELFPAY | PROVIDERS: PCP Internal Medicine; Visit Provider Internal Medicine Endocrinology, Diabetes & Metabolism | DX: M81.0 Age-related osteoporosis without current pathological fracture (principal) | CPT/HCPCS: 96372; J3111 ==

== ENCOUNTER 2025-09-11 14:28 | Outpatient (AMB) | payer MEDICARE, BC, MEDICAID, SELFPAY ==
[2025-09-11 14:29] VITALS: BP 90/60; PULSE 88; O2SAT 98
--- NOTE | 2025-09-11 14:29 | MHC.OFFVIS ---
Vital Signs 09/11/25 14:29 Height 5 ft 8 in BMI Reason not done Patient refused/unable BP 90/60 Blood Pressure Location Rt brachial Pulse 88 Pulse Source Pulse Oximeter Pulse Oximetry (%) 98 Oxygen Delivery Method Room Air Intake Visit Reasons: asthma Online [employer] Fitness Coach Required: No Ceramic Tile Setter: Ceramic Tile Setter offered & declined Allergies blackberry Allergy (Severe, Verified 09/11/25 14:32) Rash and Hives lanolin Allergy (Severe, Verified 09/11/25 14:32) Rash and Hives latex (LATEX) Allergy (Severe, Verified 09/11/25 14:32) RASH Sulfa (Sulfonamide Antibiotics) (SULFA (SULFONAMIDE ANTIBIOTICS)) Allergy (Severe, Verified 09/11/25 14:32) JUANDICE tree nut (TREE NUT) Allergy (Severe, Verified 09/11/25 14:32) ANAPHYLAXIS rasberries Allergy (Severe, Uncoded 07/27/25 15:47) Rash and Hives Tetanus Allergy (Severe, Uncoded 07/27/25 15:47) Rash and Hives HPI Comments Details: The patient is a 64 y/o woman with 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 The patient is wheelchair-bound. Currently has a number [address] She is starting to have some neck irritation related to a small area of granulation tissue. This is because the trach tends to rubbing her skin since is loose. She understands that she has to keep it nice and firm to her skin to avoid movement. The patient continues to have episodes of shortness of breath. She has tried to go back on her ventilator for work of breathing, but does not tolerate it any longer. Due to her worsening symptoms, significant restrictive lung disease and decreased forced vital capacity the patient needs to be on noninvasive ventilatory therapy. Therefore, I will need to establish her on noninvasive therapy with sip and puff. She has continued to use the percussion vest with good effect for mucous secretions. At this point her tracheostomy is plugged. No plans for decannulation at this time. Will continue to monitor her progression of her neuromucolar disease. 06/03/2020 the patient has a telephone visit. Overall she is doing well from a respiratory status. After the closure of the tracheostomy she has had a stronger voice in a stronger cough per the patient. The patient has been sleeping well. She usually sleeps without any assistance. Although, she does have a noninvasive ventilator that she can use if she develops any worsening respiratory capacity. In the mornings she may use the sip and puff device to offer increase expansion of her lungs and also offer gas exchange. Patient also has a percussion vest that she uses for mucus clearance and pulmonary toilet. This time she is scheduled to undergo surgery for a decubital ulcer and placement of a flap. She is going to be admitted to [facility]. The patient does have increased risk for perioperative pulmonary complications due to her neuromuscular disease which include: Atelectasis, hypoxia, hypercarbia, pneumonia, and prolonged mechanical ventilation. 09/03/2020 the patient has a telephone visit today. Overall she is doing well. She was discharged from [facility] multiple weeks while recovering from her surgery. At home she has been doing well. She continues use her percussion vest. She uses that daily. She has not required a sip and puff. She still has chronic respiratory failure due to her neuromuscular disease. Therefore she needs to have the noninvasive ventilator to minimize hypercarbia and worsening respiratory failure. She has been doing well after the decannulation. She was wondering about the vaccine. I explained to her that we have to get more information. She is immunocompromised we have to wait for the safety recommendations from the FDA. Otherwise patient is without any other complaints. 12/16/2020 the patient has a telephone visit. Overall the patient has been doing relatively okay. She has been having increasing shortness of breath specially in the morning. She feels chest tightness. She does use her short-acting beta agonist with improvement in her shortness of breath. She does have a nebulizer that she uses well. In the meantime she has been using her noninvasive ventilator a little more at nighttime because of it. She is also using the sip and puff during the daytime. Sometimes she does have some issues with her mask. Recently [facility] sent over respiratory therapist and there were able to adjust her machine and her mask she was very appreciated. At this point will optimize her respiratory therapy to treat her for the obstructive airway component with both albuterol and budesonide. The meantime will reassess the patient in the next 6 weeks with a chest x-ray to make sure that she is improving. 01/21/2021 the patient has a telephone visit today. Overall the patient is doing well. Her shortness of breath has improved. She responded well to the albuterol with budesonide treatments. She has been using her noninvasive ventilator primarily to the sip and puff. This has been affecting beneficial. However, she gets very dry. I will talk to [place]o by adding a humidifier so she can not tolerated better. In the meantime she does use a percussion vest for CPT with very good effect. She has not undergoing the chest x-ray as of yet. But she plans to do it when his safer for her to leave the house and go to a clinic or to a diagnostic center. If the patient is stable she can not wait to the next visit to have her x-ray prior to the visit otherwise she can have it done sooner. 03/03/2022 the patient is here for a pulmonary follow-up visit. Since we spoke the patient did develop COVID-19. The patient did have increased chest congestion. She was using the percussion vest with very good response. Sometimes she still had a hard time expectorating the phlegm that will get stuck in the middle of her chest and that was concerning to her . We did talk about considering a cough assist device. Specially if there is progressive worsening of her neuromuscular disease. She continues to follow closely by Neurology although that person may change. She has been on rituximab. I believe she is going to receive the next does coming up soon. The patient is sleeping well and she does not require any noninvasive therapy. Will have her undergo blood work including a venous gas to assess her CO2. 08/25/2022 the patient is here for a pulmonary follow-up visit. Overall the patient has been doing well. Her breathing has been back to her baseline. Denies any chest congestion. When she did have COVID at the patient was using the percussion vest more regularly. This has affecting beneficial. She was also using her nebulized therapy. Now she is back to her baseline. She is sleeping well. She is waking up rested. The patient did have a blood gas done back in the spring demonstrating normal pCO2. Plan to repeat the CO2 again in the spring. she is scheduled to have a repeat Rituxan does sometime in the next couple months. Will plan to have her undergo blood work including IgG level during her next visit to make sure that the rituximab is not resulting significant immunodeficiencies. 02/22/2023 the patient is here for a pulmonary follow-up visit. She continues to do well. Has not had any respiratory complaints. She has been performing the chest PT with percussion vest on a regular basis. She has been sleeping well without any oxygen. The patient's last blood gas was reassuring. She was supposed to have a blood gas this time around but clinically the patient is doing well and therefore we can hold off. She is getting her Rituxan every 6 months with good response. The only infections she has had from her condition is UTI so. She does have a catheter. Still however, no evidence of any significant immunodeficiency based on the Rituxan therapy. Will plan to follow-up in 8-12 months unless the patient develops any worsening symptoms. 03/17/2024 the patient is here for a pulmonary follow-up visit. She continues to do extremely well from a respiratory status. The Rituxan has been significantly helpful in holding any further decompensation from a respiratory status. She has been able to be off the ventilator. The patient also has a strong cough and is able to clear secretions on her own. She does want to get stronger. At this point will plan to request pulmonary function studies and she will be a great candidate for pulmonary rehabilitation to help her with her chronic restrictive lung disease for neuromuscular disease. In addition to that I did give the website that she can look for on the online rehab to look for additional resources. 11/25/2024 the patient is here for a pulmonary follow-up visit. The patient overall has been doing well. She has been getting stronger. The patient continues on Rituxan per Neurology. She is due to receive the next dose mid November. Therefore will try to facilitate her vaccines before the next dose. She will get her Prevnar 20 vaccine today and she can get her flu shot next week. Otherwise after her Rituxan she may not respond to antibiotics. She continues to sleep well without any oxygen or noninvasive ventilation. Her last chemistry demonstrated a normal bicarb suggesting no evidence of any hypercarbia which is extremely reassuring. Otherwise the patient is without any other complaints. 09/11/2025 the patient is here for pulmonary follow-up visit. Overall the patient continues to do well. She continues on Rituxan. She is wondering about additional vaccines. At this point after getting the Rituxan she should not get any vaccines since not going to be effective. She continues to use her nebulizer treatments with good effect. The patient does have a stronger cough therefore she will try to cough on her own. Will provide him with an Acapella valve in order to provide better chest PT in order to help her continue to encourage her to exercise her lungs. She is also exercising regularly. She also gets physical therapy regularly as well. No need for imaging at this time. The patient will return in 6 months if any issues arise she can always call for further recommendations. 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 Thigh shingles Vegetarian diet COVID-19 Diarrhea Edema of right foot Asthma-COPD overlap syndrome Breast pain, left Decubitus ulcer, stage 4 Mild depression Wheelchair bound Hypovitaminosis D B12 deficiency Muscle spasm Idiopathic hypotension Neuromyelitis Surgical History Tracheostomy status Status post insertion of percutaneous endoscopic gastrostomy (PEG) tube History of lipoma Family History (Updated 07/27/25 @ 15:57 by Parul Sexton MD) Father Diabetes Bone cancer Mother Diabetes Stroke Social History Housing: House Alcohol intake: never Patient Tobacco Use Status: Former Tobacco user Tobacco use type: Cigarette Years Smoked: 2 years e-Cigarette/Vaping Use: Never Used Second Hand Smoke Exposure: Yes service: No Current occupational status: disabled Cognitive needs: Yes (Power wheelchair) Hearing needs: No Vision needs: Yes (Glasses) Review of Systems Const Denies difficulty sleeping and Reports weakness Eyes Reports no additional complaints, Denies change in vision and Denies other visual disturbances ENT Denies change in voice Card Denies chest pain at rest, Denies chest pain with activity, Denies edema, Denies irregular heart rhythm, Denies claudication, Denies dyspnea, Denies dyspnea on exertion, Denies orthopnea, Denies paroxysmal nocturnal dyspnea and Denies slow heart rate Resp Denies cough, Denies dyspnea and Denies dyspnea on exertion GI Denies abdominal pain, Denies change in bowel habits, Denies excessive flatus, Denies nausea and Denies vomiting Reports as per HPI Musc Reports abnormal gait, Reports atrophy, Reports limited range of motion, Reports muscle cramps and Reports muscle weakness Skin/Breast Denies bleeding lesions, Denies changing lesions and Denies rash Neuro Reports as per HPI, Reports abnormal gait, Denies behavioral changes, Denies lack of coordination, Reports weakness and Reports other (wheelchair) Psych Denies behavioral changes Endo Denies cold intolerance Romeo/Lymph Denies easy bleeding and Denies easy bruising Aller/Immun Denies urticaria Physical Exam Vital Signs: Last Vital Signs Pulse 88 09/11/25 14:29 BP 90/60 09/11/25 14:29 Pulse Ox 98 09/11/25 14:29 Oxygen Delivery Method Room Air 09/11/25 14:29 Eyes General: appearance normal, both eyes and all related structures Eyelids: Yes eyelids normal Conjunctivae: conjunctivae normal Neck Neck: Yes normal visual inspection, Yes supple and Yes other (trach site closed) Chest Chest palpation & inspection: normal inspection of the chest Resp Effort & Inspection: normal respiratory effort Auscultation: diminished lung sounds Cardio Jugular venous distension: no JVD Rate: regular rate Rhythm: regular rhythm Heart sounds: S1 normal heart sound present and S2 normal heart sound present Assessment & Plan Assessment & Plan (1) Neuromyelitis: Comment: Resulting in Neuromuscular disease Code(s): G36.9 - Acute disseminated demyelination, unspecified Category: Medical (2) 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
--- OUTSIDE RECORDS SUMMARY | 2025-09-11 15:56 | XMS_ITS | Encounter Summary ---
Author Organization [facility] Address [address] [place] [address] Care Team Providers Care Test Kitchen Home Economist Name Role Phone Parul Sexton MD Primary Care Provider [phone] Encounter Details Date Type Department Care Team (Late Contact Info) Description 02/12/2025 Lab Requisition [facility] - Main Lab [address] [facility] [place] [phone] Imer Bolden MD [address] [address] Urinary tract infection, site not specified Social [...] Info) Description 12/08/2025 10:00 AM EDT Appointment [facility] [address] [facility] [address] [place] [phone] 02/16/2026 2:30 PM EDT Office Visit [facility] [address] [place] [address] Ghazala Perdomo PA [address] [place] [phone] documented as of this encounter Goals [...] Proteus mirabilis(A) MIGUEL 02/14/2025 9:50 AM EDT [facility] Comment: The organism value for this result has been updated. These results have been appended to the previously preliminary verified report. Edited result: Previously reported as Proteus species on 02/13/2025 at 1046 EDT. Culture, Bacterial ID and Sensitivity Pseudomonas aeruginosa(A) MIGUEL 02/14/2025 9:50 AM EDT [facility] Comment: The organism value for [...] MICROBIOLOGY - G ENERAL ORDERABLES Final Result [facility] [address] [place] [address], [place] [phone] documented in this encounter Visit Diagnoses Diagnosis Urinary tract infection, site not specified documented in this encounter Additional Health Concerns Active Problems Noted Date Diagnosed Date Impaired Tissue 09/01/2024 Education needed on impact of smoking on wound 1 11/02/2023 Education needed related to ulceration/compromised skin integrity. 09/01/2024 documented as of this encounter Care Teams Test Kitchen Home Economist Relationship Specialty Start Date End Date Parul Sexton MD [address] [facility] , [address] [place] [address] Physician Associ D/B/A: [facility] [place] PCP - General 04/06/22 documented as of this encounter
--- OUTSIDE RECORDS SUMMARY | 2025-09-11 15:56 | XMS_ITS | Clinical Summary ---
Author Organization [facility] Prior to 02/21/25 Address [address] [place] [address] Care Team Providers Care Window Draper Name Role Phone Parul Vieira MD Primary [...] PO) Take by mouth. 0 Acti ve Ball[place]-3-6-9 CAPS Take by mouth. 0 Acti ve [...] age to complete this topic Care Teams Window Draper Relationship Specialty Start Date End Date Parul Vieira MD [address] [facility] , [address] [facility] Physician [facility] D/B/A: [facility] [place] [address] PCP - General Internal Medicine 04/06/22
--- OUTSIDE RECORDS SUMMARY | 2025-09-11 15:56 | XMS_ITS | Clinical Summary ---
Author Organization [facility] Address [address] [place] [phone] Phone Care Team Providers Care Estimating Manager Name Role Phone Parul Sexton MD Primary Care Provider [phone] Allergies Active Allergy Reactions Criticality Noted Date [...] time each day. Active fish,bora,flax oils-om3,6,9no 1 ([place] 3-6-9) 1,200 mg capsule Take 1,200 mg [...] 3:00 PM EST Office Visit [facility] [address] [facility] [address] [place] [address] Charlie Grigsby MD Neuromyelitis optica spectrum disorder ([facility] V24, [facility] V28) (Primary Dx); High risk medication use; Myelopathy ([facility] V24, [facility] V28) 08/12/2025 Telephone [facility] [address] [address] Ghazala Perdomo PA 06/29/2025 2:30 PM EDT Office Visit [facility] [address] [place] [phone] Johnny Doty PA Pressure ulcer of right buttock, stage 3 ([facility] V24, [facility] V28) (Primary Dx) from Last 3 Months Surgical History Surgery Date Site/Laterality Comments OTHER SURGICAL HISTORY PROCEDURE:LEG WOUND REPAIR / CLOSURE TRACHEOSTOMY TUBE PLACEMENT 10/25/2019 - 11/22/2019 TRACHEOSTOMY CLOSURE 03/24/2020 - 04/23/2020 OTHER SURGICAL HISTORY Coccyx removal OTHER SURGICAL HISTORY Melanoma removal POLYPECTOMY 04/2025 Medical History Medical History Date Comments Neuromyelitis optica spectru m disorder ([facility]CC V24, [facility] V28) DX:Neuromyelitis optica spe ctrum disorder (HCC) Arthritis DX:Arthritis TMJ (dislocation of temporom andibular joint) DX:TMJ (dislocation of tempo romandibular joint) Migraines DX:Migraines Melanoma (CMS/HCC V24, [facility] V28) DX:Melanoma (HCC) Tinnitus Osteoporosis GERD (gastroesophageal reflux disease) COPD (chronic obstructive pu lmonary disease) ([facility] V24, [facility] V28) Family History Medical History [...] Info) Description 12/08/2025 10:00 AM EDT Appointment [facility] [address] [facility] 2nd [place] [address] 02/16/2026 2:30 PM EDT Office Visit [facility] [address] [facility] [address] [place] [address] Ghazala Perdomo, RAKESH [address] [place] [phone] Health Maintenance Due Date Last [...] integrity. 05/18/2025 Insurance MEDICARE MEDICAID - [place] [facility] Care Teams Estimating Manager Relationship Specialty Start Date End Date Parul Sexton MD [address] [place] [address] , [address] [facility] Physician Associ D/B/A: [facility] [place], [place] PCP - General 04/06/22
== END 2025-09-11 15:11 | disposition home or self-care (01) ==
PROVIDERS: PCP Internal Medicine; Visit Provider Hospitalist
DX: G36.9 Acute disseminated demyelination, unspecified (principal); J98.4 Other disorders of lung; G71.00 Muscular dystrophy, unspecified; J44.9 Chronic obstructive pulmonary disease, unspecified
CPT/HCPCS: 99214

== ENCOUNTER → 2025-09-11 14:28 | Outpatient (BNVA) | payer MEDICARE, BC, MEDICAID, SELFPAY | PROVIDERS: PCP Internal Medicine; Visit Provider Hospitalist | DX: G36.0 Neuromyelitis optica [Devic] (principal); J98.4 Other disorders of lung; G71.00 Muscular dystrophy, unspecified; J44.89 Other specified chronic obstructive pulmonary disease; Z93.0 Tracheostomy status; Z99.3 Dependence on wheelchair | CPT/HCPCS: 99212 ==